=== PATIENT | male | born 1940 | race Caucasian/White ===

== ENCOUNTER 2017-07-17 15:45 | Emergency (ER) | payer MEDICARE, BC ==
[2017-07-17 15:51] VITALS: TEMP 98.2
[2017-07-17 16:05] LABS: Glucose,Whole Blood 424 mg/dL (75-99)
[2017-07-17] MEDS ORDERED: SODIUM CHLORIDE 0.9% 2,000 ML IV ONE (16:08)
--- NOTE | 2017-07-17 16:13 | ED ---
Recheck HPI - General Chief Complaint: Recheck/Abnormal Lab/Rx Stated Complaint: Blood Sugar @ 600 Time Seen by Provider: 07/17/17 15:55 Source: patient, family Mode of arrival: ambulatory Limitations: no limitations - History of Present Illness Initial Comments: Patient is a 76-year-old diabetic male who presents with a chief complaint of hyperglycemia. Patient was instructed by his primary care physician to come to the ER today as he had his labs drawn yesterday and was found to have a blood sugar of 600. Patient has no complaints at this time. On arrival, blood sugar was 440. Patient states he takes metformin for his diabetes but he is noncompliant. Patient admits to polydipsia, and polyuria. Patient denies any shortness of breath, abdominal pain, nausea or vomiting. MD Complaint: abnormal lab - Related Data Home Medications Medication Instructions Recorded Confirmed Lisinopril-Hctz 10-12.5 mg 1 tab PO DAILY 07/17/17 07/17/17 [Zestoretic 10-12.5] metFORMIN HCL 1,000 mg PO BID 07/17/17 07/17/17 Allergies Allergy/AdvReac Type Severity Reaction Status Date / Time No Known Allergies Allergy Verified 07/17/17 16:21 Review of Systems ROS Statement: Those systems with pertinent positive or pertinent negative responses have been documented in the HPI. ROS Other: All systems not noted in ROS Statement are negative. Constitutional: Denies: fever, chills Eyes: Denies: vision change ENT: Denies: ear pain, throat pain Respiratory: Denies: cough, dyspnea Cardiovascular: Denies: chest pain, palpitations Endocrine: Denies: fatigue Gastrointestinal: Denies: abdominal pain, nausea, vomiting Genitourinary: Reports: frequency. Denies: dysuria Musculoskeletal: Denies: back pain Skin: Denies: rash, lesions Neurological: Denies: headache, weakness Psychiatric: Denies: anxiety, depression Past Medical History Past Medical History: Diabetes Mellitus History of Any Multi-Drug Resistant Organisms: None Reported Past Surgical History: Coronary Bypass/CABG Past Psychological History: No Psychological Hx Reported Smoking Status: Former smoker Past Alcohol Use History: None Reported Past Drug Use History: None Reported General Exam Limitations: no limitations General appearance: alert, in no apparent distress Head exam: Present: atraumatic, normocephalic Eye exam: Present: normal appearance, PERRL ENT exam: Present: normal exam, mucous membranes moist Neck exam: Present: normal inspection. Absent: tenderness Respiratory exam: Present: normal lung sounds bilaterally. Absent: respiratory distress, wheezes Cardiovascular Exam: Present: regular rate, normal rhythm, normal heart sounds GI/Abdominal exam: Present: soft. Absent: distended, tenderness, guarding Rectal exam: Present: deferred Extremities exam: Present: normal inspection Back exam: Present: normal inspection Neurological exam: Present: alert, oriented X3, CN II-XII intact, normal gait Psychiatric exam: Present: normal affect, normal mood Skin exam: Present: warm, dry, intact Course Vital Signs 07/17/17 07/17/17 15:48 17:15 Temperature 98.2 F Pulse Rate 89 Respiratory 20 16 Rate Blood Pressure 134/60 O2 Sat by Pulse 98 Oximetry Medical Decision Making - Medical Decision Making Patient is a 76-year-old male, known diabetic, who presents at the request of his primary care physician for hyperglycemia. Patient had his labs drawn yesterday and he had a blood sugar of over 600. Today POC glucose was just over 440. Patient does not show any physical signs of DKA, or hyper-ketotic state. Patient has no complaints at this time, he further denies any abdominal pain, respiratory distress, nausea or vomiting. We'll send basic labs including acetone, and serum osmolality. Patient will be given 2 L of IV fluid initially. 8:22 PM After 2 L of fluid, patient's blood sugar improved to high 300 range. Patient was given 5 units of subcutaneous insulin and another liter of fluid. I attempted to contact patient's primary care physician however he was unavailable. Patient has remained stable in the emergency department for 4-1/2 hours. Blood glucose is trending down, currently in the low 300 range. I'm hesitant to bring the patient's blood sugar down anymore as he admits to being noncompliant, and likely normally lives in a hyperglycemic state. Labs otherwise not indicate any evidence of a hyper-ketotic or hyper-osmolal state. Patient was instructed to take his home medications as prescribed. He is instructed to follow up with primary care and possibly endocrinology if need be. He and his daughter were given specific signs and symptoms that should alert the patient for repeat visit to the emergency department. At this time, patient wishes to be discharged home. I was assured that he has help at home, and people that will check on him. At this time, all questions are answered to the best of my ability, she is stable for discharge. - Lab Data Result diagrams: 07/17/17 16:15 07/17/17 16:15 Lab Results 07/17/17 07/17/17 07/17/17 Range/Units 16:01 16:15 16:15 WBC 8.8 (3.8-10.6) k/uL RBC 4.60 (4.30-5.90) m/uL Hgb 14.3 (13.0-17.5) gm/dL Hct 43.2 (39.0-53.0) % MCV 93.9 (80.0-100.0) fL MCH 31.0 (25.0-35.0) pg MCHC 33.0 (31.0-37.0) g/dL RDW 14.4 (11.5-15.5) % Plt Count 261 (150-450) k/uL Neutrophils % 63 % Lymphocytes % 27 % Monocytes % 6 % Eosinophils % 2 % Basophils % 1 % Neutrophils # 5.5 (1.3-7.7) k/uL Lymphocytes # 2.3 (1.0-4.8) k/uL Monocytes # 0.5 (0-1.0) k/uL Eosinophils # 0.1 (0-0.7) k/uL Basophils # 0.0 (0-0.2) k/uL Sodium 135 L (137-145) mmol/L Potassium 4.8 (3.5-5.1) mmol/L Chloride 96 L (98-107) mmol/L Carbon Dioxide 27 (22-30) mmol/L Anion Gap 12 mmol/L BUN 21 H (9-20) mg/dL Creatinine 1.01 (0.66-1.25) mg/dL Est GFR (MDRD) Af Amer >60 (>60 ml/min/1.73 sqM) Est GFR (MDRD) Non-Af >60 (>60 ml/min/1.73 sqM) Glucose 477 H* (74-99) mg/dL POC Glucose (mg/dL) 424 H (75-99) mg/dL POC Glu Marine Machinist ID Lucero Lambert Osmolality 302 H (280-301) mosm/kg Calcium 9.3 (8.4-10.2) mg/dL Urine Color Urine Appearance (Clear) Urine pH (5.0-8.0) Ur Specific [place] (1.001-1.035) Urine Protein (Negative) Urine Glucose (UA) (Negative) Urine Ketones (Negative) Urine Blood (Negative) Urine Nitrite (Negative) Urine Bilirubin (Negative) Urine Urobilinogen (<2.0) mg/dL Ur Leukocyte Esterase (Negative) Acetone, Qual Negative (Negative) 07/17/17 07/17/17 07/17/17 Range/Units 17:43 18:23 20:02 WBC (3.8-10.6) k/uL RBC (4.30-5.90) m/uL Hgb (13.0-17.5) gm/dL Hct (39.0-53.0) % MCV (80.0-100.0) fL MCH (25.0-35.0) pg MCHC (31.0-37.0) g/dL RDW (11.5-15.5) % Plt Count (150-450) k/uL Neutrophils % % Lymphocytes % % Monocytes % % Eosinophils % % Basophils % % Neutrophils # (1.3-7.7) k/uL Lymphocytes # (1.0-4.8) k/uL Monocytes # (0-1.0) k/uL Eosinophils # (0-0.7) k/uL Basophils # (0-0.2) k/uL Sodium (137-145) mmol/L Potassium (3.5-5.1) mmol/L Chloride (98-107) mmol/L Carbon Dioxide (22-30) mmol/L Anion Gap mmol/L BUN (9-20) mg/dL Creatinine (0.66-1.25) mg/dL Est GFR (MDRD) Af Amer (>60 ml/min/1.73 sqM) Est GFR (MDRD) Non-Af (>60 ml/min/1.73 sqM) Glucose (74-99) mg/dL POC Glucose (mg/dL) 344 H 312 H (75-99) mg/dL POC Glu Marine Machinist ID Lucero Lambert Daniel Osmolality (280-301) mosm/kg Calcium (8.4-10.2) mg/dL Urine Color Light Yellow Urine Appearance Clear (Clear) Urine pH 7.5 (5.0-8.0) Ur Specific [place] 1.023 (1.001-1.035) Urine Protein Negative (Negative) Urine Glucose (UA) 4+ H (Negative) Urine Ketones Negative (Negative) Urine Blood Negative (Negative) Urine Nitrite Negative (Negative) Urine Bilirubin Negative (Negative) Urine Urobilinogen <2.0 (<2.0) mg/dL Ur Leukocyte Esterase Negative (Negative) Acetone, Qual (Negative) Disposition Clinical Impression: Hyperglycemia, Medical non-compliance Disposition: HOME SELF-CARE Condition: Good Instructions: Diabetes Insipidus (ED), Diabetic Hyperglycemia (ED) Referrals: Socrates Finch MD [Primary Care Provider] - 1-2 days
[2017-07-17 16:28] LABS: Basophils % (A) 1 %; CH 32.3; CHCM 34.5; Eosinophils # (A) 0.1 k/uL (0-0.7); Eosinophils % (A) 2 %; HCT 43.2 % (39.0-53.0); HDW 2.56; HGB 14.3 gm/dL (13.0-17.5); Luc # (Auto) 0.19; Luc % (Auto) 2; Lymphocytes # (A) 2.3 k/uL (1.0-4.8); Lymphocytes % (A) 27 %; MCV 93.9 fL (80.0-100.0); Mean Platelet Volume 9.1; Monocytes # (A) 0.5 k/uL (0-1.0); Monocytes % (A) 6 %; Neutrophils # (A) 5.5 k/uL (1.3-7.7); Neutrophils % (A) 63 %; RDW 14.4 % (11.5-15.5); WBC 8.8 k/uL (3.8-10.6); WBC (Perox) 8.93
[2017-07-17 16:35] LABS: Anion Gap 12 mmol/L; Blood Urea Nitrogen 21 mg/dL (9-20); Calcium 9.3 mg/dL (8.4-10.2); Carbon Dioxide 27 mmol/L (22-30); Chloride 96 mmol/L (98-107); Non-African American GFR(MDRD) >60 (>60 ml/min/1.73 sqM); Potassium 4.8 mmol/L (3.5-5.1); Sodium 135 mmol/L (137-145)
[2017-07-17 16:47] LABS: Glucose 477 mg/dL (74-99)
[2017-07-17 17:59] LABS: Appearance,Urine Clear (Clear); Bilirubin,Urine Negative (Negative); Glucose,Urine (UA) 4+ (Negative); Ketones,Urine Negative (Negative); Leukocyte Esterase,Urine Negative (Negative); Nitrite,Urine Negative (Negative); PH, Urine 7.5 (5.0-8.0); Protein,Urine Negative (Negative); Specific Gravity,Urine 1.023 (1.001-1.035); UA Billing (MACRO vs. MICRO) CHEM; Urobilinogen,Urine <2.0 mg/dL (<2.0)
[2017-07-17 18:27] LABS: Glucose,Whole Blood 344 mg/dL (75-99)
[2017-07-17] MEDS ORDERED: INSULIN REGULAR 100 UNIT/ML VIAL SQ ONE (18:37)
[2017-07-17] MEDS ORDERED: SODIUM CHLORIDE 0.9% 1,000 ML IV ONE (18:37)
[2017-07-17 20:17] LABS: Glucose,Whole Blood 312 mg/dL (75-99)
[2017-07-17 20:38] VITALS: BP 146/88; PULSE 78; RESP 18
== END 2017-07-17 20:37 | disposition home or self-care (01) ==
LOC: EC 15:45
DX: E11.65 Type 2 diabetes mellitus with hyperglycemia (principal); Z91.14 Patient's other noncompliance with medication regimen; Z87.891 Personal history of nicotine dependence; Z79.84 Long term (current) use of oral hypoglycemic drugs; Z79.899 Other long term (current) drug therapy; Z95.1 Presence of aortocoronary bypass graft
CPT/HCPCS: 36415; 80048; 81003; 82009; 83930; 85025; 96360; 96361; 99284

== ENCOUNTER 2018-01-30 12:28 | Emergency (ER) | payer BC, MEDICARE ==
[2018-01-30 13:56] LABS: Basophils % (A) 1 %; Eosinophils # (A) 0.1 k/uL (0-0.7); Eosinophils % (A) 2 %; HCT 44.8 % (39.0-53.0); HGB 15.9 gm/dL (13.0-17.5); Lymphocytes % (A) 27 %; MCH 31.7 pg (25.0-35.0); MCHC 35.5 g/dL (31.0-37.0); MCV 89.1 fL (80.0-100.0); Mean Platelet Volume 9.1; Monocytes # (A) 0.7 k/uL (0-1.0); Monocytes % (A) 9 %; Neutrophils # (A) 4.4 k/uL (1.3-7.7); Neutrophils % (A) 59 %; Platelet Count 260 k/uL (150-450); RBC 5.02 m/uL (4.30-5.90); RDW 12.8 % (11.5-15.5); WBC 7.5 k/uL (3.8-10.6)
[2018-01-30 14:07] LABS: Calcium 9.8 mg/dL (8.4-10.2); Potassium 4.2 mmol/L (3.5-5.1); Total Bilirubin 0.5 mg/dL (0.2-1.3)
[2018-01-30] MEDS ORDERED: SODIUM CHLORIDE 0.9% 500 ML IV ONE (14:45)
[2018-01-30] MEDS ORDERED: SODIUM CHLORIDE 0.9% 1,000 ML IV SCH (14:45)
[2018-01-30] MEDS ORDERED: chlorproMAZINE 25 MG TAB PO PRN (14:48)
--- NOTE | 2018-01-30 14:50 | ED ---
Nausea/Vomiting/Diarrhea HPI - General Chief complaint: Nausea/Vomiting/Diarrhea Stated complaint: Abd pain Time Seen by Provider: 01/30/18 13:29 Source: patient, family Mode of arrival: wheelchair Limitations: no limitations - History of Present Illness Initial comments: [age] years old male comes in with abdominal discomfort he threw up yesterday twice and he also has a problem with handcuffs and heartburn for a few weeks now and on at this time he has no handcuffs but he was bothered by the earlier today also complaining about heartburn for 2 days, he denies any chest pain denies any shortness of breath no pleuritic chest pain mild discomfort in the epigastric area when moving his bowels pretty good, no trouble voiding no frequency urgency dysuria no symptoms of TIA or CVA - Related Data Home Medications Medication Instructions Recorded Confirmed Lisinopril-Hctz 10-12.5 mg 1 tab PO HS 07/17/17 01/30/18 [Zestoretic 10-12.5] metFORMIN HCL 1,000 mg PO BID 07/17/17 01/30/18 Aspirin EC [Ecotrin Low Dose] 81 mg PO HS 01/30/18 01/30/18 Insulin NPH Hum/Reg Insulin Hm 10 unit SQ AC-BRKFST@0700 01/30/18 01/30/18 [NovoLIN 70-30 100 UNIT/ML VIAL] Insulin NPH Hum/Reg Insulin Hm 20 unit SQ AC-SUPPER 01/30/18 01/30/18 [NovoLIN 70-30 100 UNIT/ML VIAL] Previous Rx's Medication Instructions Recorded Ranitidine HCl [Zantac] 150 mg PO BID #60 tab 01/30/18 Allergies Allergy/AdvReac Type Severity Reaction Status Date / Time No Known Allergies Allergy Verified 01/30/18 14:56 Review of Systems ROS Statement: Those systems with pertinent positive or pertinent negative responses have been documented in the HPI. ROS Other: All systems not noted in ROS Statement are negative. Past Medical History Past Medical History: Diabetes Mellitus History of Any Multi-Drug Resistant Organisms: None Reported Past Surgical History: Coronary Bypass/CABG Past Psychological History: No Psychological Hx Reported Smoking Status: Former smoker Past Alcohol Use History: None Reported Past Drug Use History: None Reported General Exam - General Exam Comments Initial Comments: General: The patient is awake and alert, in no distress, and does not appear acutely ill. GCS is 15 Skin: Skin is warm and dry and no rashes or lesions are noted. Eye: Pupils are equal, round and reactive to light, extra-ocular movements are intact; there is normal conjunctiva bilaterally. Ears, nose, mouth and throat: There are moist mucous membranes and no oral lesions. Neck: The neck is supple, there is no tenderness, no signs of meningitis Cardiovascular: There is a regular rate and rhythm. No murmur, rub or gallop is appreciated. Respiratory: To auscultation bilateral, no wheezing no rhonchi no distress respiratory wilkes noticed Gastrointestinal: Soft, non-distended, non-tender abdomen without masses or organomegaly noted. There is no rebound or guarding present. Bowel sounds are unremarkable. Back: There is no tenderness to palpation in the midline. There is no obvious deformity. Musculoskeletal: Normal ROM, no tenderness, There is no pedal edema. There is no calf tenderness or swelling. No cords were appreciated. Neurological: CN II-XII intact, Cranial nerves III through XII are intact. There are no obvious motor or sensory deficits. Coordination appears grossly intact. Speech is normal. Psychiatric: Cooperative, appropriate mood & affect, normal judgment. Limitations: no limitations Course Vital Signs 01/30/18 01/30/18 01/30/18 12:38 15:51 15:53 Temperature 97.6 F Pulse Rate 79 Pulse Rate [ 76 76 Printing Equipment Mechanic Apprentice ] Respiratory 18 Rate Blood Pressure 118/58 Blood Pressure 133/69 126/70 [Right Arm] O2 Sat by Pulse 96 Oximetry 01/30/18 01/30/18 15:54 16:53 Temperature 98.4 F Pulse Rate 81 Pulse Rate [ 87 Printing Equipment Mechanic Apprentice ] Respiratory 16 Rate Blood Pressure 127/63 Blood Pressure 141/74 [Right Arm] O2 Sat by Pulse 95 Oximetry EKG is a normal sinus rhythm ventricular rate is 81 NV interval is 158 QRS duration is 68 QT/QTC 378/439 review of this EKG does not reveal any ST elevation or ST depression Patient is SENT PATIENT IS REASSESSED AT 1645, x-rays unremarkable he noticed some gallstones and the chest x-ray, troponin, CBC, comp his [place] metabolic panel, EKG are all unremarkable patient be gone home to follow with her family doctor or return to the ER if symptoms get worse Medical Decision Making - Lab Data Result diagrams: 01/30/18 13:44 04/07/18 13:44 Lab Results 01/30/18 01/30/18 01/30/18 Range/Units 13:44 13:44 13:44 WBC 7.5 (3.8-10.6) k/uL RBC 5.02 (4.30-5.90) m/uL Hgb 15.9 (13.0-17.5) gm/dL Hct 44.8 (39.0-53.0) % MCV 89.1 (80.0-100.0) fL MCH 31.7 (25.0-35.0) pg MCHC 35.5 (31.0-37.0) g/dL RDW 12.8 (11.5-15.5) % Plt Count 260 (150-450) k/uL Neutrophils % 59 % Lymphocytes % 27 % Monocytes % 9 % Eosinophils % 2 % Basophils % 1 % Neutrophils # 4.4 (1.3-7.7) k/uL Lymphocytes # 2.0 (1.0-4.8) k/uL Monocytes # 0.7 (0-1.0) k/uL Eosinophils # 0.1 (0-0.7) k/uL Basophils # 0.0 (0-0.2) k/uL Sodium 139 (137-145) mmol/L Potassium 4.2 (3.5-5.1) mmol/L Chloride 98 (98-107) mmol/L Carbon Dioxide 24 (22-30) mmol/L Anion Gap 17 mmol/L BUN 34 H (9-20) mg/dL Creatinine 1.10 (0.66-1.25) mg/dL Est GFR (CKD-EPI)AfAm 74 (>60 ml/min/1.73 sqM) Est GFR (CKD-EPI)NonAf 64 (>60 ml/min/1.73 sqM) Glucose 183 H (74-99) mg/dL Calcium 9.8 (8.4-10.2) mg/dL Total Bilirubin 0.5 (0.2-1.3) mg/dL AST 20 (17-59) U/L ALT 18 L (21-72) U/L Alkaline Phosphatase 56 (38-126) U/L Troponin I (0.000-0.034) ng/mL C-Reactive Protein 8.0 (<10.0) mg/L Total Protein 7.0 (6.3-8.2) g/dL Albumin 4.0 (3.5-5.0) g/dL Amylase 50 (30-110) U/L Lipase 59 (23-300) U/L 01/30/18 Range/Units 13:44 WBC (3.8-10.6) k/uL RBC (4.30-5.90) m/uL Hgb (13.0-17.5) gm/dL Hct (39.0-53.0) % MCV (80.0-100.0) fL MCH (25.0-35.0) pg MCHC (31.0-37.0) g/dL RDW (11.5-15.5) % Plt Count (150-450) k/uL Neutrophils % % Lymphocytes % % Monocytes % % Eosinophils % % Basophils % % Neutrophils # (1.3-7.7) k/uL Lymphocytes # (1.0-4.8) k/uL Monocytes # (0-1.0) k/uL Eosinophils # (0-0.7) k/uL Basophils # (0-0.2) k/uL Sodium (137-145) mmol/L Potassium (3.5-5.1) mmol/L Chloride (98-107) mmol/L Carbon Dioxide (22-30) mmol/L Anion Gap mmol/L BUN (9-20) mg/dL Creatinine (0.66-1.25) mg/dL Est GFR (CKD-EPI)AfAm (>60 ml/min/1.73 sqM) Est GFR (CKD-EPI)NonAf (>60 ml/min/1.73 sqM) Glucose (74-99) mg/dL Calcium (8.4-10.2) mg/dL Total Bilirubin (0.2-1.3) mg/dL AST (17-59) U/L ALT (21-72) U/L Alkaline Phosphatase (38-126) U/L Troponin I <0.012 (0.000-0.034) ng/mL C-Reactive Protein (<10.0) mg/L Total Protein (6.3-8.2) g/dL Albumin (3.5-5.0) g/dL Amylase (30-110) U/L Lipase (23-300) U/L Disposition Clinical Impression: Heartburn, Hiccup Disposition: HOME SELF-CARE Condition: Good Instructions: Acute Nausea and Vomiting in Children (ED), Acute Nausea and Vomiting (ED) Prescriptions: Ranitidine HCl [Zantac] 150 mg PO BID #60 tab Referrals: Socrates Finch MD [Primary Care Provider] - 1-2 days
[2018-01-30] MEDS ORDERED: MAG HYDROX/AL HYDROX/SIMETH 30 ML, HYOSCYAMINE ELIXIR 10 ML, CIMETIDINE HCL 300 MG, LID... PO STA ×4 (14:59)
--- NOTE | 2018-01-30 15:08 | XR ---
EXAMINATION TYPE: XR KUB DATE OF EXAM: 01/30/2018 2:58 PM CLINICAL HISTORY: Nausea vomiting and diarrhea with pain. TECHNIQUE: Two Upright KUB images of the abdomen are obtained. COMPARISON: None. FINDINGS: Scattered gas is seen in non-distended small bowel loops. Gas and fecal material is seen in non-distended colon. Numerous rim calcified gallstones are present. There is partial visualization o f surgical wires and mediastinal clips. Lung bases are clear. No pneumoperitoneum is evident. Vascula r calcification in pelvis is seen. Visualized osseous structures are intact. IMPRESSION: Overall nonobstructive bowel gas pattern. Numerous gallstones noted.
[2018-01-30 16:53] VITALS: BP 127/63; PULSE 81; RESP 16; TEMP 98.4
== END 2018-01-30 17:05 | disposition home or self-care (01) ==
LOC: EC 12:28
DX: R12 Heartburn (principal); R06.6 Hiccough; K80.80 Other cholelithiasis without obstruction; E11.9 Type 2 diabetes mellitus without complications; Z87.891 Personal history of nicotine dependence; Z79.4 Long term (current) use of insulin; Z79.899 Other long term (current) drug therapy; Z79.82 Long term (current) use of aspirin
CPT/HCPCS: 36415; 74018; 80053; 82150; 83690; 84484; 85025; 86140; 93005; 96360; 99284

== ENCOUNTER 2019-02-19 13:50 | Emergency (ER) | payer MEDICARE ==
[2019-02-19 14:00] VITALS: TEMP 97.9
[2019-02-19] MEDS ORDERED: SODIUM CHLORIDE 0.9% 1,000 ML IV STA ×2 (14:53)
[2019-02-19 15:23] LABS: Albumin 4.4 g/dL (3.5-5.0); Calcium 9.6 mg/dL (8.4-10.2); Total Bilirubin 0.8 mg/dL (0.2-1.3); Total Protein 7.3 g/dL (6.3-8.2)
[2019-02-19 15:24] VITALS: PULSE 76
--- NOTE | 2019-02-19 15:27 | ED ---
General Adult HPI - General Chief complaint: Neuro Symptoms/Deficit Stated complaint: Unsteady Time Seen by Provider: 02/19/19 14:32 Source: patient, RN notes reviewed, old records reviewed Mode of arrival: wheelchair Limitations: physical limitation - History of Present Illness Initial comments: Patient 78-year-old male presents for urgency department today with his daughter with complaints of unsteady gait and drifting to the right side with walking for the past week. Patient has had a chronic right leg swelling after coronary artery bypass surgery and venous grafting 20 years ago. He denies any recent fall or trauma to the leg. Patient states he has no pain at this time. He states that this uses more weak on the right leg as far as ambulating. Patient denies any headache or chest pain at this time. Patient's family reports he has a chronic right-sided lip for the past 3 years. Patient is walking more and seems to be more pronounced. He denies any right leg pain at this time. - Related Data Home Medications Medication Instructions Recorded Confirmed Lisinopril-Hctz 10-12.5 mg 0.5 tab PO HS 07/17/17 02/19/19 [Zestoretic 10-12.5] metFORMIN HCL 1,000 mg PO BID 07/17/17 02/19/19 Aspirin EC [Ecotrin Low Dose] 81 mg PO HS 01/30/18 02/19/19 Insulin NPH Hum/Reg Insulin Hm 10 unit SQ AC-BRKFST@0700 01/30/18 02/19/19 [NovoLIN 70-30 100 UNIT/ML VIAL] Insulin NPH Hum/Reg Insulin Hm 20 unit SQ AC-SUPPER 01/30/18 02/19/19 [NovoLIN 70-30 100 UNIT/ML VIAL] Previous Rx's Medication Instructions Recorded Ranitidine HCl [Zantac] 150 mg PO BID #60 tab 01/30/18 Allergies Allergy/AdvReac Type Severity Reaction Status Date / Time No Known Allergies Allergy Verified 02/19/19 14:28 Review of Systems ROS Statement: Those systems with pertinent positive or pertinent negative responses have been documented in the HPI. ROS Other: All systems not noted in ROS Statement are negative. Past Medical History Past Medical History: Coronary Artery Disease (CAD), Dementia, Diabetes Mellitus, GERD/Reflux, Hypertension Additional Past Medical History / Comment(s): edema History of Any Multi-Drug Resistant Organisms: None Reported Past Surgical History: Coronary Bypass/CABG Past Psychological History: No Psychological Hx Reported Smoking Status: Former smoker Past Alcohol Use History: None Reported Past Drug Use History: None Reported General Exam - General Exam Comments Initial Comments: This is a pleasant 78-year-old male. Alert and oriented. No distress. General: Well appearing, well nourished, in no distress. Oriented x 3, normal mood and affect . Ambulating with right leg catching up to left leg leading. Family reports this is normal and for 3 years. Skin: Good turgor, no rash, unusual bruising or prominent lesions Hair: Normal texture and distribution. HEENT: Head: Normocephalic, atraumatic, no visible or palpable masses, depressions, or scaring. Eyes: Visual acuity intact, conjunctiva clear, sclera non-icteric, EOM intact, PERRL. Ears: EACs clear, TMs translucent & cone of light visualized. hearing intact. Nose: No external lesions, mucosa non-inflamed, septum and turbinates normal Mouth: Mucous membranes moist, no mucosal lesions. Teeth/Gums: No obvious caries or periodontal disease. No gingival inflammation or significant resorption. Pharynx: Mucosa non-inflamed, no tonsillar hypertrophy or exudate Neck: Supple, without lesions, bruits, or adenopathy, thyroid non-enlarged and non-tender Heart: No cardiomegaly or thrills; regular rate and rhythm, no murmur or gallop Lungs: Clear to auscultation and percussion Abdomen: Bowel sounds normal, no tenderness, organomegaly, masses, or hernia Back: Spine normal without deformity or tenderness, no CVA tenderness Extremities: No amputations or deformities. Minimal swelling on RLE, family reports it is chronic. Musculoskeletal: Normal gait and station. No misalignment, asymmetry, crepitation, defects, tenderness, masses, effusions, decreased range of motion, instability, atrophy or abnormal strength or tone in the head, neck, spine, ribs, pelvis or extremities. Neurologic: CN 2-12 normal. Sensation to pain, touch, and proprioception normal. DTRs normal in upper and lower extremities. No pathologic reflexes. Psychiatric: Oriented X3, intact recent and remote memory, judgment and insight, normal mood and affect. Limitations: physical limitation Course Vital Signs 02/19/19 02/19/19 02/19/19 13:56 14:30 15:00 Temperature 97.9 F Pulse Rate 71 67 76 Respiratory 18 60 H 64 H Rate Blood Pressure 156/74 164/75 143/82 O2 Sat by Pulse 98 98 98 Oximetry EKG Findings - EKG Comments: EKG Findings:: EKG shows a sinus of the normal EKG. Ventricular rate of 70 bpm period. It was 170 ms. QS duration 74 ms. QTQTC's 3/419 ms. - EKG Results: EKG: WNL, sinus rhythm Medical Decision Making - Medical Decision Making Patient is a 78-year-old male presents emergency department today for losing his balance when getting up from sitting to standing today. Patient's daughter states that sometimes his right leg gets tired and weak. Patient has had these episodes in the hands. They brought in today for further evaluation. He denies any headache or complaints. His at NH of 0. He does have a chronic right leg limp for the past 3 years. Patient's family reports this is stable and no change. Patient states he otherwise feels well. Vital signs stable blood work was reviewed and EKG was reviewed and unremarkable. CT shows chronic small vessel ischemic changes but no acute abnormality. Chest x-ray was normal as well. At this time Patient and family are informed that they can be transferred for further neurology workup, however it would be difficult his right leg limping has been greater than 3 years. On their request they plan to be discharged home with follow-up with her primary care doctor. The wound again was reevaluated and NIH is 0. I discussed appropriate follow-up and strict return parameters. Patient will return to extended care facility. - Lab Data Result diagrams: 02/19/19 15:04 02/19/19 15:04 Lab Results 02/19/19 02/19/19 02/19/19 Range/Units 15:04 15:04 15:04 WBC 6.8 (3.8-10.6) k/uL RBC 4.77 (4.30-5.90) m/uL Hgb 14.3 (13.0-17.5) gm/dL Hct 44.4 (39.0-53.0) % MCV 92.9 (80.0-100.0) fL MCH 29.9 (25.0-35.0) pg MCHC 32.2 (31.0-37.0) g/dL RDW 14.6 (11.5-15.5) % Plt Count 227 (150-450) k/uL Neutrophils % 57 % Lymphocytes % 26 % Monocytes % 9 % Eosinophils % 3 % Basophils % 1 % Neutrophils # 3.9 (1.3-7.7) k/uL Lymphocytes # 1.8 (1.0-4.8) k/uL Monocytes # 0.6 (0-1.0) k/uL Eosinophils # 0.2 (0-0.7) k/uL Basophils # 0.1 (0-0.2) k/uL PT 9.9 (9.0-12.0) sec INR 0.9 (<1.2) APTT 23.3 (22.0-30.0) sec Sodium 139 (137-145) mmol/L Potassium 5.9 H (3.5-5.1) mmol/L Chloride 104 (98-107) mmol/L Carbon Dioxide 23 (22-30) mmol/L Anion Gap 12 mmol/L BUN 23 H (9-20) mg/dL Creatinine 1.14 (0.66-1.25) mg/dL Est GFR (CKD-EPI)AfAm 71 (>60 ml/min/1.73 sqM) Est GFR (CKD-EPI)NonAf 61 (>60 ml/min/1.73 sqM) Glucose 133 H (74-99) mg/dL Calcium 9.6 (8.4-10.2) mg/dL Total Bilirubin 0.8 (0.2-1.3) mg/dL AST 34 (17-59) U/L ALT 25 (21-72) U/L Alkaline Phosphatase 65 (38-126) U/L Troponin I (0.000-0.034) ng/mL Total Protein 7.3 (6.3-8.2) g/dL Albumin 4.4 (3.5-5.0) g/dL 02/19/19 Range/Units 15:04 WBC (3.8-10.6) k/uL RBC (4.30-5.90) m/uL Hgb (13.0-17.5) gm/dL Hct (39.0-53.0) % MCV (80.0-100.0) fL MCH (25.0-35.0) pg MCHC (31.0-37.0) g/dL RDW (11.5-15.5) % Plt Count (150-450) k/uL Neutrophils % % Lymphocytes % % Monocytes % % Eosinophils % % Basophils % % Neutrophils # (1.3-7.7) k/uL Lymphocytes # (1.0-4.8) k/uL Monocytes # (0-1.0) k/uL Eosinophils # (0-0.7) k/uL Basophils # (0-0.2) k/uL PT (9.0-12.0) sec INR (<1.2) APTT (22.0-30.0) sec Sodium (137-145) mmol/L Potassium (3.5-5.1) mmol/L Chloride (98-107) mmol/L Carbon Dioxide (22-30) mmol/L Anion Gap mmol/L BUN (9-20) mg/dL Creatinine (0.66-1.25) mg/dL Est GFR (CKD-EPI)AfAm (>60 ml/min/1.73 sqM) Est GFR (CKD-EPI)NonAf (>60 ml/min/1.73 sqM) Glucose (74-99) mg/dL Calcium (8.4-10.2) mg/dL Total Bilirubin (0.2-1.3) mg/dL AST (17-59) U/L ALT (21-72) U/L Alkaline Phosphatase (38-126) U/L Troponin I <0.012 (0.000-0.034) ng/mL Total Protein (6.3-8.2) g/dL Albumin (3.5-5.0) g/dL - Radiology Data Radiology results: report reviewed Cerebral atrophy and chronic small vessel ischemia. No acute intracranial abnormality. CXR shows No active cardio coronary disease. Disposition Clinical Impression: Gait difficulty Disposition: HOME SELF-CARE Condition: Good Instructions (If sedation given, give patient instructions): Fall Prevention for Older Adults (ED) Additional Instructions: Rest, remain hydrated. Take her time from going from sitting to standing positions. Follow-up with PCP. Is patient prescribed a controlled substance at d/c from ED?: No Referrals: Socrates Finch MD [Primary Care Provider] - 1-2 days Time of Disposition: 16:40
[2019-02-19 15:29] LABS: Basophils # (A) 0.1 k/uL (0-0.2); Basophils % (A) 1 %; Eosinophils # (A) 0.2 k/uL (0-0.7); Eosinophils % (A) 3 %; HCT 44.4 % (39.0-53.0); HGB 14.3 gm/dL (13.0-17.5); Lymphocytes # (A) 1.8 k/uL (1.0-4.8); Lymphocytes % (A) 26 %; MCH 29.9 pg (25.0-35.0); MCHC 32.2 g/dL (31.0-37.0); MCV 92.9 fL (80.0-100.0); Mean Platelet Volume 8.9; Monocytes # (A) 0.6 k/uL (0-1.0); Monocytes % (A) 9 %; Neutrophils # (A) 3.9 k/uL (1.3-7.7); Neutrophils % (A) 57 %; Platelet Count 227 k/uL (150-450); RBC 4.77 m/uL (4.30-5.90); RDW 14.6 % (11.5-15.5); WBC 6.8 k/uL (3.8-10.6)
[2019-02-19 15:48] LABS: Potassium 5.9 mmol/L (3.5-5.1)
--- NOTE | 2019-02-19 15:57 | CT ---
EXAMINATION TYPE: CT brain wo con DATE OF EXAM: 02/19/2019 COMPARISON: None HISTORY: Unsteady gait. CT DLP: 1079.4 mGycm Automated exposure control for dose reduction was used. FINDINGS: There is cerebral cortical atrophy. There is patchy hypodensity in the periventricular white matter. There is no mass effect nor midline shift. There is no sign of intracranial hemorrhage. Calvarium is intact. IMPRESSION: CEREBRAL ATROPHY AND CHRONIC SMALL VESSEL ISCHEMIA. NO ACUTE INTRACRANIAL ABNORMALITY.
--- NOTE | 2019-02-19 16:00 | XR ---
EXAMINATION TYPE: XR chest 2V DATE OF EXAM: 02/19/2019 COMPARISON: NONE HISTORY: Altered mental status TECHNIQUE: Frontal and lateral views of the chest are obtained. FINDINGS: There is no heart failure nor confluent pneumonic infiltrate. There are sternal wires. Cos tophrenic angles are clear. Bony thorax is intact. IMPRESSION: No active cardiopulmonary disease.
[2019-02-19 16:09] LABS: INR 0.9 (<1.2); Partial Thromboplastin Time 23.3 sec (22.0-30.0); Prothrombin Time 9.9 sec (9.0-12.0)
[2019-02-19 16:51] VITALS: BP 169/84; RESP 18
== END 2019-02-19 17:07 | disposition home or self-care (01) ==
LOC: EC 13:50
DX: R26.81 Unsteadiness on feet (principal); M79.89 Other specified soft tissue disorders; R29.898 Other symptoms and signs involving the musculoskeletal system; I67.82 Cerebral ischemia; G31.9 Degenerative disease of nervous system, unspecified; F02.80 Dementia in other diseases classified elsewhere, unspecified severity, without behavioral disturbance, psychotic disturbance, mood disturbance, and anxiety; I25.10 Atherosclerotic heart disease of native coronary artery without angina pectoris; E11.9 Type 2 diabetes mellitus without complications; I10 Essential (primary) hypertension; Z87.891 Personal history of nicotine dependence; Z81.8 Family history of other mental and behavioral disorders; Z79.4 Long term (current) use of insulin; Z79.82 Long term (current) use of aspirin; Z79.899 Other long term (current) drug therapy; Z95.1 Presence of aortocoronary bypass graft
CPT/HCPCS: 36415; 70450; 71046; 80053; 84484; 85025; 85610; 85730; 93005; 96360; 99285

== ENCOUNTER 2019-02-22 08:41 | Emergency (ER) | payer MEDICARE ==
[2019-02-22 08:59] VITALS: TEMP 98.1
--- NOTE | 2019-02-22 09:29 | ED ---
General Adult HPI - General Chief complaint: Extremity Injury, Upper Stated complaint: infection Time Seen by Provider: 02/22/19 08:57 Source: patient Mode of arrival: ambulatory Limitations: no limitations - History of Present Illness Initial comments: Patient is a 75-year-old male with history of dementia presenting to the emergency department with right hand pain due to fall. Patient states that he fell yesterday on his right elbow but cannot recall the exact fall mechanism. Patient states that he lives at [facility] and is unsure why he wasn't brought to the emergency room yesterday. Patient has not taken any medication to relieve the pain. Patient denies loss of consciousness, headaches or blurry vision at the time of the incident. - Related Data Home Medications Medication Instructions Recorded Confirmed Lisinopril-Hctz 10-12.5 mg 0.5 tab PO HS 07/17/17 02/22/19 [Zestoretic 10-12.5] metFORMIN HCL 1,000 mg PO BID 07/17/17 02/22/19 Aspirin EC [Ecotrin Low Dose] 81 mg PO HS 01/30/18 02/22/19 Insulin NPH Hum/Reg Insulin Hm 10 unit SQ AC-BRKFST@0700 01/30/18 02/22/19 [NovoLIN 70-30 100 UNIT/ML VIAL] Insulin NPH Hum/Reg Insulin Hm 20 unit SQ AC-SUPPER 01/30/18 02/22/19 [NovoLIN 70-30 100 UNIT/ML VIAL] Previous Rx's Medication Instructions Recorded Ranitidine HCl [Zantac] 150 mg PO BID #60 tab 01/30/18 Ibuprofen [Motrin] 200 mg PO Q6HR PRN #20 tab 02/22/19 Allergies Allergy/AdvReac Type Severity Reaction Status Date / Time No Known Allergies Allergy Verified 02/22/19 09:01 Review of Systems ROS Statement: Those systems with pertinent positive or pertinent negative responses have been documented in the HPI. ROS Other: All systems not noted in ROS Statement are negative. Past Medical History Past Medical History: Coronary Artery Disease (CAD), Dementia, Diabetes Mellitus, GERD/Reflux, Hypertension Additional Past Medical History / Comment(s): edema History of Any Multi-Drug Resistant Organisms: None Reported Past Surgical History: Coronary Bypass/CABG Past Psychological History: No Psychological Hx Reported Smoking Status: Former smoker Past Alcohol Use History: None Reported Past Drug Use History: None Reported General Exam Limitations: no limitations, language barrier (Mild) General appearance: alert, in no apparent distress Head exam: Present: atraumatic, normocephalic, normal inspection Eye exam: Present: normal appearance, PERRL, EOMI ENT exam: Present: normal exam Respiratory exam: Present: normal lung sounds bilaterally. Absent: wheezes, rales, rhonchi, stridor Cardiovascular Exam: Present: regular rate, normal rhythm, normal heart sounds Right Shoulder Exam: Present: normal inspection, full ROM Upper Arm exam: Present: normal inspection, full ROM Elbow exam: Present: full ROM, tenderness (Posterior aspect of the elbow), abrasion (3 cm linear abrasion). Absent: laceration, ecchymosis Forearm Wrist exam: Present: deformity (Mid forearm). Absent: full ROM (Limited wrist flexion and extension as well as mild limitations with pronation and supination), abrasion, crepitus, tenderness over anatomical snuff box Hand Wrist exam: Present: tenderness (Posterior aspect of the hand), swelling (Mild), ecchymosis (Posterior aspect of), erythema. Absent: full ROM, abrasion, crepitus Neurosensory exam: Present: 2-point discrimination Vascular: Present: normal capillary refill. Absent: pulse deficit radial art Neurological exam: Present: alert Psychiatric exam: Present: normal affect Skin exam: Present: warm Course Vital Signs 02/22/19 08:54 Temperature 98.1 F Pulse Rate 75 Respiratory 16 Rate Blood Pressure 184/98 O2 Sat by Pulse 96 Oximetry Medical Decision Making - Medical Decision Making Patient is 78-year-old male with history of dementia presenting to the emergency department with the chief complaint of right hand pain after a fall. X-ray of the forearm, elbow and hand was obtained. X-rays are unremarkable for fractures. Radiologist is a concern for possible cellulitis or abscess but it doesn't correlate clinically. Forearm and and wrists Aneudy wrap splint was given. Patient and daughter advised to follow up with orthopedics. Also advised to return to emergency department if symptoms worsen Case discussed with physician. Disposition Clinical Impression: Sprain and strain of wrist Disposition: HOME SELF-CARE Condition: Stable Instructions (If sedation given, give patient instructions): Wrist Injury (ED), Hand Sprain (ED) Additional Instructions: Please use ibuprofen for pain control as needed and use ice pack 4 times a day for 10-20 minutes. Please follow with orthopedics. Please return to the Emergency Department if symptoms worsen or any other concerns. Is patient prescribed a controlled substance at d/c from ED?: No Referrals: Socrates Finch MD [Primary Care Provider] - 1-2 days Bi Hinds MD [STAFF PHYSICIAN] - 1-2 days Time of Disposition: 10:33
--- NOTE | 2019-02-22 09:50 | XR ---
EXAMINATION TYPE: XR elbow limited RT DATE OF EXAM: 02/22/2019 COMPARISON: NONE HISTORY: 78-year-old male with redness and swelling TECHNIQUE: 3 views FINDINGS: Synovial calcifications are present. No elbow joint effusion. Mild soft tissue swelling suggested. No acute fracture, subluxation, or dislocation seen. IMPRESSION: Mild soft tissue swelling. No elbow joint effusion. Scattered synovial calcifications could be idiopa thic or could reflect underlying CPPD or gout. No acute osseous abnormality seen.
--- NOTE | 2019-02-22 10:00 | XR ---
EXAMINATION TYPE: XR forearm RT, XR hand complete RT DATE OF EXAM: 02/22/2019 CLINICAL HISTORY: Redness and swelling TECHNIQUE: Two views of the right forearm are obtained. COMPARISON: None. FINDINGS: There is no acute fracture or dislocation seen in the right radius or ulna. There is mild focal soft tissue swelling is seen over the dorsal and medial aspect of the right forearm at the mid diaphysis without focal osseous abnormality. No cortical erosion. There is diffuse osseous deminerali zation, well-corticated fragments of the carpal bones likely sequela prior injury, chondrocalcinosis, and mild arthropathy of the first carpometacarpal joint and elbow. No joint effusion is seen. IMPRESSION: 1. There is no acute fracture or dislocation seen in the right radius, ulna, or wrist. Mild soft tiss ue swelling is seen of the forearm. Correlate for cellulitis or abscess. 2. Calcification of the triangle fibrocartilage can be seen in CPPD or other arthropathies. Well-rupinder icated osseous fragments around the carpal bones likely are sequela of prior injury. 3. Diffuse osseous demineralization.
[2019-02-22 11:16] VITALS: BP 169/87; PULSE 72; RESP 18
== END 2019-02-22 11:17 | disposition home or self-care (01) ==
LOC: EC 08:41
DX: S63.501A Unspecified sprain of right wrist, initial encounter (principal); S66.911A Strain of unspecified muscle, fascia and tendon at wrist and hand level, right hand, initial encounter; I25.10 Atherosclerotic heart disease of native coronary artery without angina pectoris; E11.9 Type 2 diabetes mellitus without complications; I10 Essential (primary) hypertension; Z79.82 Long term (current) use of aspirin; Z79.4 Long term (current) use of insulin; Z79.899 Other long term (current) drug therapy; Z87.891 Personal history of nicotine dependence; Z95.5 Presence of coronary angioplasty implant and graft; W01.0XXA Fall on same level from slipping, tripping and stumbling without subsequent striking against object, initial encounter
CPT/HCPCS: 99283

== ENCOUNTER → 2019-02-23 | Outpatient (CLI) | payer MEDICARE ==
--- NOTE | 2019-02-23 13:17 | XR ---
EXAMINATION TYPE: XR chest 2V DATE OF EXAM: 02/23/2019 COMPARISON: Prior chest x-ray February 19, 2019. HISTORY: MRI clearance. TECHNIQUE: Frontal and lateral views of the chest are obtained. FINDINGS: Post-CABG changes with mediastinal clips and sternal wires is redemonstrated. Overlying epi cardial pacer wires are again seen. Elevated left hemidiaphragm is redemonstrated. There is no new zamora spicious focal air space opacity, pleural effusion, or pneumothorax seen. The cardiac silhouette siz e remains enlarged. The osseous structures are intact. IMPRESSION: Epicardial pacer wires are redemonstrated which would prevent MRI study.
== END | disposition home or self-care (01) ==
LOC: RADXRMAIN 12:20
PROVIDERS: ATTEND Nurse Practitioner
DX: Z01.818 Encounter for other preprocedural examination (principal); Z18.10 Retained metal fragments, unspecified
CPT/HCPCS: 71046

== ENCOUNTER → 2019-03-07 | Outpatient (CLI) | payer MEDICARE ==
--- NOTE | 2019-03-07 23:01 | MR ---
MR right wrist without contrast HISTORY: Nondisplaced fracture right wrist Multiplanar multisequence imaging obtained through the right wrist. Correlation to plain film dated 02/22/2018 Motion is present on the exam. Increased T2 signal present within the distal radius is noted dorsally. Joint space loss present at t he radiocarpal joint. Scattered increased T2 signal present focally in the carpal bones. No evident f lexor or extensor tendon disruption. Triangular fibrocartilage felt to be intact. There is fluid sign al at the level of the scapholunate ligament, difficult to exclude tear. Linear low signal at the rad ial styloid could possibly represent nondisplaced fracture. IMPRESSION: Findings could be posttraumatic and represent nondisplaced radiostyloid fracture, no clin ical history of trauma however. There is likely underlying arthropathy. Abnormal marrow signal is non specific, correlate to exclude infection. There is motion on the exam. Additional findings above. Dif ficult to exclude scapholunate ligament disruption.
== END | disposition home or self-care (01) ==
LOC: RADMRIMAIN 19:21
PROVIDERS: ATTEND Orthopaedic Surgery Hand Surgery
DX: Z01.818 Encounter for other preprocedural examination (principal); S62.034A Nondisplaced fracture of proximal third of navicular [scaphoid] bone of right wrist, initial encounter for closed fracture; E11.9 Type 2 diabetes mellitus without complications; I10 Essential (primary) hypertension

== ENCOUNTER 2019-04-02 08:52 | Emergency (ER) | payer MEDICARE ==
[2019-04-02 09:07] VITALS: RESP 16
--- NOTE | 2019-04-02 09:27 | XR ---
EXAMINATION TYPE: XR orbit complete bilateral, 3 views DATE OF EXAM: 04/02/2019 COMPARISON: NONE HISTORY: Pain following trauma FINDINGS: The orbits are unremarkable. The orbital margins appear intact. The maxillary sinuses appea r normal. IMPRESSION: NORMAL PLAIN FILM OF THE ORBITS.
--- NOTE | 2019-04-02 09:49 | ED ---
General Adult HPI - General Chief complaint: Fall Stated complaint: Black eye Time Seen by Provider: 04/02/19 08:55 Source: patient, RN notes reviewed Mode of arrival: EMS Limitations: no limitations - History of Present Illness Initial comments: This is a 78-year-old male who presents emergency Department because of a black eye on the right. Patient has dementia and is alert and oriented 2 which is his baseline and he continues to be at his baseline today according to EMS. Patient does not know what happened to his eye he thinks he might of walked into something but he is unsure. Patient denies any pain patient denies headache patient denies any neck pain patient denies any other complaints. Patient is able to ambulate without problem according to EMS. - Related Data Home Medications Medication Instructions Recorded Confirmed metFORMIN HCL 1,000 mg PO BID 07/17/17 04/02/19 Aspirin EC [Ecotrin Low Dose] 81 mg PO HS 01/30/18 04/02/19 Acetaminophen Tab [Tylenol Tab] 325 - 650 mg PO Q8H PRN 04/02/19 04/02/19 Insulin NPH Hum/Reg Insulin Hm 10 unit SQ AC-BRKFST 04/02/19 04/02/19 [humuLIN 70/30 Kwikpen] Insulin NPH Hum/Reg Insulin Hm 20 unit SQ AC-SUPPER 04/02/19 04/02/19 [humuLIN 70/30 Kwikpen] amLODIPine [Norvasc] 10 mg PO DAILY PRN 04/02/19 04/02/19 Previous Rx's Medication Instructions Recorded Ranitidine HCl [Zantac] 150 mg PO BID #60 tab 01/30/18 Allergies Allergy/AdvReac Type Severity Reaction Status Date / Time No Known Allergies Allergy Verified 04/02/19 09:09 Review of Systems ROS Statement: Those systems with pertinent positive or pertinent negative responses have been documented in the HPI. ROS Other: All systems not noted in ROS Statement are negative. Past Medical History Past Medical History: Coronary Artery Disease (CAD), Dementia, Diabetes Mellitus, GERD/Reflux, Hypertension Additional Past Medical History / Comment(s): edema History of Any Multi-Drug Resistant Organisms: None Reported Past Surgical History: Coronary Bypass/CABG Past Psychological History: No Psychological Hx Reported Smoking Status: Former smoker Past Alcohol Use History: None Reported Past Drug Use History: None Reported General Exam - General Exam Comments Initial Comments: GENERAL: Patient is well-developed and well-nourished. Patient is nontoxic and well- hydrated and is in no acute distress. ENT: Neck is soft and supple. No significant lymphadenopathy is noted. Neck has full range of motion without eliciting any pain. Patient has ecchymosis underneath the right eye. EYES: The sclera were anicteric and conjunctiva were pink and moist. Extraocular movements were intact and pupils were equal round and reactive to light. Eyelids were unremarkable. PULMONARY: Unlabored respirations. Good breath sounds bilaterally. No audible rales rhonchi or wheezing was noted. CARDIOVASCULAR: There is a regular rate and rhythm without any murmurs gallops or rubs. ABDOMEN: Soft and nontender with normal bowel sounds. No palpable organomegaly was noted. There is no palpable pulsatile mass. SKIN: Skin is clear with no lesions or rashes and otherwise unremarkable. NEUROLOGIC: Patient is alert and oriented 2. Cranial nerves II through XII are grossly intact. Motor and sensory are also intact. Normal speech, volume and content. Symmetrical smile. MUSCULOSKELETAL: Normal extremities with adequate strength and full range of motion. LYMPHATICS: No significant lymphadenopathy is noted PSYCHIATRIC: Normal psychiatric evaluation. Limitations: no limitations Course Vital Signs 04/02/19 08:54 Temperature 98 F Pulse Rate 76 Respiratory 16 Rate Blood Pressure 171/87 O2 Sat by Pulse 99 Oximetry Medical Decision Making - Medical Decision Making X-ray of the orbits showed no acute fracture Disposition Clinical Impression: Periorbital ecchymosis Disposition: HOME SELF-CARE Instructions (If sedation given, give patient instructions): Ecchymosis (ED) Is patient prescribed a controlled substance at d/c from ED?: No Referrals: Socrates Finch MD [Primary Care Provider] - 1-2 days Time of Disposition: 09:48
[2019-04-02 11:36] VITALS: BP 188/89; PULSE 70; TEMP 98.4
== END 2019-04-02 11:36 | disposition home or self-care (01) ==
LOC: EC 08:52
DX: S00.11XA Contusion of right eyelid and periocular area, initial encounter (principal); E11.9 Type 2 diabetes mellitus without complications; I10 Essential (primary) hypertension; I25.10 Atherosclerotic heart disease of native coronary artery without angina pectoris; Z95.1 Presence of aortocoronary bypass graft; Z87.891 Personal history of nicotine dependence; Z79.4 Long term (current) use of insulin; Z79.82 Long term (current) use of aspirin; W19.XXXA Unspecified fall, initial encounter
CPT/HCPCS: 70200; 99283

== ENCOUNTER 2019-04-29 09:21 | Emergency (ER) | payer MEDICARE ==
--- NOTE | 2019-04-29 09:42 | ED ---
Fall HPI - General Chief Complaint: Fall Stated Complaint: fall Time Seen by Provider: 04/29/19 09:27 Source: patient, EMS, RN notes reviewed Mode of arrival: EMS Limitations: altered mental status, physical limitation - History of Present Illness Initial Comments: This a 78-year-old male presents emergency department via EMS from [facility] for a fall. Patient reportedly fell 2 days ago unwitnessed. Patient does have a history of dementia. Patient has been limping complaint is some pain to the left hip worsening when touched or moved. Patient this point is also complaining of neck pain. Patient cannot recall how he fell. There was felt to be no loss conscious. Patient denies chest pain, shortness breath, nausea and diarrhea constipation. Patient is very unsteady on his feet which is normal. Patient uses a walker to walk. - Related Data Home Medications Medication Instructions Recorded Confirmed metFORMIN HCL 1,000 mg PO BID 07/17/17 04/29/19 Aspirin EC [Ecotrin Low Dose] 81 mg PO HS 01/30/18 04/29/19 Acetaminophen Tab [Tylenol Tab] 325 - 650 mg PO Q8H PRN 04/02/19 04/29/19 Insulin NPH Hum/Reg Insulin Hm 10 unit SQ AC-BRKFST 04/02/19 04/29/19 [humuLIN 70/30 Kwikpen] Insulin NPH Hum/Reg Insulin Hm 20 unit SQ AC-SUPPER 04/02/19 04/29/19 [humuLIN 70/30 Kwikpen] amLODIPine [Norvasc] 10 mg PO DAILY PRN 04/02/19 04/29/19 Previous Rx's Medication Instructions Recorded Ranitidine HCl [Zantac] 150 mg PO BID #60 tab 01/30/18 Allergies Allergy/AdvReac Type Severity Reaction Status Date / Time No Known Allergies Allergy Verified 04/29/19 09:53 Review of Systems ROS Statement: Those systems with pertinent positive or pertinent negative responses have been documented in the HPI. ROS Other: All systems not noted in ROS Statement are negative. Past Medical History Past Medical History: Coronary Artery Disease (CAD), Dementia, Diabetes Mellitus, GERD/Reflux, Hypertension Additional Past Medical History / Comment(s): edema History of Any Multi-Drug Resistant Organisms: None Reported Past Surgical History: Coronary Bypass/CABG Past Psychological History: No Psychological Hx Reported Smoking Status: Former smoker Past Alcohol Use History: None Reported Past Drug Use History: None Reported General Exam Limitations: altered mental status (Dementia), physical limitation General appearance: alert, in no apparent distress Head exam: Present: atraumatic, normocephalic, normal inspection Eye exam: Present: normal appearance, PERRL, EOMI. Absent: scleral icterus, conjunctival injection, periorbital swelling ENT exam: Present: normal exam, normal oropharynx, mucous membranes moist, TM's normal bilaterally Neck exam: Present: normal inspection, full ROM. Absent: tenderness, meningismus, lymphadenopathy Respiratory exam: Present: normal lung sounds bilaterally. Absent: respiratory distress, wheezes, rales, rhonchi, stridor Cardiovascular Exam: Present: regular rate, normal rhythm, normal heart sounds. Absent: systolic murmur, diastolic murmur, rubs, gallop, clicks Extremities exam: Present: other (Left hip tenderness with palpation, no obvious point though there is some slight shortening, pain with range of motion) Neurological exam: Present: alert, CN II-XII intact, reflexes normal. Absent: oriented X3, motor sensory deficit Skin exam: Present: warm, dry, intact, normal color. Absent: rash Course Vital Signs 04/29/19 04/29/19 09:23 10:34 Temperature 98.8 F Pulse Rate 92 85 Respiratory 17 17 Rate Blood Pressure 181/99 149/75 O2 Sat by Pulse 96 96 Oximetry Medical Decision Making - Medical Decision Making 78-year-old male presented emergency Department for a fall. X-ray was obtained of the hip which is negative for fracture, CT was obtained after which is negative for acute fracture does show chronic changes. CT of the head neck or obtained secondary to fall and history of dementia and which were negative. Patient will be discharged return parameters discussed. Disposition Clinical Impression: Fall, Contusion of left hip Disposition: HOME SELF-CARE Condition: Stable Instructions (If sedation given, give patient instructions): Hip Contusion (ED) Additional Instructions: Please return to the Emergency Department if symptoms worsen or any other concerns. Is patient prescribed a controlled substance at d/c from ED?: No Referrals: Socrates Finch MD [Primary Care Provider] - 1-2 days Pete Urrutia MD [STAFF PHYSICIAN] - 1-2 days Time of Disposition: 11:12
--- NOTE | 2019-04-29 10:01 | CT ---
EXAMINATION TYPE: CT brain ankit scott DATE OF EXAM: 04/29/2019 COMPARISON: 02/19/2019 HISTORY: pain/fall/dementia CT DLP: 1169.[address] of the brain was performed. The ventricles, basal cisterns and sulci overlying the cerebral convexities demonstrate moderate enla rgement. There is no evidence for intracranial hemorrhage or sulcal effacement. There is decreased attenuatio n about the periventricular white matter and deep white matter of both cerebral hemispheres, compatib le with chronic small vessel ischemia. No mass effects are seen. If symptoms persist consider MRI. Osseous calvarium is intact. IMPRESSION: 1. Age related atrophic and chronic small vessel ischemic change without acute intracranial process seen at this time. CT Cervical Spine: Unenhanced CT of the cervical spine was performed with bone and soft tissue window settings submitted . Coronal and sagittal reconstruction is obtained. There is normal alignment and prevertebral soft tissues. No evidence for acute cervical fracture . Scattered degenerative disc disease and spondylosis. Biapical scarring. IMPRESSION: 1. No evidence for acute fracture or subluxation of the cervical spine.
--- NOTE | 2019-04-29 10:27 | XR ---
EXAMINATION TYPE: XR Hip LT and AP Pelvis DATE OF EXAM: 04/29/2019 COMPARISON: NONE HISTORY: 78-year-old male with pain TECHNIQUE: AP view pelvis and 2 views left hip FINDINGS: There is synovial calcification at both hips. There is external rotation at the bilateral hips limiti ng visualization of the lower femoral neck regions on both sides. No displaced fracture seen. SI join ts and pubic symphysis appear intact. IMPRESSION: Some limitations due to patient's positioning obscuring the lower femoral neck regions. No displaced fracture seen on either side. Bilateral hips synovial calcification may be idiopathic. It may also be seen in the setting of CPPD.
--- NOTE | 2019-04-29 11:03 | CT ---
EXAMINATION TYPE: CT hip LT wo con DATE OF EXAM: 04/29/2019 COMPARISON: X-ray 759 HISTORY: Pain, unable to ambulate. CT DLP: 379.4 mGycm Automated exposure control for dose reduction was used. FINDINGS: Arthropathy of the hips is seen with the calcification along the lateral margin of the acetabulum can also be associated with chronic acetabular labral tear. Synovial calcifications can be associated wi th CPPD or BMD of pathologic. Fat-containing bilateral inguinal hernia. Vascular calcifications noted. Prostate appears prominent. Degenerative change of the lower lumbar spine with disc bulging L4-5 and L5-S1. IMPRESSION: ARTHROPATHY WITH NO ACUTE FRACTURE. DISC BULGING L4-5 AND L5-S1. CORRELATE WITH MRI CLINICALLY WARRANTED. SUBCHONDRAL LUCENCY INVOLVING THE FEMORAL HEAD CAN BE ASSOCIATED WITH OSTEONECROSIS. FOLLOW-UP MRI RE COMMENDED.
[2019-04-29 11:48] VITALS: PULSE 86
[2019-04-29] MEDS ORDERED: traMADol 50 MG TAB PO STA (12:13)
[2019-04-29 13:36] VITALS: BP 152/78; RESP 16; TEMP 98.2
== END 2019-04-29 13:35 | disposition home or self-care (01) ==
LOC: EC 09:21
DX: S70.02XA Contusion of left hip, initial encounter (principal); Z87.891 Personal history of nicotine dependence; I25.10 Atherosclerotic heart disease of native coronary artery without angina pectoris; E11.9 Type 2 diabetes mellitus without complications; Z79.82 Long term (current) use of aspirin; Z79.4 Long term (current) use of insulin; Z95.1 Presence of aortocoronary bypass graft; W19.XXXA Unspecified fall, initial encounter; Y92.89 Other specified places as the place of occurrence of the external cause
CPT/HCPCS: 70450; 72125; 73502; 99284

== ENCOUNTER 2019-06-26 08:40 | Inpatient (IN) | payer MEDICARE ==
--- NOTE | 2019-06-26 09:24 | ED ---
General Adult HPI - General Chief complaint: Extremity Injury, Lower Stated complaint: Leg Pain Time Seen by Provider: 06/26/19 08:51 Source: patient, RN notes reviewed Mode of arrival: EMS Limitations: altered mental status, physical limitation - History of Present Illness Initial comments: Patient is a pleasant 78-year-old male presenting to the emergency department with reports of left leg pain. Patient denies left leg pain and states nothing bothersome. Patient is unclear why he is here. Patient denies any injury. Patient denies any pain at all. No history provided from transfer. No family present. Patient is a poor historian overall. - Related Data Home Medications Medication Instructions Recorded Confirmed metFORMIN HCL 1,000 mg PO BID 07/17/17 06/26/19 Aspirin EC [Ecotrin Low Dose] 81 mg PO HS 01/30/18 06/26/19 Acetaminophen Tab [Tylenol Tab] 325 - 650 mg PO Q8H PRN 04/02/19 06/26/19 Insulin NPH Hum/Reg Insulin Hm 10 unit SQ AC-BRKFST 04/02/19 06/26/19 [humuLIN 70/30 Kwikpen] Insulin NPH Hum/Reg Insulin Hm 20 unit SQ AC-SUPPER 04/02/19 06/26/19 [humuLIN 70/30 Kwikpen] amLODIPine [Norvasc] 10 mg PO DAILY PRN 04/02/19 06/26/19 Cyanocobalamin (Vitamin B-12) 1,000 mcg PO DAILY 06/26/19 06/26/19 [Vitamin B-12] Previous Rx's Medication Instructions Recorded Ranitidine HCl [Zantac] 150 mg PO BID #60 tab 01/30/18 Ibuprofen [Motrin] 600 mg PO Q8HR PRN #20 tab 04/29/19 Allergies Allergy/AdvReac Type Severity Reaction Status Date / Time No Known Allergies Allergy Verified 06/26/19 09:03 Review of Systems ROS Statement: Those systems with pertinent positive or pertinent negative responses have been documented in the HPI. ROS Other: All systems not noted in ROS Statement are negative. Constitutional: Denies: fever Eyes: Denies: eye pain ENT: Denies: ear pain Respiratory: Denies: cough Cardiovascular: Denies: chest pain Endocrine: Denies: fatigue Gastrointestinal: Denies: abdominal pain Genitourinary: Denies: dysuria Musculoskeletal: Denies: back pain Skin: Denies: rash Neurological: Denies: weakness Past Medical History Past Medical History: Coronary Artery Disease (CAD), Dementia, Diabetes Mellitu s, GERD/Reflux, Hypertension Additional Past Medical History / Comment(s): edema History of Any Multi-Drug Resistant Organisms: None Reported Past Surgical History: Coronary Bypass/CABG Past Psychological History: No Psychological Hx Reported Smoking Status: Former smoker Past Alcohol Use History: None Reported Past Drug Use History: None Reported General Exam Limitations: no limitations General appearance: alert, in no apparent distress Head exam: Present: atraumatic Eye exam: Present: normal appearance, PERRL, EOMI ENT exam: Present: normal oropharynx Neck exam: Present: normal inspection Respiratory exam: Present: normal lung sounds bilaterally. Absent: chest wall tenderness Cardiovascular Exam: Present: regular rate, normal rhythm Expanded Peripheral pulses: 2+: Dorsalis Pedis (R), Dorsalis Pedis (L) GI/Abdominal exam: Present: soft. Absent: tenderness Extremities exam: Present: normal inspection, full ROM. Absent: tenderness, calf tenderness Neurological exam: Present: alert, altered, abnormal gait (Patient is unable to stand up and hold his own weight. No discomfort during attempt.) Expanded Neurological exam: Present: protecting the airway Patient oriented to: Present: person. Absent: place, time Cranial nerves: EOM's Intact: Normal Motor strength exam: RUE: 5, LUE: 5, RLE: 5, LLE: 5 Eye Response: (4) open spontaneously Motor Response: (6) obeys commands Verbal Response: (4) confused conversation Psychiatric exam: Present: normal affect, normal mood Skin exam: Present: normal color Course Vital Signs 06/26/19 06/26/19 06/26/19 08:41 10:30 11:00 Temperature 99.1 F Pulse Rate 81 75 73 Respiratory 18 17 13 Rate Blood Pressure 149/78 134/76 155/73 O2 Sat by Pulse 99 98 97 Oximetry 06/26/19 06/26/19 11:30 12:00 Temperature Pulse Rate 74 80 Respiratory 15 18 Rate Blood Pressure 130/68 125/69 O2 Sat by Pulse 100 99 Oximetry EKG Findings - EKG Comments: EKG Findings:: Normal sinus rhythm 76. IN 168. QRS 68. QT 380. QTC 427. Normal axis. Normal QRS. No acute ST change. Medical Decision Making - Medical Decision Making Patient reevaluated and resting comfortably in bed. Patient and family updated on results. Family adds that patient has had difficulty walking progressive over a few months now. She states patient is unable to transfer today and previously has been able to. They did see a neurologist at one point however no diagnosis was made. Patient has not had a lumbar puncture. No addition family adds that patient is a little bit more confused than normal today and a little bit less talkative. Case was discussed in detail with Dr. Zambrano, covering for Dr. Finch will admit. Consult will be placed with neurology will be available in the morning. Computed tomography scan of the lumbar spinal also be ordered. - Lab Data Result diagrams: 06/26/19 10:00 06/26/19 10:00 Lab Results 06/26/19 06/26/19 06/26/19 Range/Units 10:00 10:00 10:00 WBC 8.9 (3.8-10.6) k/uL RBC 4.41 (4.30-5.90) m/uL Hgb 13.4 (13.0-17.5) gm/dL Hct 40.0 (39.0-53.0) % MCV 90.7 (80.0-100.0) fL MCH 30.3 (25.0-35.0) pg MCHC 33.4 (31.0-37.0) g/dL RDW 13.6 (11.5-15.5) % Plt Count 222 (150-450) k/uL Neutrophils % 66 % Lymphocytes % 16 % Monocytes % 10 % Eosinophils % 5 % Basophils % 0 % Neutrophils # 5.9 (1.3-7.7) k/uL Lymphocytes # 1.4 (1.0-4.8) k/uL Monocytes # 0.9 (0-1.0) k/uL Eosinophils # 0.5 (0-0.7) k/uL Basophils # 0.0 (0-0.2) k/uL PT (9.0-12.0) sec INR (<1.2) APTT (22.0-30.0) sec Sodium 135 L (137-145) mmol/L Potassium 4.7 (3.5-5.1) mmol/L Chloride 101 (98-107) mmol/L Carbon Dioxide 20 L (22-30) mmol/L Anion Gap 14 mmol/L BUN 27 H (9-20) mg/dL Creatinine 1.25 (0.66-1.25) mg/dL Est GFR (CKD-EPI)AfAm 63 (>60 ml/min/1.73 sqM) Est GFR (CKD-EPI)NonAf 55 (>60 ml/min/1.73 sqM) Glucose 240 H (74-99) mg/dL Plasma Lactic Acid Armin 3.5 H* (0.7-2.0) mmol/L Calcium 9.3 (8.4-10.2) mg/dL Phosphorus 3.7 (2.5-4.5) mg/dL Magnesium 1.4 L (1.6-2.3) mg/dL Total Bilirubin 0.8 (0.2-1.3) mg/dL AST 28 (17-59) U/L ALT 12 L (21-72) U/L Alkaline Phosphatase 69 (38-126) U/L Troponin I (0.000-0.034) ng/mL Total Protein 6.8 (6.3-8.2) g/dL Albumin 3.7 (3.5-5.0) g/dL TSH Cancelled Free T4 Cancelled Free T3 pg/mL Cancelled Urine Color Urine Appearance (Clear) Urine pH (5.0-8.0) Ur Specific [place] (1.001-1.035) Urine Protein (Negative) Urine Glucose (UA) (Negative) Urine Ketones (Negative) Urine Blood (Negative) Urine Nitrite (Negative) Urine Bilirubin (Negative) Urine Urobilinogen (<2.0) mg/dL Ur Leukocyte Esterase (Negative) 06/26/19 06/26/19 06/26/19 Range/Units 10:00 10:00 11:16 WBC (3.8-10.6) k/uL RBC (4.30-5.90) m/uL Hgb (13.0-17.5) gm/dL Hct (39.0-53.0) % MCV (80.0-100.0) fL MCH (25.0-35.0) pg MCHC (31.0-37.0) g/dL RDW (11.5-15.5) % Plt Count (150-450) k/uL Neutrophils % % Lymphocytes % % Monocytes % % Eosinophils % % Basophils % % Neutrophils # (1.3-7.7) k/uL Lymphocytes # (1.0-4.8) k/uL Monocytes # (0-1.0) k/uL Eosinophils # (0-0.7) k/uL Basophils # (0-0.2) k/uL PT 9.9 (9.0-12.0) sec INR 0.9 (<1.2) APTT 25.0 (22.0-30.0) sec Sodium (137-145) mmol/L Potassium (3.5-5.1) mmol/L Chloride (98-107) mmol/L Carbon Dioxide (22-30) mmol/L Anion Gap mmol/L BUN (9-20) mg/dL Creatinine (0.66-1.25) mg/dL Est GFR (CKD-EPI)AfAm (>60 ml/min/1.73 sqM) Est GFR (CKD-EPI)NonAf (>60 ml/min/1.73 sqM) Glucose (74-99) mg/dL Plasma Lactic Acid Armin (0.7-2.0) mmol/L Calcium (8.4-10.2) mg/dL Phosphorus (2.5-4.5) mg/dL Magnesium (1.6-2.3) mg/dL Total Bilirubin (0.2-1.3) mg/dL AST (17-59) U/L ALT (21-72) U/L Alkaline Phosphatase (38-126) U/L Troponin I 0.018 (0.000-0.034) ng/mL Total Protein (6.3-8.2) g/dL Albumin (3.5-5.0) g/dL TSH 2.730 Free T4 1.15 Free T3 pg/mL 2.9 Urine Color Urine Appearance (Clear) Urine pH (5.0-8.0) Ur Specific [place] (1.001-1.035) Urine Protein (Negative) Urine Glucose (UA) (Negative) Urine Ketones (Negative) Urine Blood (Negative) Urine Nitrite (Negative) Urine Bilirubin (Negative) Urine Urobilinogen (<2.0) mg/dL Ur Leukocyte Esterase (Negative) 06/26/19 Range/Units 11:16 WBC (3.8-10.6) k/uL RBC (4.30-5.90) m/uL Hgb (13.0-17.5) gm/dL Hct (39.0-53.0) % MCV (80.0-100.0) fL MCH (25.0-35.0) pg MCHC (31.0-37.0) g/dL RDW (11.5-15.5) % Plt Count (150-450) k/uL Neutrophils % % Lymphocytes % % Monocytes % % Eosinophils % % Basophils % % Neutrophils # (1.3-7.7) k/uL Lymphocytes # (1.0-4.8) k/uL Monocytes # (0-1.0) k/uL Eosinophils # (0-0.7) k/uL Basophils # (0-0.2) k/uL PT (9.0-12.0) sec INR (<1.2) APTT (22.0-30.0) sec Sodium (137-145) mmol/L Potassium (3.5-5.1) mmol/L Chloride (98-107) mmol/L Carbon Dioxide (22-30) mmol/L Anion Gap mmol/L BUN (9-20) mg/dL Creatinine (0.66-1.25) mg/dL Est GFR (CKD-EPI)AfAm (>60 ml/min/1.73 sqM) Est GFR (CKD-EPI)NonAf (>60 ml/min/1.73 sqM) Glucose (74-99) mg/dL Plasma Lactic Acid Armin (0.7-2.0) mmol/L Calcium (8.4-10.2) mg/dL Phosphorus (2.5-4.5) mg/dL Magnesium (1.6-2.3) mg/dL Total Bilirubin (0.2-1.3) mg/dL AST (17-59) U/L ALT (21-72) U/L Alkaline Phosphatase (38-126) U/L Troponin I (0.000-0.034) ng/mL Total Protein (6.3-8.2) g/dL Albumin (3.5-5.0) g/dL TSH Free T4 Free T3 pg/mL Urine Color Light Yellow Urine Appearance Clear (Clear) Urine pH 5.0 (5.0-8.0) Ur Specific [place] 1.005 (1.001-1.035) Urine Protein Negative (Negative) Urine Glucose (UA) Trace H (Negative) Urine Ketones Negative (Negative) Urine Blood Negative (Negative) Urine Nitrite Negative (Negative) Urine Bilirubin Negative (Negative) Urine Urobilinogen <2.0 (<2.0) mg/dL Ur Leukocyte Esterase Negative (Negative) - Radiology Data Radiology results: report reviewed (Computed tomography scan of the brain shows atrophy. No acute process.), image reviewed (Pelvis x-ray shows no acute process. Chest x-ray shows no acute process) Disposition Clinical Impression: Weakness, Ataxia Disposition: ADMITTED IP TO THIS HOSP Is patient prescribed a controlled substance at d/c from ED?: No Referrals: Socrates Finch MD [Primary Care Provider] - 1-2 days Decision Time: 13:06
[2019-06-26 10:13] LABS: Basophils % (A) 0 %; Eosinophils # (A) 0.5 k/uL (0-0.7); Eosinophils % (A) 5 %; HGB 13.4 gm/dL (13.0-17.5); Lymphocytes # (A) 1.4 k/uL (1.0-4.8); Lymphocytes % (A) 16 %; MCH 30.3 pg (25.0-35.0); MCHC 33.4 g/dL (31.0-37.0); MCV 90.7 fL (80.0-100.0); Mean Platelet Volume 7.9; Monocytes # (A) 0.9 k/uL (0-1.0); Monocytes % (A) 10 %; Neutrophils # (A) 5.9 k/uL (1.3-7.7); Neutrophils % (A) 66 %; Platelet Count 222 k/uL (150-450); RBC 4.41 m/uL (4.30-5.90); RDW 13.6 % (11.5-15.5); WBC 8.9 k/uL (3.8-10.6)
[2019-06-26 10:24] LABS: INR 0.9 (<1.2); Prothrombin Time 9.9 sec (9.0-12.0)
[2019-06-26 10:31] LABS: Albumin 3.7 g/dL (3.5-5.0); Calcium 9.3 mg/dL (8.4-10.2); Magnesium 1.4 mg/dL (1.6-2.3); Phosphorus 3.7 mg/dL (2.5-4.5); Potassium 4.7 mmol/L (3.5-5.1); Total Bilirubin 0.8 mg/dL (0.2-1.3); Total Protein 6.8 g/dL (6.3-8.2)
--- NOTE | 2019-06-26 10:42 | CT ---
EXAMINATION TYPE: CT brain wo con DATE OF EXAM: 06/26/2019 COMPARISON: CT brain 04/29/2019 HISTORY: Weakness TECHNIQUE: Axial CT images of the head without contrast. Bone windows and sagittal and coronal reform ats were reviewed. CT DLP: 1104.4 mGycm Automated exposure control for dose reduction was used. FINDINGS: No acute intracranial hemorrhage. Confluent periventricular and deep cortical white matter areas of l ow attenuation, likely representing sequela of chronic microangiopathy. No acute loss of vickers-white m atter differentiation to suggest large territorial infarction. Mild cerebral volume loss with appropriate size and morphology of the ventricular system. No extra-ax ial fluid collections or midline shift of structures. Patent basal cisterns. No depressed or displaced calvarial fracture. Intracranial vascular calcifications. Visualized parana luacs sinuses and temporal bone structures are well aerated. The imaged orbits and skull base are unrem arkable. IMPRESSION: 1. No acute intracranial abnormality. 2. Senescent changes including cerebral volume loss and sequale of chronic microangiopathy. 3. If there is sufficient clinical concern for acute ischemia, further evaluation with brain MRI is r ecommended.
[2019-06-26] MEDS ORDERED: SODIUM CHLORIDE 0.9% 500 ML 500 ML IV STA (10:57)
[2019-06-26] MEDS ORDERED: SODIUM CHLORIDE 0.9% 1,000 ML IV STA (10:57)
--- NOTE | 2019-06-26 11:04 | XR ---
EXAMINATION TYPE: XR pelvis AP view DATE OF EXAM: 06/26/2019 10:28 AM CLINICAL HISTORY: Left leg pain TECHNIQUE: One view pelvis. COMPARISON: None. FINDINGS: No fracture. Both hips are located. Sacroiliac joints and pubic symphysis are intact. Chondrocalcinos is noted about both hips. Vascular calcifications and surgical clips in the medial right thigh soft t issues. IMPRESSION: No fracture.
--- NOTE | 2019-06-26 11:07 | XR ---
EXAMINATION TYPE: XR chest 2V DATE OF EXAM: 06/26/2019 COMPARISON: Chest radiograph 02/19/2019 HISTORY: Left leg pain TECHNIQUE: Frontal and lateral views of the chest are obtained. FINDINGS: Cardiac mediastinal silhouette is within normal limits of size. Aortic vascular calcifications. CABG changes noted. Epicardial leads project over the mediastinum. Clear lungs. No pleural effusion or pne umothorax. Osseous structures are demineralized. IMPRESSION: No acute cardiopulmonary process.
[2019-06-26 11:45] LABS: Appearance,Urine Clear (Clear); Bilirubin,Urine Negative (Negative); Blood,Urine Negative (Negative); Color,Urine Light Yellow; Glucose,Urine (UA) Trace (Negative); Ketones,Urine Negative (Negative); Leukocyte Esterase,Urine Negative (Negative); Nitrite,Urine Negative (Negative); Protein,Urine Negative (Negative); Specific Gravity,Urine 1.005 (1.001-1.035); Urobilinogen,Urine <2.0 mg/dL (<2.0)
[2019-06-26 12:08] LABS: T4, Free (Free Thyroxine) 1.15 ng/dL (0.78-2.19)
[2019-06-26] MEDS ORDERED: MAGNESIUM OXIDE 400 MG TAB PO STA (12:31)
[2019-06-26] MEDS ORDERED: NALOXONE 0.4 MG/ML 1 ML VIAL IV PRN (13:07)
[2019-06-26] MEDS: SODIUM CHLORIDE 0.9% 1,000 ML IV SCH ×2 (13:50→20:11)
--- NOTE | 2019-06-26 14:18 | CT ---
EXAMINATION TYPE: CT lumbar spine wo con DATE OF EXAM: 06/26/2019 1:48 PM COMPARISON: None HISTORY: Leg weakness CT DLP: 616.5 mGycm Automated exposure control for dose reduction was used. FINDINGS: There are 5 lumbar-type vertebral bodies. Mild convex left curvature. No fracture. Vertebral body hei ghts are maintained. Disc calcifications are present however heights are grossly maintained. There ar e calcifications of the interspinous ligaments as well. Multiple gallstones are noted. Atherosclerotic calcifications of the aorta without ectasia or aneurys m. L1-L2: Small disc bulge without significant mass effect on the thecal sac. This does contribute to mi ld bilateral neural foraminal stenosis. L2-L3: Small disc bulge without significant mass effect on the thecal sac however this does contribut e to mild bilateral neural foraminal stenosis. L3-L4: Small disc bulge without significant mass effect on the thecal sac. This does contribute to mi ld bilateral neural foraminal stenosis. L4-L5: Disc bulge impresses upon the ventral thecal sac. This finding, in conjunction with facet arth ropathy and ligamentum flavum thickening contribute to mild to moderate spinal canal stenosis and at least moderate bilateral neural foraminal stenosis. Left greater than right). L5-S1: Disc bulge without significant mass effect on the thecal sac. This finding, in conjunction wit h facet arthropathy and ligamentum flavum hypertrophy contribute to mild to moderate bilateral neurof oraminal stenosis. IMPRESSION: 1. No fracture. 2. 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
[2019-06-26] MEDS ORDERED: IBUPROFEN 600 MG TAB PO PRN (15:53)
[2019-06-26] MEDS ORDERED: ACETAMINOPHEN TAB 325 MG TAB PO PRN (15:53)
[2019-06-26 17:18] LABS: Glucose,Whole Blood 224 mg/dL (75-99)
[2019-06-26] MEDS ORDERED: INSULN ASP PRT/INSULIN ASPART 100 UNIT/ML 10 ML VIAL SQ SCH (17:30)
[2019-06-26] MEDS: metFORMIN 500 MG TAB PO SCH (17:42)
[2019-06-26] MEDS: ASPIRIN 81 MG PO SCH (20:08)
[2019-06-26 20:47] LABS: Glucose,Whole Blood 149 mg/dL (75-99)
[2019-06-27 07:17] LABS: Glucose,Whole Blood 159 mg/dL (75-99)
[2019-06-27] MEDS ORDERED: INSULN ASP PRT/INSULIN ASPART 100 UNIT/ML 10 ML VIAL SQ SCH (07:30)
[2019-06-27] MEDS: CYANOCOBALAMIN 500 MCG TAB PO SCH (07:53)
[2019-06-27] MEDS: FAMOTIDINE 20 MG TAB PO SCH (07:53)
[2019-06-27] MEDS: metFORMIN 500 MG TAB PO SCH ×2 (07:53→17:23)
[2019-06-27] MEDS: amLODIPine 10 MG TAB PO PRN (07:58)
[2019-06-27 12:13] LABS: Glucose,Whole Blood 276 mg/dL (75-99)
--- NOTE | 2019-06-27 15:05 | P.CNNES ---
History of Present Illness Consult date: 06/27/19 Reason for Consult: Ataxia, leg weakness Chief complaint: Ataxia, leg weakness History of Present Illness: REFERRING PHYSICIAN: Dr. Moncho Katz HISTORY OF PRESENT ILLNESS: Thank you for allowing me to evaluate is Ms. Jackie Wang. Mr. Wang a 78-year-old man with past medical history of coronary artery disease, dementia, diabetes, GERD, hypertension, edema, consulted neurology for ataxia and lower extremity weakness. Unable to obtain history from patient due to his significant dementia. No family at bedside. Per emergency room notes, patient is from a care facility. Per family, patient has had difficulty walking progressively over a few months. Patient has been wheelchair-bound but usually able to transfer himself.. Further note, patient was seen by neurologist but no diagnosis was made. Family also stated that he is a little bit more confused compared to previously, and less talkative. Per RN at bedside, patient was brought to the hospital for discharge recommendation. Patient came from a longterm facility, with family wanting to take him to an adult foster care facility. Family also denied any physical therapy or therapy for discharge recommendations. PAST MEDICAL HISTORY: Coronary artery disease, dementia, diabetes, GERD, hypertension, edema PAST SURGICAL HISTORY: Coronary bypass HOME MEDICATIONS: Metformin 1000 mg twice a day, aspirin 81 mg daily, ranitidine, amlodipine 10 mg daily, Tylenol, insulin, vitamin B12 ALLERGIES: NO KNOWN DRUG ALLERGIES SOCIAL HISTORY: Former smoker FAMILY HISTORY: Unable to obtain REVIEW OF SYSTEMS: The 14 systems are reviewed and no additional points are identified compared to the review of systems documented history and physical PHYSICAL EXAMINATION: VITAL SIGNS: Temperature 98.2 pulse rate 82 respiratory rate 20 blood pressure 173/97 O2 saturation 98% on room air GEN.: NAD, grumpy, not wanting to answer any questions HEENT: NCAT, sclera without icterus SKIN AND EXTREMITIES: Warm to touch, no edema NEURO: MENTAL STATUS: Patient alert and oriented to self only. Patient states that he is at his "living quarters." Speech fluent but patient not wanting to answer most questions, mostly ones that he does not know the answers to. CRANIAL NERVES II THROUGH XII: II: Pupils are equal and reactive to light symmetrically. Visual atkins grossly intact. III, IV, : No ptosis. Extraocular movements grossly full. V: Facial sensation intact from V1-3. VII. No clear facial asymmetry. VIII: Hearing intact to finger rub bilaterally. XII: Tongue midline without fasciculation or atrophy. MOTOR: Normal bulk/tone. Upper extremities stronger than lower extremities. No focality. Able to move lower extremities antigravity bilaterally. SENSORY: Intact to light touch, temperature grossly 4 extremities. REFLEXES: 2+ throughout. Toes are very sensitive to light touch. COORDINATION/GAIT: Unable to examine due to patient cooperation DIAGNOSTIC TESTING: LABORATORY: 06/26/19: WBC 8.9 hemoglobin 13.4 platelets 222 Glucose 159 urinalysis negative IMAGING: CT head without contrast 06/26/2019: No acute intracranial abnormality. Cerebral volume loss and sequelae of chronic microangiopathy. Lumbar CT from 06/26/2019: No fracture. Multilevel disc degeneration with associated osteoarthritic change, greatest degree at L4 to L5. ASSESSMENT/RECOMMENDATIONS: Mr. Wang a 78-year-old man with past medical history of coronary artery disease, dementia, diabetes, GERD, hypertension, edema, consulted neurology for ataxia and lower extremity weakness. Very difficult to assess patient due to his history of dementia and lack of cooperation. Patient follows most commands, but having difficulty answering questions, at which time patient shows extreme grumpiness. Neurology was consulted for ataxia emotionally weakness. On exam, no significant focal deficit noted. RN stated that she will be placing order for physical therapy as patient will need to be completely bedbound before the patient is seen by physical therapy. It is difficult for me to involve the patient all alone in terms of patient's ability to walk due to patient's lack of cooperation. We'll assess patient again tomorrow after patient is seen by physical therapy to better gauge any focal neurologic deficit that could've been noted during therapy. Neurology will continue to follow. Past Medical History Past Medical History: Coronary Artery Disease (CAD), Dementia, Diabetes Mellitus, GERD/Reflux, Hypertension Additional Past Medical History / Comment(s): edema History of Any Multi-Drug Resistant Organisms: None Reported Past Surgical History: Coronary Bypass/CABG Past Psychological History: No Psychological Hx Reported Smoking Status: Former smoker Past Alcohol Use History: None Reported Past Drug Use History: None Reported Medications and Allergies Home Medications Medication Instructions Recorded Confirmed Type metFORMIN HCL 1,000 mg PO BID 07/17/17 06/26/19 History Aspirin EC [Ecotrin Low Dose] 81 mg PO HS 01/30/18 06/26/19 History Ranitidine HCl [Zantac] 150 mg PO BID #60 tab 01/30/18 06/26/19 Rx Acetaminophen Tab [Tylenol Tab] 325 - 650 mg PO Q8H PRN 04/02/19 06/26/19 History Insulin NPH Hum/Reg Insulin Hm 10 unit SQ AC-BRKFST 04/02/19 06/26/19 History [humuLIN 70/30 Kwikpen] Insulin NPH Hum/Reg Insulin Hm 20 unit SQ AC-SUPPER 04/02/19 06/26/19 History [humuLIN 70/30 Kwikpen] amLODIPine [Norvasc] 10 mg PO DAILY PRN 04/02/19 06/26/19 History Ibuprofen [Motrin] 600 mg PO Q8HR PRN #20 tab 04/29/19 06/26/19 Rx Cyanocobalamin (Vitamin B-12) 1,000 mcg PO DAILY 06/26/19 06/26/19 History [Vitamin B-12] Allergies Allergy/AdvReac Type Severity Reaction Status Date / Time No Known Allergies Allergy Verified 06/26/19 09:03 Physical Examination - Vital Signs Vital Signs: Vital Signs Temp Pulse Pulse Resp BP BP BP 06/27/19 06:00 98.2 F 82 20 173/97 06/26/19 22:35 98 F 87 20 154/79 06/26/19 14:30 98.0 F 74 16 162/82 06/26/19 13:59 98.9 F 79 16 155/60 06/26/19 12:30 68 18 125/73 06/26/19 12:00 80 18 125/69 06/26/19 11:30 74 15 130/68 Pulse Ox 06/27/19 06:00 98 06/26/19 22:35 97 06/26/19 14:30 99 06/26/19 13:59 98 06/26/19 12:30 98 06/26/19 12:00 99 06/26/19 11:30 100 Intake and Output 06/26/19 06/27/19 06/27/19 22:59 06:59 14:59 Intake Total 1040 320 Balance 1040 320 Intake: Oral 1040 320 Other: # Voids 1 Results - Laboratory Findings CBC and BMP: 06/26/19 10:00 06/26/19 10:00 Abnormal Lab Findings: Abnormal Labs 06/26/19 06/26/19 06/26/19 10:00 10:00 11:16 Sodium 135 L Carbon Dioxide 20 L BUN 27 H Glucose 240 H POC Glucose (mg/dL) Plasma Lactic Acid Armin 3.5 H* Magnesium 1.4 L ALT 12 L Urine Glucose (UA) Trace H 06/26/19 06/26/19 06/27/19 17:12 20:39 07:07 Sodium Carbon Dioxide BUN Glucose POC Glucose (mg/dL) 224 H 149 H 159 H Plasma Lactic Acid Armin Magnesium ALT Urine Glucose (UA)
[2019-06-27] MEDS ORDERED: MAGNESIUM SULFATE-D5W PMX 1 GM in DEXTROSE/WATER 1 100ML.BAG IVPB ONE (15:30)
[2019-06-27] MEDS: SODIUM CHLORIDE 0.9% 1,000 ML IV SCH (15:41)
[2019-06-27 17:19] LABS: Glucose,Whole Blood 287 mg/dL (75-99)
[2019-06-27] MEDS: INSULN ASP PRT/INSULIN ASPART 100 UNIT/ML 10 ML VIAL SQ SCH (17:23)
--- NOTE | 2019-06-27 17:56 | P.HPIM ---
History of Present Illness H&P Date: 06/27/19 78 years old male patient of Dr. Howard with past medical history of coronary artery disease status post CABG, history of dementia, history of diabetes, history of GERD, history of hypertension comes in with the gradually worsening weakness involving his lower extremity. Daughter at bedside explains that patient's symptoms started in December where he lost weakness in his right lower extremity with foot drop and patient was noted to be dragging his leg along the way. He was also noted to fall on his right side. Patient is to use a walker and has lost weakness in bilateral lower extremity is currently wheelchair- bound. He was able to transfer himself in and out of bed but is not able to do so for the past few days. The daughter brought the patient to the hospital to help with rehab and physical therapy to help regain power in his lower extremity. On evaluation patient is unable to provide any history because of his dementia but he does follow commands appropriately is noted to be weaker on his right side as compared to his left side. No history of facial droop, seizures, speech or swallowing difficulty given. Patient has never had a stroke workup. Neurology is consulted for evaluation of stroke. Carotid ultrasound and echocardiogram ordered. Computed tomography scan was negative for any acute ischemia but no changes of cerebral volume loss seen due to chronic micro-angiop athy. Neurology consult placed. IV fluids continued at 75 mL per hour due to concern of dehydration on on BMP. Glucose was slightly elevated. Continue patient on NovoLog and metformin Review of Systems Review of systems could not be obtained Past Medical History Past Medical History: Coronary Artery Disease (CAD), Dementia, Diabetes Mellitus, GERD/Reflux, Hypertension Additional Past Medical History / Comment(s): edema History of Any Multi-Drug Resistant Organisms: None Reported Past Surgical History: Coronary Bypass/CABG Past Psychological History: No Psychological Hx Reported Smoking Status: Former smoker Past Alcohol Use History: None Reported Past Drug Use History: None Reported Medications and Allergies Home Medications Medication Instructions Recorded Confirmed Type metFORMIN HCL 1,000 mg PO BID 07/17/17 06/26/19 History Aspirin EC [Ecotrin Low Dose] 81 mg PO HS 01/30/18 06/26/19 History Ranitidine HCl [Zantac] 150 mg PO BID #60 tab 01/30/18 06/26/19 Rx Acetaminophen Tab [Tylenol Tab] 325 - 650 mg PO Q8H PRN 04/02/19 06/26/19 History Insulin NPH Hum/Reg Insulin Hm 10 unit SQ AC-BRKFST 04/02/19 06/26/19 History [humuLIN 70/30 Kwikpen] Insulin NPH Hum/Reg Insulin Hm 20 unit SQ AC-SUPPER 04/02/19 06/26/19 History [humuLIN 70/30 Kwikpen] amLODIPine [Norvasc] 10 mg PO DAILY PRN 04/02/19 06/26/19 History Ibuprofen [Motrin] 600 mg PO Q8HR PRN #20 tab 04/29/19 06/26/19 Rx Cyanocobalamin (Vitamin B-12) 1,000 mcg PO DAILY 06/26/19 06/26/19 History [Vitamin B-12] Allergies Allergy/AdvReac Type Severity Reaction Status Date / Time No Known Allergies Allergy Verified 06/26/19 09:03 Physical Exam Vitals: Vital Signs Temp Pulse Resp BP BP Pulse Ox 06/27/19 15:00 98.8 F 95 16 122/75 96 06/27/19 12:22 98.3 F 90 16 138/75 98 06/27/19 06:00 98.2 F 82 20 173/97 98 06/26/19 22:35 98 F 87 20 154/79 97 Intake and Output 06/27/19 06/27/19 06/27/19 06:59 14:59 22:59 Intake Total 320 Balance 320 Intake: Oral 320 Other: # Voids 4 - Constitutional General appearance: cooperative, no acute distress, obese - EENT Eyes: anicteric sclerae, PERRLA, normal appearance ENT: hearing grossly normal - Neck Neck: no lymphadenopathy, normal ROM, no other, no rigidity, no stridor, no thyromegaly - Respiratory Respiratory: bilateral: CTA, negative: diminished, dullness, rales, rhonchi - Cardiovascular Rhythm: regular Heart sounds: normal: S1, S2 Abnormal Heart Sounds: Systolic murmur 2/6 - Gastrointestinal General gastrointestinal: normal bowel sounds, soft nontender - Integumentary Integumentary: no rash - Neurologic Neurologic: CNII-XII intact no sensory deficit - Musculoskeletal Musculoskeletal: 3+/5 right lower extremity 4/5 in the left lower stump extremity 5/5 in upper extremity bilaterally - Psychiatric Psychiatric: A&O x's 1, emotional in between conversation Results CBC & Chem 7: 06/26/19 10:00 06/26/19 10:00 Labs: Abnormal Lab Results - Last 24 Hours (Table) 06/26/19 06/27/19 06/27/19 Range/Units 20:39 07:07 12:01 POC Glucose (mg/dL) 149 H 159 H 276 H (75-99) mg/dL 06/27/19 Range/Units 17:11 POC Glucose (mg/dL) 287 H (75-99) mg/dL Microbiology - Last 24 Hours (Table) 06/26/19 10:00 Blood Culture - Preliminary Blood No Growth after 24 hours 06/26/19 11:16 Urine Culture - Preliminary Urine,Clean Catch Thrombosis Risk Factor Assmnt - DVT/VTE Prophylaxis DVT/VTE Prophylaxis: Pharmacologic Prophylaxis ordered - Choose All That Apply Each Risk Factor Represents 3 Points: Age 75 years or older Thrombosis Risk Factor Assessment Total Risk Factor Score: 3 Thrombosis Risk Factor Assessment Level: Moderate Risk Assessment and Plan Plan: #1 acute on chronic worsening of lower extremity weakness. CT lumbar spine does suggest L4 to S1 moderate spinal stenosis with bulging of test that can contribute to weakness in the lower extremity. Since patient's family gives history of weakness in the right side as compared to left side. MRI ordered to rule out stroke carotid and echocardiogram ordered. Neurology evaluation pending. PT OT ordered for possible rehab #2 acute kidney injury secondary to dehydration continue IV fluids at 75 mL/h #3 hypomagnesemia status post magnesium sulfate 1 gm #4 type 2 diabetes continue metformin and NPH 70/30 increased morning dose to 25 and evening dose to 15 #5 code status full code #6 hypertension continue Norvasc at 10 #70. DVT prophylaxis with heparin every 12
[2019-06-27 20:34] LABS: Glucose,Whole Blood 196 mg/dL (75-99)
[2019-06-27] MEDS: ASPIRIN 81 MG PO SCH (20:42)
[2019-06-28] MEDS: SODIUM CHLORIDE 0.9% 1,000 ML IV SCH ×2 (05:42→17:28)
[2019-06-28 07:33] LABS: Glucose,Whole Blood 141 mg/dL (75-99)
[2019-06-28] MEDS: INSULN ASP PRT/INSULIN ASPART 100 UNIT/ML 10 ML VIAL SQ SCH ×2 (08:05→18:00)
[2019-06-28] MEDS: metFORMIN 500 MG TAB PO SCH ×2 (08:05→18:47)
[2019-06-28] MEDS: amLODIPine 10 MG TAB PO PRN (08:06)
[2019-06-28] MEDS: CYANOCOBALAMIN 500 MCG TAB PO SCH (08:06)
[2019-06-28] MEDS: FAMOTIDINE 20 MG TAB PO SCH (08:06)
--- NOTE | 2019-06-28 08:11 | US ---
EXAMINATION TYPE: US carotid duplex BILAT DATE OF EXAM: 06/28/2019 COMPARISON: CT,MR today CLINICAL HISTORY: worsening LE weakness on the right . EXAM MEASUREMENTS: RIGHT: Peak Systolic Velocity (PSV) cm/sec ----- Right CCA: 59.0 ----- Right ICA: 80.8 ----- Right ECA: 75.3 ICA/CCA ratio: 1.4 RIGHT: End Diastole cm/sec ----- Right CCA: 10.1 ----- Right ICA: 13.6 ----- Right ECA: 16.1 LEFT: Peak Systolic Velocity (PSV) cm/sec ----- Left CCA: 45.2 ----- Left ICA: 99.6 ----- Left ECA: 164.7 ICA/CCA ratio: 2.2 LEFT: End Diastole cm/sec ----- Left CCA: 10.3 ----- Left ICA: 22.6 ----- Left ECA: 0.0 VERTEBRALS (direction of flow): Right Vertebral: Antegrade Left Vertebral: Antegrade Rhythm: Normal Hyperechoic, irregular wall plaque present in bilateral CCA, ECA and ICA with abnormally elevated PSV in proximal Left ECA. IMPRESSION: 1. Mild degree of grayscale atheromatous plaquing with no sonographically evident hemodynamically sig nificant stenosis within either visualized internal carotid or common carotid arterial system. 2. Elevated velocity of the left external carotid artery relating to 50-69% stenosis. Criteria for Assigning % of Stenosis / Diameter reduction (Estimation based on the indirect measurements of the internal carotid artery velocities (ICA PSV). 1. Normal (no stenosis)=ICA PSV < 125 cm/s: ratio < 2.0: ICA EDV<40 cm/s. 2. Less than 50% stenosis=ICA PSV < 125 cm/s: ratio < 2.0: ICA EDV<40 cm/s. 3. 50 to 69% stenosis=ICA PSV of 125 to 230 cm/s: ration 2.0 ? 4.0: ICA EDV 40-100 cm/s. 4. Greater than 70% stenosis to near occlusion= ICA PSV > 230 cm/s: ratio > 4.0: ICA EDV > 100 cm/s. 5. Near occlusion= ICA PSV velocities may be low or undetectable: variable ratio and ICA EDV. 6. Total occlusion=unable to detect flow.
--- NOTE | 2019-06-28 11:01 | ECHOF ---
Referral Reason:worsening LE weakness ont he right MEASUREMENTS -------- HEIGHT: 160.0 cm WEIGHT: 68.0 kg BP: RVIDd: 2.9 cm (< 3.3) IVSd: 1.5 cm (0.6 - 1.1) LVIDd: 3.3 cm (3.9 - 5.3) LVPWd: 1.6 cm (0.6 - 1.1) IVSs: 1.8 cm LVIDs: 2.5 cm LVPWs: 2.1 cm LAESV Index (A-L): 29.51 ml/m Ao Diam: 3.3 cm (2.0 - 3.7) AV Cusp: 2.0 cm (1.5 - 2.6) EPSS: 0.4 cm MV E Haroldo: 0.59 m/s MV DecT: 257 ms MV A Haroldo: 0.87 m/s MV E/A Ratio: 0.68 RAP: 5.00 mmHg RVSP: 34.11 mmHg MV EF SLOPE: 46.19 mm/s (70 - 150) MV EXCURSION: 1.15 cm (> 18.000) FINDINGS -------- Sinus rhythm. This was a technically adequate study. The left ventricular size is normal. There is moderate concentric left ventricular hypertrophy. O verall left ventricular systolic function is normal with, an EF between 55 - 60 %. The diastolic fi lling pattern is normal for the age of the patient. Septal wall motion is delayed and consistent wi th prior cardiac surgery. The right ventricle is normal in size. Left atrium is mildly dilated by volume. The right atrial size is normal. Interatrial and interventricular septum intact. The aortic valve is trileaflet and appears structurally normal. There is no evidence of aortic regu rgitation. There is no evidence of aortic stenosis. Mild mitral annular calcification present. Mild mitral regurgitation is present. Mild tricuspid regurgitation present. There is mild pulmonary hypertension. The right ventricular systolic pressure, as measured by Doppler, is 34.11mmHg. There is no pulmonic regurgitation present. The aortic root size is normal. IVC not well visualized There is no pericardial effusion. CONCLUSIONS -------- 1. Sinus rhythm. 2. This was a technically adequate study. 3. The left ventricular size is normal. 4. There is moderate concentric left ventricular hypertrophy. 5. Overall left ventricular systolic function is normal with, an EF between 55 - 60 %. 6. The diastolic filling pattern is normal for the age of the patient. 7. The right ventricle is normal in size. 8. Left atrium is mildly dilated by volume. 9. The right atrial size is normal. 10. Interatrial and interventricular septum intact. 11. The aortic valve is trileaflet and appears structurally normal. 12. There is no evidence of aortic regurgitation. 13. There is no evidence of aortic stenosis. 14. Mild mitral annular calcification present. 15. Mild mitral regurgitation is present. 16. Mild tricuspid regurgitation present. 17. There is mild pulmonary hypertension. 18. The right ventricular systolic pressure, as measured by Doppler, is 34.11mmHg. 19. There is no pulmonic regurgitation present. 20. The aortic root size is normal. 21. IVC not well visualized 22. There is no pericardial effusion. MACHINE I COREMAKER: Ashley Dunaway RDCS
--- NOTE | 2019-06-28 11:10 | MR ---
EXAMINATION TYPE: MR brain wo/w con DATE OF EXAM: 06/28/2019 COMPARISON: CT brain 06/26/2019 HISTORY: Rule out CVA CONTRAST: Performed utilizing 0 mL intravenous Gadavist gadolinium contrast. TECHNIQUE: Multiplanar, multiecho imaging on a 3.0 Payton magnet is performed through the brain. Stud y is not performed within 24 hours of arrival to the hospital. The craniovertebral junction is normal. The pituitary is normal. Diffusion-weighted imaging is performed. No abnormal hyperintensity is present to suggest an acute i ntracranial infarct or acute ischemic change. There is confluent periventricular white matter hyperintensity on T2 and inversion recovery weighted sequences which can be compatible with chronic white matter ischemic change. No suspicious acute isch emic areas are evident. There is some white matter changes within the brainstem. Following contrast, no abnormal enhancement is evident. Small lacunar infarcts are likely within the bilateral thalami. Ventricles and sulci are prominent for the patient age. IMPRESSIONS: 1. Atrophy with confluent periventricular white matter ischemic type changes. 2. Acute changes are not identified.
[2019-06-28 11:12] LABS: Hemoglobin A1C 6.9 % (4.0-6.0)
[2019-06-28 12:19] LABS: Glucose,Whole Blood 124 mg/dL (75-99)
--- NOTE | 2019-06-28 14:52 | P.PN ---
Subjective Progress Note Date: 06/28/19 78 years old male patient of Dr. Howard with past medical history of coronary artery disease status post CABG, history of dementia, history of diabetes, history of GERD, history of hypertension comes in with the gradually worsening weakness involving his lower extremity. Daughter at bedside explains that patient's symptoms started in December where he lost weakness in his right lower extremity with foot drop and patient was noted to be dragging his leg along the way. He was also noted to fall on his right side. Patient is to use a walker and has lost weakness in bilateral lower extremity is currently wheelchair- bound. He was able to transfer himself in and out of bed but is not able to do so for the past few days. The daughter brought the patient to the hospital to help with rehab and physical therapy to help regain power in his lower extremity. On evaluation patient is unable to provide any history because of his dementia but he does follow commands appropriately is noted to be weaker on his right side as compared to his left side. No history of facial droop, seizures, speech or swallowing difficulty given. Patient has never had a stroke workup. Neurology is consulted for evaluation of stroke. Carotid ultrasound and echocardiogram ordered. Computed tomography scan was negative for any acute ischemia but no changes of cerebral volume loss seen due to chronic micro- angiopathy. Neurology consult placed. IV fluids continued at 75 mL per hour due to concern of dehydration on on BMP. Glucose was slightly elevated. Continue patient on NovoLog and metformin 06/28: The patient is pleasantly confused this morning. Carotid ultrasound showed mild degree of plaquing with no significant stenosis of the internal carotid arteries or common carotid artery system. MRI of the brain reveals atrophy with confluent. Ventricular white matter ischemic type changes. Acute changes are not identified. Echocardiogram reveals EF of 55-60% with moderate concentric left ventricular hypertrophy, mild mitral regurgitation, mild tricuspid regurgitation, mild pulmonary hypertension. Review of Systems Review of systems could not be obtained Objective - Vital Signs Vital signs: Vital Signs Temp 97.8 F 06/28/19 05:20 Pulse 82 06/28/19 05:20 Resp 20 06/28/19 05:20 BP 163/81 06/28/19 05:20 Pulse Ox 97 06/28/19 05:20 Intake & Output 06/27/19 06/28/19 06/28/19 18:59 06:59 18:59 Intake Total 320 100 Balance 320 100 Intake: Oral 320 100 Other: Voiding Method Incontinent # Voids 4 3 - Exam - Constitutional General appearance: cooperative, no acute distress, obese - EENT Eyes: anicteric sclerae, PERRLA, normal appearance ENT: hearing grossly normal - Neck Neck: no lymphadenopathy, normal ROM, no other, no rigidity, no stridor, no thyromegaly - Respiratory Respiratory: bilateral: CTA, negative: diminished, dullness, rales, rhonchi - Cardiovascular Rhythm: regular Heart sounds: normal: S1, S2 Abnormal Heart Sounds: Systolic murmur 2/6 - Gastrointestinal General gastrointestinal: normal bowel sounds, soft nontender - Integumentary Integumentary: no rash - Neurologic Neurologic: CNII-XII intact no sensory deficit - Musculoskeletal Musculoskeletal: 3+/5 right lower extremity 4/5 in the left lower stump extremity 5/5 in upper extremity bilaterally - Psychiatric Psychiatric: A&O x's 1 - Labs CBC & Chem 7: 06/26/19 10:00 06/26/19 10:00 Labs: Abnormal Lab Results - Last 24 Hours (Table) 06/27/19 06/27/19 06/27/19 Range/Units 12:01 17:11 20:29 POC Glucose (mg/dL) 276 H 287 H 196 H (75-99) mg/dL 06/28/19 Range/Units 07:26 POC Glucose (mg/dL) 141 H (75-99) mg/dL Microbiology - Last 24 Hours (Table) 06/26/19 11:16 Urine Culture - Final Urine,Clean Catch 06/26/19 10:00 Blood Culture - Preliminary Blood No Growth after 24 hours Assessment and Plan Plan: #1 acute on chronic worsening of lower extremity weakness. CT lumbar spine does suggest L4 to S1 moderate spinal stenosis with bulging of test that can contribute to weakness in the lower extremity. MRI of the brain, carotid ultrasound, echocardiogram above. Neurology evaluation pending. PT OT ordered for possible rehab #2 acute kidney injury secondary to dehydration continue IV fluids at 75 mL/h #3 hypomagnesemia status post magnesium sulfate 1 gm #4 type 2 diabetes continue metformin and NPH 70/30 increased morning dose to 25 and evening dose to 15 #5 code status full code #6 hypertension continue Norvasc at 10 #70. DVT prophylaxis with heparin every 12 Discharge Plan: Subacute rehab. PT and OT on consult. Impression and plan of care have been directed as dictated by the signing physician. Luisa Dow nurse practitioner acting as scribe for signing physician.
[2019-06-28 17:19] LABS: Glucose,Whole Blood 265 mg/dL (75-99)
[2019-06-28] MEDS: ASPIRIN 81 MG PO SCH (21:03)
[2019-06-28 21:09] LABS: Glucose,Whole Blood 197 mg/dL (75-99)
[2019-06-29 05:19] VITALS: PULSE 88
[2019-06-29 06:52] LABS: Glucose,Whole Blood 188 mg/dL (75-99)
[2019-06-29] MEDS: INSULN ASP PRT/INSULIN ASPART 100 UNIT/ML 10 ML VIAL SQ SCH (08:19)
[2019-06-29] MEDS: SODIUM CHLORIDE 0.9% 1,000 ML IV SCH (08:19)
[2019-06-29] MEDS: CYANOCOBALAMIN 500 MCG TAB PO SCH (08:20)
[2019-06-29] MEDS: metFORMIN 500 MG TAB PO SCH (08:20)
[2019-06-29] MEDS: FAMOTIDINE 20 MG TAB PO SCH (08:20)
[2019-06-29 11:53] LABS: Glucose,Whole Blood 264 mg/dL (75-99)
--- NOTE | 2019-06-29 12:43 | P.DS ---
Providers Date of admission: 06/26/19 13:07 Expected date of discharge: 06/29/19 Attending physician: Hemanth Buchanan MD Consults: 06/26/19 13:08 Consult Physician Urgent Consulting Provider: Sarah Beth Lauren Consult Reason/Comments: Weakness and ataxia Do you want consulting provider notified?: Yes Primary care physician: [facility] Course: 78 years old male patient of Dr. Howard with past medical history of coronary artery disease status post CABG, history of dementia, history of diabetes, history of GERD, history of hypertension comes in with the gradually worsening weakness involving his lower extremity. Daughter at bedside explains that patient's symptoms started in December where he lost weakness in his right lower extremity with foot drop and patient was noted to be dragging his leg along the way. He was also noted to fall on his right side. Patient is to use a walker and has lost weakness in bilateral lower extremity is currently wheelchair- bound. He was able to transfer himself in and out of bed but is not able to do so for the past few days. The daughter brought the patient to the hospital to help with rehab and physical therapy to help regain power in his lower extremity. On evaluation patient is unable to provide any history because of his dementia but he does follow commands appropriately is noted to be weaker on his right side as compared to his left side. No history of facial droop, seizures, speech or swallowing difficulty given. Patient has never had a stroke workup. Neurology is consulted for evaluation of stroke. Carotid ultrasound and echocardiogram ordered. Computed tomography scan was negative for any acute ischemia but no changes of cerebral volume loss seen due to chronic micro- angiopathy. Neurology consult placed. IV fluids continued at 75 mL per hour due to concern of dehydration on on BMP. Glucose was slightly elevated. Continue patient on NovoLog and metformin 06/28: The patient is pleasantly confused this morning. Carotid ultrasound showed mild degree of plaquing with no significant stenosis of the internal carotid arteries or common carotid artery system. MRI of the brain reveals atrophy with confluent. Ventricular white matter ischemic type changes. Acute changes are not identified. Echocardiogram reveals EF of 55-60% with moderate concentric left ventricular hypertrophy, mild mitral regurgitation, mild tricuspid regurgitation, mild pulmonary hypertension. 06/29: This morning, patient is nonverbal. Patient is oriented to person and recognizes name only. He is confused but obeys commands. He does not appear to be in any distress, no respiratory distress noted. Patient has been afebrile, heart rate 88, blood pressure 121/78, pulse ox 98% on room air. The patient will be discharged to [facility] once all arrangements are completed. Discharge diagnoses: #1 acute on chronic worsening of lower extremity weakness. CT lumbar spine does suggest L4 to S1 moderate spinal stenosis with bulging of test that can contribute to weakness in the lower extremity. MRI of the brain, carotid ultrasound, echocardiogram above. Neurology evaluation pending. PT OT ordered for possible rehab #2 acute kidney injury secondary to dehydration #3 hypomagnesemia #4 type 2 diabetes #5 hypertension Discharge Plan: [facility] Impression and plan of care have been directed as dictated by the signing physician. Luisa Dow nurse practitioner acting as scribe for signing physician. Patient Condition at Discharge: Good Plan - Discharge Summary Discharge Rx Participant: No New Discharge Prescriptions: Continue metFORMIN HCL 1,000 mg PO BID Aspirin EC [Ecotrin Low Dose] 81 mg PO HS Ranitidine HCl [Zantac] 150 mg PO BID #60 tab amLODIPine [Norvasc] 10 mg PO DAILY PRN PRN Reason: BP> 160 Acetaminophen Tab [Tylenol] 325 - 650 mg PO Q8H PRN PRN Reason: Pain Cyanocobalamin (Vitamin B-12) [Vitamin B-12] 1,000 mcg PO DAILY Changed Insulin NPH Hum/Reg Insulin Hm [humuLIN 70/30 Kwikpen] 15 unit SQ AC-SUPPER #0 Insulin NPH Hum/Reg Insulin Hm [humuLIN 70/30 Kwikpen] 25 unit SQ AC-BRKFST #0 Discontinued Ibuprofen [Motrin] 600 mg PO Q8HR PRN #20 tab PRN Reason: Pain Discharge Medication List metFORMIN HCL 1,000 mg PO BID 07/17/17 [History] Aspirin EC [Ecotrin Low Dose] 81 mg PO HS 01/30/18 [History] Ranitidine HCl [Zantac] 150 mg PO BID #60 tab 01/30/18 [Rx] Acetaminophen Tab [Tylenol] 325 - 650 mg PO Q8H PRN 04/02/19 [History] amLODIPine [Norvasc] 10 mg PO DAILY PRN 04/02/19 [History] Cyanocobalamin (Vitamin B-12) [Vitamin B-12] 1,000 mcg PO DAILY 06/26/19 [History] Insulin NPH Hum/Reg Insulin Hm [humuLIN 70/30 Kwikpen] 15 unit SQ AC-SUPPER #0 06/29/19 [Rx] Insulin NPH Hum/Reg Insulin Hm [humuLIN 70/30 Kwikpen] 25 unit SQ AC-BRKFST #0 06/29/19 [Rx] Follow up Appointment(s)/Referral(s): Socrates Finch MD [Primary Care Provider] - 1 Week (after discharge from ECF) Discharge Disposition: TRANSFER TO SNF/ECF
[2019-06-29 14:09] VITALS: BP 121/78; RESP 15; TEMP 97.8
--- NOTE | 2019-07-01 12:31 | CDI ---
Documentation Clarification Form Date: 07/01/19 From: Olamide Lynch Phone: If you have a question regarding this query, please contact Minda Bailey at [phone] between 8am and 5pm. Admit Date: 06/26/2019 1:07:00 PM Patient Name: Jackie Wang Visit Number: [id number] Discharge Date: 06/29/2019 2:45:00 PM ATTENTION: The Clinical Documentation Specialists (CDI) and [facility] Coding Staff appreciate your assistance in clarifying documentation. Please respond to the clarification below the line at the bottom and electronically sign. The CDI & [facility] Coding staff will review the response and follow-up if needed. Please note: Queries are made part of the Legal Health Record. If you have any questions, please contact the author of this message via ITS. Dr. Hemanth Buchanan Altered Mental Status was documented in the ED note. History/Risk Factors: Dehydration, Dementia, Hypertension, Diabetes, Clinical Indicators: Confusion documented in the ED note, Consult note, discharge summary and progress note Labs: Sodium 135, carbon dioxide 20, BUN 27, glucose 240, magnesium 1.4; CT: Brain without contrast 06/26: No acute intracranial abnormality, senescent changes including cerebral volume loss and sequale of chronic microangiopathy. CT: Brain w/wo contrast 06/28: Atrophy with confluent periventricular white matter ischemic type changes, acute changes are not identified. Treatment: IV fluids 500 ml bolus then at 100 mls/hr In your professional opinion, please clarify the etiology of the Altered Mental Status, if known. Delirium (specify cause): Dementia (if know, specify Type and if with/without Behavioral Disturbance) Encephalopathy (specify Type and Underlying Medical Illness) Other condition (please specify) Unable to determine Dementia MTDD
== END 2019-06-29 14:45 | DRG 552 ==
LOC: EC 08:40 → 4MS4W 13:07
PROVIDERS: ADMIT Internal Medicine; ATTEND Internal Medicine
DX: M48.07 Spinal stenosis, lumbosacral region (principal); N17.9 Acute kidney failure, unspecified; M48.061 Spinal stenosis, lumbar region without neurogenic claudication; I27.20 Pulmonary hypertension, unspecified; E86.0 Dehydration; E83.42 Hypomagnesemia; I08.1 Rheumatic disorders of both mitral and tricuspid valves; E11.9 Type 2 diabetes mellitus without complications; F03.90 Unspecified dementia, unspecified severity, without behavioral disturbance, psychotic disturbance, mood disturbance, and anxiety; I11.9 Hypertensive heart disease without heart failure; M51.26 Other intervertebral disc displacement, lumbar region; M51.27 Other intervertebral disc displacement, lumbosacral region; I25.10 Atherosclerotic heart disease of native coronary artery without angina pectoris; K21.9 Gastro-esophageal reflux disease without esophagitis; M21.371 Foot drop, right foot; R27.0 Ataxia, unspecified; M47.9 Spondylosis, unspecified; Z79.4 Long term (current) use of insulin; Z79.82 Long term (current) use of aspirin; Z79.899 Other long term (current) drug therapy; Z87.891 Personal history of nicotine dependence; Z95.1 Presence of aortocoronary bypass graft; Z99.3 Dependence on wheelchair; W19.XXXA Unspecified fall, initial encounter
CPT/HCPCS: 36415; 70450; 70553; 71046; 72131; 72170; 80053; 81003; 83036; 83605; 83735; 84100; 84439; 84443; 84481; 84484; 85025; 85610; 85730; 87040; 87086; 93005; 93306; 93880; 96360; 96361; 99285

== ENCOUNTER 2019-10-14 12:14 | Observation (INO) | payer MEDICARE ==
[2019-10-14] MEDS ORDERED: PANTOPRAZOLE 40 MG/10 ML VIAL IVP STA (12:27)
[2019-10-14] MEDS ORDERED: SODIUM CHLORIDE 0.9% 1,000 ML IV STA (12:27)
[2019-10-14] MEDS ORDERED: ONDANSETRON 4 MG/2 ML VIAL IVP STA (12:27)
--- NOTE | 2019-10-14 12:30 | ED ---
GI Bleed HPI - General Chief complaint: GI Bleed Stated complaint: GI Bleed Time Seen by Provider: 10/14/19 12:25 Source: patient, RN notes reviewed, old records reviewed Mode of arrival: EMS Limitations: no limitations - History of Present Illness Initial comments: This is a 78-year-old male date ER for evaluation presents today for evaluation regards to vomiting dark material, likely blood. No blood tenderness or patient patient is a poor historian history of fever patient's chart family is at bedside limited historian regarding patient's symptoms. Patient himself is denying any complaints currently MD complaint: blood streaked emesis, coffee ground emesis -: unknown Radiation: none Quality: painless Consistency: intermittent Improves with: none Worsens with: eating Context: history of GI bleed Associated Symptoms: nausea, vomiting Treatments Prior to Arrival: none - Related Data Home Medications Medication Instructions Recorded Confirmed metFORMIN HCL 1,000 mg PO BID 07/17/17 06/26/19 Aspirin EC [Ecotrin Low Dose] 81 mg PO HS 01/30/18 06/26/19 Acetaminophen Tab [Tylenol] 325 - 650 mg PO Q8H PRN 04/02/19 06/26/19 amLODIPine [Norvasc] 10 mg PO DAILY PRN 04/02/19 06/26/19 Cyanocobalamin (Vitamin B-12) 1,000 mcg PO DAILY 06/26/19 06/26/19 [Vitamin B-12] Previous Rx's Medication Instructions Recorded Ranitidine HCl [Zantac] 150 mg PO BID #60 tab 01/30/18 Insulin NPH Hum/Reg Insulin Hm 15 unit SQ AC-SUPPER #0 06/29/19 [humuLIN 70/30 Kwikpen] Insulin NPH Hum/Reg Insulin Hm 25 unit SQ AC-BRKFST #0 06/29/19 [humuLIN 70/30 Kwikpen] Allergies Allergy/AdvReac Type Severity Reaction Status Date / Time No Known Allergies Allergy Verified 06/26/19 09:03 Review of Systems ROS Statement: Those systems with pertinent positive or pertinent negative responses have been documented in the HPI. ROS Other: All systems not noted in ROS Statement are negative. Past Medical History Past Medical History: Coronary Artery Disease (CAD), Dementia, Diabetes Mellitus, GERD/Reflux, Hypertension Additional Past Medical History / Comment(s): edema History of Any Multi-Drug Resistant Organisms: None Reported Past Surgical History: Coronary Bypass/CABG Past Psychological History: No Psychological Hx Reported Smoking Status: Former smoker Past Alcohol Use History: None Reported Past Drug Use History: None Reported General Exam Limitations: no limitations, altered mental status General appearance: alert, in no apparent distress Head exam: Present: atraumatic, normocephalic, normal inspection Eye exam: Present: normal appearance, PERRL, EOMI. Absent: scleral icterus, conjunctival injection, periorbital swelling ENT exam: Present: normal exam, mucous membranes moist Neck exam: Present: normal inspection. Absent: tenderness, meningismus, lymphadenopathy Respiratory exam: Present: normal lung sounds bilaterally. Absent: respiratory distress, wheezes, rales, rhonchi, stridor Cardiovascular Exam: Present: regular rate, normal rhythm, normal heart sounds. Absent: systolic murmur, diastolic murmur, rubs, gallop, clicks GI/Abdominal exam: Present: soft, normal bowel sounds. Absent: distended, tenderness, guarding, rebound, rigid Extremities exam: Present: normal inspection, full ROM, normal capillary refill. Absent: tenderness, pedal edema, joint swelling, calf tenderness Back exam: Present: normal inspection Neurological exam: Present: alert, oriented X3, CN II-XII intact Psychiatric exam: Present: normal affect, normal mood Skin exam: Present: warm, dry, intact, normal color. Absent: rash Course Vital Signs 10/14/19 10/14/19 10/14/19 12:17 12:30 13:00 Temperature 97.8 F Pulse Rate 84 85 82 Respiratory 18 18 18 Rate Blood Pressure 136/69 136/69 148/77 O2 Sat by Pulse 98 96 98 Oximetry 10/14/19 13:30 Temperature Pulse Rate 88 Respiratory 16 Rate Blood Pressure 135/68 O2 Sat by Pulse 96 Oximetry - Reevaluation(s) Reevaluation #1: 10/14/19 14:39 Records reviewed Reevaluation #2: 10/14/19 14:39 No active vomiting of blood here in the ER - Consultations Consultation #1: Dr. Acosta for Dr. Howard who will accept patient has admission with GI consult Medical Decision Making - Medical Decision Making 78 male date ER for evaluation presents afebrile evaluation of GI bleed history of GI bleed will admit for persistent evaluation of hemoglobin change in hemoglobin. - Lab Data Result diagrams: 10/14/19 13:44 10/14/19 13:44 Lab Results 10/14/19 10/14/19 10/14/19 Range/Units 13:44 13:44 13:44 WBC 8.1 (3.8-10.6) k/uL RBC 4.25 L (4.30-5.90) m/uL Hgb 13.6 (13.0-17.5) gm/dL Hct 39.1 (39.0-53.0) % MCV 92.1 (80.0-100.0) fL MCH 32.0 (25.0-35.0) pg MCHC 34.8 (31.0-37.0) g/dL RDW 13.3 (11.5-15.5) % Plt Count 261 (150-450) k/uL Neutrophils % 64 % Lymphocytes % 22 % Monocytes % 8 % Eosinophils % 3 % Basophils % 1 % Neutrophils # 5.1 (1.3-7.7) k/uL Lymphocytes # 1.7 (1.0-4.8) k/uL Monocytes # 0.7 (0-1.0) k/uL Eosinophils # 0.2 (0-0.7) k/uL Basophils # 0.1 (0-0.2) k/uL PT 9.8 (9.0-12.0) sec INR 0.9 (<1.2) APTT 23.9 (22.0-30.0) sec Sodium 137 (137-145) mmol/L Potassium 4.2 (3.5-5.1) mmol/L Chloride 102 (98-107) mmol/L Carbon Dioxide 25 (22-30) mmol/L Anion Gap 10 mmol/L BUN 35 H (9-20) mg/dL Creatinine 1.04 (0.66-1.25) mg/dL Est GFR (CKD-EPI)AfAm 79 (>60 ml/min/1.73 sqM) Est GFR (CKD-EPI)NonAf 68 (>60 ml/min/1.73 sqM) Glucose 162 H (74-99) mg/dL Calcium 9.4 (8.4-10.2) mg/dL Magnesium 1.5 L (1.6-2.3) mg/dL Total Bilirubin 0.6 (0.2-1.3) mg/dL AST 28 (17-59) U/L ALT 16 (4-49) U/L Alkaline Phosphatase 78 (38-126) U/L Creatine Kinase 103 (55-170) U/L Troponin I (0.000-0.034) ng/mL Total Protein 6.4 (6.3-8.2) g/dL Albumin 3.7 (3.5-5.0) g/dL 10/14/19 Range/Units 13:44 WBC (3.8-10.6) k/uL RBC (4.30-5.90) m/uL Hgb (13.0-17.5) gm/dL Hct (39.0-53.0) % MCV (80.0-100.0) fL MCH (25.0-35.0) pg MCHC (31.0-37.0) g/dL RDW (11.5-15.5) % Plt Count (150-450) k/uL Neutrophils % % Lymphocytes % % Monocytes % % Eosinophils % % Basophils % % Neutrophils # (1.3-7.7) k/uL Lymphocytes # (1.0-4.8) k/uL Monocytes # (0-1.0) k/uL Eosinophils # (0-0.7) k/uL Basophils # (0-0.2) k/uL PT (9.0-12.0) sec INR (<1.2) APTT (22.0-30.0) sec Sodium (137-145) mmol/L Potassium (3.5-5.1) mmol/L Chloride (98-107) mmol/L Carbon Dioxide (22-30) mmol/L Anion Gap mmol/L BUN (9-20) mg/dL Creatinine (0.66-1.25) mg/dL Est GFR (CKD-EPI)AfAm (>60 ml/min/1.73 sqM) Est GFR (CKD-EPI)NonAf (>60 ml/min/1.73 sqM) Glucose (74-99) mg/dL Calcium (8.4-10.2) mg/dL Magnesium (1.6-2.3) mg/dL Total Bilirubin (0.2-1.3) mg/dL AST (17-59) U/L ALT (4-49) U/L Alkaline Phosphatase (38-126) U/L Creatine Kinase (55-170) U/L Troponin I <0.012 (0.000-0.034) ng/mL Total Protein (6.3-8.2) g/dL Albumin (3.5-5.0) g/dL - EKG Data -: EKG Interpreted by Me (EKG shows sinus rhythm rate of 85, IL 160, QRS 70, QTc 454) Disposition Clinical Impression: Weakness, GI bleed, UGIB (upper gastrointestinal bleed) Disposition: [facility] Condition: Fair Is patient prescribed a controlled substance at d/c from ED?: No Referrals: Socrates Finch MD [Primary Care Provider] - 1-2 days
[2019-10-14 14:09] LABS: Basophils # (A) 0.1 k/uL (0-0.2); Basophils % (A) 1 %; Eosinophils # (A) 0.2 k/uL (0-0.7); Eosinophils % (A) 3 %; HCT 39.1 % (39.0-53.0); HGB 13.6 gm/dL (13.0-17.5); Lymphocytes # (A) 1.7 k/uL (1.0-4.8); Lymphocytes % (A) 22 %; MCHC 34.8 g/dL (31.0-37.0); MCV 92.1 fL (80.0-100.0); Mean Platelet Volume 9.2; Monocytes # (A) 0.7 k/uL (0-1.0); Monocytes % (A) 8 %; Neutrophils # (A) 5.1 k/uL (1.3-7.7); Neutrophils % (A) 64 %; Platelet Count 261 k/uL (150-450); RBC 4.25 m/uL (4.30-5.90); RDW 13.3 % (11.5-15.5); WBC 8.1 k/uL (3.8-10.6)
[2019-10-14 14:11] LABS: INR 0.9 (<1.2); Partial Thromboplastin Time 23.9 sec (22.0-30.0); Prothrombin Time 9.8 sec (9.0-12.0)
[2019-10-14 14:13] LABS: Albumin 3.7 g/dL (3.5-5.0); Calcium 9.4 mg/dL (8.4-10.2); Magnesium 1.5 mg/dL (1.6-2.3); Potassium 4.2 mmol/L (3.5-5.1); Total Bilirubin 0.6 mg/dL (0.2-1.3); Total Protein 6.4 g/dL (6.3-8.2)
[2019-10-14] MEDS ORDERED: SODIUM CHLORIDE 0.9% 1,000 ML IV ONE (14:34)
[2019-10-14] MEDS ORDERED: ONDANSETRON 4 MG/2 ML VIAL IVP PRN (14:36)
[2019-10-14] MEDS ORDERED: amLODIPine 10 MG TAB PO PRN (18:10)
[2019-10-14] MEDS ORDERED: ACETAMINOPHEN TAB 325 MG TAB PO PRN (18:10)
[2019-10-14] MEDS: PANTOPRAZOLE 40 MG/10 ML VIAL IVP SCH (20:55)
[2019-10-14 21:28] VITALS: RESP 16
--- NOTE | 2019-10-15 00:01 | P.CONS ---
History of Present Illness - Reason for Consult Consult date: 10/14/19 GI bleed Requesting physician: Hemanth Buchanan - Chief Complaint Dark colored vomit - History of Present Illness 78-year-old male with a medical history significant for coronary artery disease, dementia, hypertension and diabetes mellitus who was sent in from his care facil [facility] due to episodes of vomiting dark colored material. Of note history is been taken in conversation with the patient and his daughter who is bedside. They deny any prior history of GI bleeding. Patient is on baby aspirin daily. No prior endoscopy with either EGD or colonoscopy. Patient does have problems with recurrent heartburn as well as persistent hiccups and belching and takes Zantac chronically. He was sent and after 2 episodes of dark colored emesis however no further episodes since presentation to the hospital. Denies any belly pain. No change in bowel habits. Laboratory evaluation was normal on presentation with WBC 6.1, hemoglobin 13.6, creatinine 1, total bilirubin 0.6, alkaline phosphatase 78, AST 28 and ALT 16. Review of Systems REVIEW OF SYSTEMS: CONSTITUTIONAL: Denies any fevers, chills, weight change or fatigue. CARDIOVASCULAR: Denies any chest pain, palpitations high or low blood pressures RESPIRATORY: Denies any shortness of breath, hemoptysis or cough. GENITOURINARY: No dysuria or hematuria. MUSCULOSKELETAL: No weakness reported. SKIN: Denies any new rashes or lesions, jaundice or pallor. PSYCHIATRIC: Denies any depression or anxiety. NEUROLOGY: Denies headache, denies any new focal deficits. EARS/NOSE/THROAT: No recent hearing change, congestion, nasal discharge or sore throat. EYES: No pain in eyes, discharge or change in vision. GASTROINTESTINAL: As per HPI. Past Medical History Past Medical History: Coronary Artery Disease (CAD), Dementia, Diabetes Mellitus, GERD/Reflux, Hypertension Additional Past Medical History / Comment(s): edema History of Any Multi-Drug Resistant Organisms: None Reported Past Surgical History: Coronary Bypass/CABG Past Psychological History: No Psychological Hx Reported Smoking Status: Former smoker Past Alcohol Use History: None Reported Past Drug Use History: None Reported - Past Family History Father Family Medical History: Unable to Obtain Medications and Allergies Home Medications Medication Instructions Recorded Confirmed Type metFORMIN HCL 1,000 mg PO BID@0700,1600 07/17/17 10/14/19 History Aspirin EC [Ecotrin Low Dose] 81 mg PO HS@1700 01/30/18 10/14/19 History Acetaminophen Tab [Tylenol] 650 mg PO DAILY@0700 04/02/19 10/14/19 History amLODIPine [Norvasc] 10 mg PO DAILY PRN 04/02/19 10/14/19 History Acetaminophen Tab [Tylenol Tab] 650 mg PO Q8H PRN 10/14/19 10/14/19 History Calcium Carbonate [Tums] 500 - 1,000 mg PO BID PRN 10/14/19 10/14/19 History Ergocalciferol [Vitamin D2] 50,000 unit PO TU@0700 10/14/19 10/14/19 History Insulin NPH Hum/Reg Insulin Hm 10 unit SQ AC-BRKFST@0700 10/14/19 10/14/19 History [humuLIN 70/30 Kwikpen] Insulin NPH Hum/Reg Insulin Hm 20 unit SQ AC-SUPPER@1600 10/14/19 10/14/19 History [humuLIN 70/30 Kwikpen] Omeprazole [PriLOSEC] 20 mg PO DAILY@0700 10/14/19 10/14/19 History Sucralfate [Carafate] 1 gm PO ACHS 10/14/19 10/14/19 History Allergies Allergy/AdvReac Type Severity Reaction Status Date / Time No Known Allergies Allergy Verified 10/14/19 16:33 Physical Exam Vitals: Vital Signs Temp Pulse Resp BP Pulse Ox 10/14/19 16:00 82 12 138/57 94 L 10/14/19 15:30 81 15 142/72 96 10/14/19 15:00 79 16 128/71 95 10/14/19 14:30 80 13 131/84 98 10/14/19 14:00 86 14 131/84 97 10/14/19 13:30 88 16 135/68 96 10/14/19 13:00 82 18 148/77 98 10/14/19 12:30 85 18 136/69 96 10/14/19 12:17 97.8 F 84 18 136/69 98 Intake and Output 10/14/19 10/14/19 10/14/19 06:59 14:59 22:59 Other: Weight 63.503 kg On physical examination, patient appears comfortable in no apparent distress. HEAD: Normocephalic, atraumatic. EYES: No scleral icterus. No conjunctival injection. MOUTH: No lesions, tongue midline. NECK: Trachea midline, no gross abnormalities. CHEST: Clear to auscultation with no wheezing or rhonchi appreciated. HEART: Regular rate and rhythm. ABDOMEN: Soft, nontender to palpation. Bowel sounds are positive. No organomegaly. No guarding or rigidity. EXTREMITIES: No pedal edema. SKIN: No rashes, no jaundice. NEUROLOGIC: Alert and oriented to person. Results CBC & Chem 7: 10/14/19 13:44 10/14/19 13:44 Labs: Abnormal Lab Results - Last 24 Hours (Table) 10/14/19 10/14/19 Range/Units 13:44 13:44 RBC 4.25 L (4.30-5.90) m/uL BUN 35 H (9-20) mg/dL Glucose 162 H (74-99) mg/dL Magnesium 1.5 L (1.6-2.3) mg/dL Assessment and Plan (1) Coffee ground emesis Narrative/Plan: 78-year-old male with multiple medical comorbidities who presented to the hospital due to "dark-colored emesis on 2 occasions. No further episodes since that time. No melena or hematochezia reported. No abdominal pain reported. No prior history of GI bleeds reported. Patient is on Zantac at home. Hemoglobin was stable on presentation at 13.6. Unclear etiology, may be related to gastritis, esophagitis, Louisa-Lugo tear, or may represent dark bilious emesis or other etiology. Current Visit: Yes Status: Acute Code(s): K92.0 - HEMATEMESIS SNOMED Code(s): 16903089 Plan: Supportive care Continue to monitor symptoms Continue monitor CBC and transfuse as needed Continue Protonix 40 mg twice daily Unclear if the described symptoms actually represent a GI bleed given the patient's stable hemoglobin and absence of further episodes of coffee-ground e mesis or melena after presentation to the hospital, we'll continue to observe No plan for endoscopy at this time, however if patient develops further symptoms or laboratory dyscrasias which warrant further evaluation will reevaluate at that time Thank you for allowing us to participate in the care of the patient we will continue to follow
[2019-10-15] MEDS ORDERED: NON FORMULARY DRUG (Omeprazole 20 MG) PO SCH (07:00)
[2019-10-15] MEDS ORDERED: INSULN ASP PRT/INSULIN ASPART 100 UNIT/ML 10 ML VIAL SQ SCH ×2 (07:00→16:00)
[2019-10-15] MEDS: PANTOPRAZOLE 40 MG/10 ML VIAL IVP SCH (08:30)
[2019-10-15 08:31] LABS: Glucose,Whole Blood 172 mg/dL (75-99)
[2019-10-15 08:32] LABS: Basophils % (A) 0 %; Eosinophils # (A) 0.3 k/uL (0-0.7); Eosinophils % (A) 4 %; HCT 35.1 % (39.0-53.0); HGB 11.8 gm/dL (13.0-17.5); Lymphocytes # (A) 1.4 k/uL (1.0-4.8); Lymphocytes % (A) 22 %; MCH 30.5 pg (25.0-35.0); MCHC 33.7 g/dL (31.0-37.0); MCV 90.6 fL (80.0-100.0); Mean Platelet Volume 8.9; Monocytes # (A) 0.5 k/uL (0-1.0); Monocytes % (A) 8 %; Neutrophils # (A) 3.9 k/uL (1.3-7.7); Neutrophils % (A) 63 %; Platelet Count 243 k/uL (150-450); RBC 3.87 m/uL (4.30-5.90); RDW 13.4 % (11.5-15.5); WBC 6.2 k/uL (3.8-10.6)
[2019-10-15 08:42] LABS: Calcium 8.7 mg/dL (8.4-10.2); Potassium 4.2 mmol/L (3.5-5.1); Total Bilirubin 0.6 mg/dL (0.2-1.3); Total Protein 5.5 g/dL (6.3-8.2)
[2019-10-15 11:15] LABS: Glucose,Whole Blood 133 mg/dL (75-99)
[2019-10-15 11:44] VITALS: BP 142/71; PULSE 78; TEMP 97.3
--- NOTE | 2019-10-15 12:16 | P.CRDCN ---
History of Present Illness Consult date: 10/15/19 Requesting physician: Nate Mendez Reason for Consult (text): nonsustained VT Chief complaint: nausea, vomiting History of present illness: This is a pleasantly confused 78-year-old gentleman with a history of dementia, diabetes, GERD and hypertension and past history of coronary artery bypass grafting. He does not follow regularly with a health professional. Patient is a very poor historian with minimal yes and no responses to questions and some difficulty in following directions. Lives in an assisted living facility. He was apparently sent to the hospital after 2 episodes of dark colored emesis and nausea. Denies any abdominal discomfort but has not had a bowel movement in 3 days. We were asked to see the patient in consultation for 2 episodes of nonsustained ventricular tachycardia which upon further review appear to be artifact. Laboratory values showed initial hemoglobin 13.6 with repeat 11.8, BUN 35, creatinine 1.04. He's been seen by GI and no plans for endoscopy at this time but continued monitoring of hemoglobin. He did have an echocardiogram done in June of this year which showed normal LV systolic function with ejection fraction between 55-60%, normal diastolic filling pattern, delayed septal wall motion consistent with prior cardiac surgery, mild MR, mild TR and mild pulmonary hypertension. On examination, patient is resting comfortably in bed. He denies complaints of chest discomfort, dizziness, lightheadedness, further nausea or vomiting, and has had no palpitations. Past Medical History Past Medical History: Coronary Artery Disease (CAD), Dementia, Diabetes Mellitus, GERD/Reflux, Hypertension Additional Past Medical History / Comment(s): edema History of Any Multi-Drug Resistant Organisms: None Reported Past Surgical History: Coronary Bypass/CABG Past Psychological History: No Psychological Hx Reported Smoking Status: Former smoker Past Alcohol Use History: None Reported Past Drug Use History: None Reported - Past Family History Father Family Medical History: Unable to Obtain Medications and Allergies Home Medications Medication Instructions Recorded Confirmed Type RX: metFORMIN HCL 1,000 mg PO BID@0700,1600 07/17/17 10/14/19 History RX: Aspirin EC [Ecotrin Low Dose] 81 mg PO HS@1700 01/30/18 10/14/19 History RX: Acetaminophen Tab [Tylenol] 650 mg PO DAILY@0700 04/02/19 10/14/19 History RX: amLODIPine [Norvasc] 10 mg PO DAILY PRN 04/02/19 10/14/19 History Acetaminophen Tab [Tylenol Tab] 650 mg PO Q8H PRN 10/14/19 10/14/19 History Calcium Carbonate [Tums] 500 - 1,000 mg PO BID PRN 10/14/19 10/14/19 History Ergocalciferol [Vitamin D2] 50,000 unit PO TU@0700 10/14/19 10/14/19 History Omeprazole [PriLOSEC] 20 mg PO DAILY@0700 10/14/19 10/14/19 History RX: Insulin NPH Hum/Reg Insulin Hm 10 unit SQ AC-BRKFST@0700 10/14/19 10/14/19 History [humuLIN 70/30 Kwikpen] RX: Insulin NPH Hum/Reg Insulin Hm 20 unit SQ AC-SUPPER@1600 10/14/19 10/14/19 History [humuLIN 70/30 Kwikpen] Sucralfate [Carafate] 1 gm PO ACHS 10/14/19 10/14/19 History Allergies Allergy/AdvReac Type Severity Reaction Status Date / Time No Known Allergies Allergy Verified 10/14/19 16:33 Physical Exam Vitals: Vital Signs Temp Pulse Pulse Resp BP BP Pulse Ox 10/15/19 11:10 97.3 F L 78 16 142/71 96 10/15/19 04:59 98.1 F 84 16 151/67 95 10/14/19 20:10 98.5 F 85 16 144/66 94 L 10/14/19 18:30 85 18 140/54 96 10/14/19 18:00 84 15 144/79 96 10/14/19 17:30 82 12 132/63 93 L 10/14/19 17:00 82 11 L 135/86 91 L 10/14/19 16:00 82 12 138/57 94 L 10/14/19 15:30 81 15 142/72 96 10/14/19 15:00 79 16 128/71 95 10/14/19 14:30 80 13 131/84 98 10/14/19 14:00 86 14 131/84 97 10/14/19 13:30 88 16 135/68 96 10/14/19 13:00 82 18 148/77 98 10/14/19 12:30 85 18 136/69 96 10/14/19 12:17 97.8 F 84 18 136/69 98 Intake and Output 10/14/19 10/15/19 10/15/19 22:59 06:59 14:59 Other: Voiding Method Diaper Incontinent # Voids 1 2 2 Weight 63.503 kg PHYSICAL EXAMINATION: HEENT: Head is atraumatic, normocephalic. Pupils equal, round. Neck is supple. There is no elevated jugular venous pressure. HEART EXAMINATION: Heart sounds regular, S1 and S2 with a systolic murmur. CHEST EXAMINATION: Lungs are clear to auscultation and precussion. No chest wall tenderness is noted on palpation or with deep breathing. ABDOMEN: Soft, nontender. Bowel sounds are heard. No organomegaly noted. EXTREMITIES: 2+ peripheral pulses with no evidence of peripheral edema and no calf tenderness noted. NEUROLOGIC patient is awake, alert and oriented x1. . Results 10/15/19 07:48 10/15/19 07:48 Cardiac Enzymes 10/14/19 10/14/19 10/15/19 Range/Units 13:44 13:44 07:48 AST 28 21 (17-59) U/L Troponin I <0.012 (0.000-0.034) ng/mL Coagulation 10/14/19 Range/Units 13:44 PT 9.8 (9.0-12.0) sec APTT 23.9 (22.0-30.0) sec CBC 10/14/19 10/15/19 Range/Units 13:44 07:48 WBC 8.1 6.2 (3.8-10.6) k/uL RBC 4.25 L 3.87 L (4.30-5.90) m/uL Hgb 13.6 11.8 L (13.0-17.5) gm/dL Hct 39.1 35.1 L (39.0-53.0) % Plt Count 261 243 (150-450) k/uL Comprehensive Metabolic Panel 10/14/19 10/15/19 Range/Units 13:44 07:48 Sodium 137 137 (137-145) mmol/L Potassium 4.2 4.2 (3.5-5.1) mmol/L Chloride 102 105 (98-107) mmol/L Carbon Dioxide 25 26 (22-30) mmol/L BUN 35 H 24 H (9-20) mg/dL Creatinine 1.04 1.12 (0.66-1.25) mg/dL Glucose 162 H 152 H (74-99) mg/dL Calcium 9.4 8.7 (8.4-10.2) mg/dL AST 28 21 (17-59) U/L ALT 16 13 (4-49) U/L Alkaline Phosphatase 78 64 (38-126) U/L Total Protein 6.4 5.5 L (6.3-8.2) g/dL Albumin 3.7 3.0 L (3.5-5.0) g/dL Current Medications Generic Name Dose Route Start Last Admin Trade Name Freq PRN Reason Stop Dose Admin Acetaminophen 650 mg 10/14/19 18:10 Tylenol Tab PO Q8H PRN Fever and/ or Mild Pain Amlodipine Besylate 10 mg 10/14/19 18:10 Norvasc PO DAILY PRN SBP> 160 Insulin Aspart 10 unit 10/15/19 07:00 10/15/19 08:30 Novolog Mix 70-30 Vial SQ 10 unit AC-BRKFST@0700 RIAN Administration Insulin Aspart 20 unit 10/15/19 16:00 Novolog Mix 70-30 Vial SQ AC-SUPPER@1600 RIAN Ondansetron HCl 4 mg 10/14/19 14:36 Zofran IVP Q6HR PRN Nausea And Vomiting Pantoprazole Sodium 40 mg 10/14/19 21:00 10/15/19 08:30 Protonix IVP 40 mg BID RIAN Administration Intake and Output 10/14/19 10/15/19 10/15/19 22:59 06:59 14:59 Other: Voiding Method Diaper Incontinent # Voids 1 2 2 Weight 63.503 kg 10/15/19 07:48 10/15/19 07:48 Assessment and Plan Assessment: #1 suspected coffee-ground emesis with no recurrence since admission #2 suspected V. tach but upon further review appears to be artifact, recent echocardiogram showed normal LV systolic function #3 advanced dementia #4 hypertension #5 CAD with prior CABG Plan: From health professional perspective, there is no evidence of arrhythmia at this time. From our standpoint, no further cardiac workup is warranted at this time. We will follow the patient on an as-needed basis. Please hesitate to contact us with questions. TECHNICAL REPORT WRITER note has been reviewed, I agree with a documented findings and plan of care. Patient was seen and examined.
--- NOTE | 2019-10-15 12:47 | P.HPIM ---
History of Present Illness H&P Date: 10/15/19 Chief Complaint: hemoptysis this is 78 years old male who presented to the emergency department with vomiting blood. Patient lives in assisted living and was noted by medical caregiver that patient vomited 2 times coffee-ground emesis and patient was not to the emergency department where he did not have any further vomiting. Patient kept nothing by mouth and GI consult was obtained his initial hemoglobin in the emergency was 13 repeated improvement this morning was 11.1. Patient continued to be hemodynamically stable overnight no major events reported by nursing sta ff. Patient's currently is denying chest pain shortness breath nausea vomiting dumping dizziness lightheadedness or dysuria stated that he had that no bowel movements for the last 3 days. Patient is up-to-date on EGD and colonoscopy but not sure what time he got it to his daughter at the bedside who stated that the patient is up-to-date with his primary care physician on all his testing. The patient currently is asking for diet and feels improved. The patient is denying tobacco alcohol or drug abuse Review of Systems all 14 systems reviewed and negative except as above Past Medical History Past Medical History: Coronary Artery Disease (CAD), Dementia, Diabetes Mellitus, GERD/Reflux, Hypertension Additional Past Medical History / Comment(s): edema History of Any Multi-Drug Resistant Organisms: None Reported Past Surgical History: Coronary Bypass/CABG Past Psychological History: No Psychological Hx Reported Smoking Status: Former smoker Past Alcohol Use History: None Reported Past Drug Use History: None Reported - Past Family History Father Family Medical History: Unable to Obtain Medications and Allergies Home Medications Medication Instructions Recorded Confirmed Type metFORMIN HCL 1,000 mg PO BID@0700,1600 07/17/17 10/14/19 History Aspirin EC [Ecotrin Low Dose] 81 mg PO HS@1700 01/30/18 10/14/19 History Acetaminophen Tab [Tylenol] 650 mg PO DAILY@0700 04/02/19 10/14/19 History amLODIPine [Norvasc] 10 mg PO DAILY PRN 04/02/19 10/14/19 History Acetaminophen Tab [Tylenol Tab] 650 mg PO Q8H PRN 10/14/19 10/14/19 History Calcium Carbonate [Tums] 500 - 1,000 mg PO BID PRN 10/14/19 10/14/19 History Ergocalciferol [Vitamin D2] 50,000 unit PO TU@0700 10/14/19 10/14/19 History Insulin NPH Hum/Reg Insulin Hm 10 unit SQ AC-BRKFST@0700 10/14/19 10/14/19 History [humuLIN 70/30 Kwikpen] Insulin NPH Hum/Reg Insulin Hm 20 unit SQ AC-SUPPER@1600 10/14/19 10/14/19 History [humuLIN 70/30 Kwikpen] Omeprazole [PriLOSEC] 20 mg PO DAILY@0700 10/14/19 10/14/19 History Sucralfate [Carafate] 1 gm PO ACHS 10/14/19 10/14/19 History Allergies Allergy/AdvReac Type Severity Reaction Status Date / Time No Known Allergies Allergy Verified 10/14/19 16:33 Physical Exam Vitals: Vital Signs Temp Pulse Pulse Resp BP BP Pulse Ox 10/15/19 11:10 97.3 F L 78 16 142/71 96 10/15/19 08:00 16 10/15/19 04:59 98.1 F 84 16 151/67 95 10/14/19 20:10 98.5 F 85 16 144/66 94 L 10/14/19 18:30 85 18 140/54 96 10/14/19 18:00 84 15 144/79 96 10/14/19 17:30 82 12 132/63 93 L 10/14/19 17:00 82 11 L 135/86 91 L 10/14/19 16:00 82 12 138/57 94 L 10/14/19 15:30 81 15 142/72 96 10/14/19 15:00 79 16 128/71 95 10/14/19 14:30 80 13 131/84 98 10/14/19 14:00 86 14 131/84 97 10/14/19 13:30 88 16 135/68 96 10/14/19 13:00 82 18 148/77 98 Intake and Output 10/14/19 10/15/19 10/15/19 22:59 06:59 14:59 Other: Voiding Method Diaper Diaper Incontinent Incontinent # Voids 1 2 2 Weight 63.503 kg Gen.: in stated age, no acute distress Heart: Normal S1-S2 Lungs: Clear to auscultation bilaterally Abdomen: Soft, no tenderness, positive bowel sounds in all 4 quadrant no guarding or rebound Skin: No new rash Psych: Alert and oriented 3 Neuro: No focal deficit Results CBC & Chem 7: 10/15/19 07:48 10/15/19 07:48 Labs: Abnormal Lab Results - Last 24 Hours (Table) 10/14/19 10/14/19 10/15/19 Range/Units 13:44 13:44 07:48 RBC 4.25 L 3.87 L (4.30-5.90) m/uL Hgb 11.8 L (13.0-17.5) gm/dL Hct 35.1 L (39.0-53.0) % BUN 35 H (9-20) mg/dL Glucose 162 H (74-99) mg/dL POC Glucose (mg/dL) (75-99) mg/dL Magnesium 1.5 L (1.6-2.3) mg/dL Total Protein (6.3-8.2) g/dL Albumin (3.5-5.0) g/dL 10/15/19 10/15/19 10/15/19 Range/Units 07:48 08:29 11:13 RBC (4.30-5.90) m/uL Hgb (13.0-17.5) gm/dL Hct (39.0-53.0) % BUN 24 H (9-20) mg/dL Glucose 152 H (74-99) mg/dL POC Glucose (mg/dL) 172 H 133 H (75-99) mg/dL Magnesium (1.6-2.3) mg/dL Total Protein 5.5 L (6.3-8.2) g/dL Albumin 3.0 L (3.5-5.0) g/dL Thrombosis Risk Factor Assmnt - Choose All That Apply Any of the Below Risk Factors Present?: Yes Each Risk Factor Represents 2 Points: Patient confined to bed Each Risk Factor Represents 3 Points: Age 75 years or older Thrombosis Risk Factor Assessment Total Risk Factor Score: 5 Thrombosis Risk Factor Assessment Level: High Risk Assessment and Plan Assessment: 1. Hemoptysis. 2. Dementia. 3. Intractable nausea and vomiting, resolving. 4. Hiccup. 5.diabetes mellitus type 2. 6. Hypertension. 7. Coronary artery disease status post CABG. 8. Runs of V. tach and during the night seems to be artifact on evaluation. Long discussed with GI regarding current hemoptysis episode hemoglobin continued to be relatively stable vital signs are stable during the hospital stay no further vomiting or nausea reported I would like to address patient diet slowly and gradually and if patient is tolerating full liquid diet patient can be discharged home today to follow was GI outpatient for consideration of EGD in the future. Patient asked to follow-up with his primary care physician within 7 days. Cardiology evaluated the patient during the hospital course regarding runs of V. tach which felt to be artifact and has nothing to do with his cardiac condition patient recommended to continue cardioprotective medication and keep his appointment with cardiology on outpatient basis. Patient is stable from the medical standpoint for discharge as long as he is tolerating diet
--- NOTE | 2019-10-15 12:48 | P.DS ---
Providers Date of admission: 10/14/19 14:35 Attending physician: Hemanth Buchanan MD Consults: 10/14/19 14:34 Consult Physician Routine Consulting Provider: Anthony Kendall Consult Reason/Comments: gib Do you want consulting provider notified?: Yes 10/14/19 22:34 Consult Physician Routine Consulting Provider: Earl Stratton Consult Reason/Comments: run of v tach Do you want consulting provider notified?: Yes, Notify in am Primary care physician: [facility] Course: Long discussion with GI regarding current hemoptysis episode hemoglobin continued to be relatively stable vital signs are stable during the hospital stay no further vomiting or nausea reported I would like to address patient diet slowly and gradually and if patient is tolerating full liquid diet patient can be discharged home today to follow was GI outpatient for consideration of EGD in the future. Patient asked to follow-up with his primary care physician within 7 days. Cardiology evaluated the patient during the hospital course regarding runs of V. tach which felt to be artifact and has nothing to do with his cardiac condition patient recommended to continue cardioprotective medication and keep his appointment with cardiology on outpatient basis. Patient is stable from the medical standpoint for discharge as long as he is tolerating diet Patient Condition at Discharge: Fair Plan - Discharge Summary New Discharge Prescriptions: No Action metFORMIN HCL 1,000 mg PO BID@0700,1600 Aspirin EC [Ecotrin Low Dose] 81 mg PO HS@1700 amLODIPine [Norvasc] 10 mg PO DAILY PRN PRN Reason: SBP> 160 Acetaminophen Tab [Tylenol] 650 mg PO DAILY@0700 Calcium Carbonate [Tums] 500 - 1,000 mg PO BID PRN PRN Reason: Heartburn Acetaminophen Tab [Tylenol Tab] 650 mg PO Q8H PRN PRN Reason: Fever And/ Or Pain Ergocalciferol [Vitamin D2] 50,000 unit PO TU@0700 Omeprazole [PriLOSEC] 20 mg PO DAILY@0700 Sucralfate [Carafate] 1 gm PO ACHS Insulin NPH Hum/Reg Insulin Hm [humuLIN 70/30 Kwikpen] 20 unit SQ AC- SUPPER@1600 Insulin NPH Hum/Reg Insulin Hm [humuLIN 70/30 Kwikpen] 10 unit SQ AC- BRKFST@0700 Discharge Medication List metFORMIN HCL 1,000 mg PO BID@0700,1600 07/17/17 [History] Aspirin EC [Ecotrin Low Dose] 81 mg PO HS@1700 01/30/18 [History] Acetaminophen Tab [Tylenol] 650 mg PO DAILY@0700 04/02/19 [History] amLODIPine [Norvasc] 10 mg PO DAILY PRN 04/02/19 [History] Acetaminophen Tab [Tylenol Tab] 650 mg PO Q8H PRN 10/14/19 [History] Calcium Carbonate [Tums] 500 - 1,000 mg PO BID PRN 10/14/19 [History] Ergocalciferol [Vitamin D2] 50,000 unit PO TU@0700 10/14/19 [History] Insulin NPH Hum/Reg Insulin Hm [humuLIN 70/30 Kwikpen] 10 unit SQ AC-BRKFST@0700 10/14/19 [History] Insulin NPH Hum/Reg Insulin Hm [humuLIN 70/30 Kwikpen] 20 unit SQ AC-SUPPER@1600 10/14/19 [History] Omeprazole [PriLOSEC] 20 mg PO DAILY@0700 10/14/19 [History] Sucralfate [Carafate] 1 gm PO ACHS 10/14/19 [History] Follow up Appointment(s)/Referral(s): Socrates Finch MD [Primary Care Provider] - 1-2 days
== END 2019-10-15 15:20 | disposition home or self-care (01) ==
LOC: EC 12:14 → 5NMEDONC 14:35
PROVIDERS: ADMIT Internal Medicine; ATTEND Internal Medicine
DX: K92.0 Hematemesis (principal); E11.9 Type 2 diabetes mellitus without complications; F03.90 Unspecified dementia, unspecified severity, without behavioral disturbance, psychotic disturbance, mood disturbance, and anxiety; I10 Essential (primary) hypertension; I25.10 Atherosclerotic heart disease of native coronary artery without angina pectoris; I27.20 Pulmonary hypertension, unspecified; Z79.4 Long term (current) use of insulin; Z79.82 Long term (current) use of aspirin; Z79.899 Other long term (current) drug therapy; Z87.891 Personal history of nicotine dependence; Z95.1 Presence of aortocoronary bypass graft; K21.9 Gastro-esophageal reflux disease without esophagitis
CPT/HCPCS: 96361 ×3; 96376 ×2; 96374; 96375; 99285; 36415; 93005; 86900; 86901; 80053 ×2; 82550; 83735; 84484; 85025 ×2; 85610; 85730; 86850; G0378 ×2; J2405; C9113 ×2

== ENCOUNTER 2019-10-24 19:48 | Emergency (ER) | payer MEDICARE ==
[2019-10-24 20:00] VITALS: RESP 18
[2019-10-24] MEDS ORDERED: BENZONATATE 100 MG CAP PO STA (20:17)
[2019-10-24] MEDS ORDERED: MAG HYDROX/AL HYDROX/SIMETH 30 ML, HYOSCYAMINE ELIXIR 10 ML, LIDOCAINE VISCOUS 2% 10 ML PO STA ×3 (20:17)
[2019-10-24] MEDS ORDERED: chlorproMAZINE 25 MG/ML 2 ML AMP IVP STA (20:17)
[2019-10-24] MEDS ORDERED: chlorproMAZINE 25 MG/ML 2 ML AMP IM STA ×3 (20:17→22:01)
--- NOTE | 2019-10-24 20:43 | ED ---
Recheck HPI - General Chief Complaint: Abdominal Pain Stated Complaint: Hiccups Time Seen by Provider: 10/24/19 20:17 Source: EMS, RN notes reviewed, old records reviewed Mode of arrival: EMS Limitations: no limitations - History of Present Illness Initial Comments: This is a 78-year-old male here for evaluation patient presents to ER today for evaluation of vomiting hiccups and vomiting possible blood. Patient himself is a poor historian secondary to dementia history obtained from charting records as well as patient's family member who is at bedside. He has several episode of vomiting here in the ER difficult to ascertain whether bloodier knots. There is dark colored in nature. Per patient's recent hospital admission for same about a month ago no significant findings were found. No change in medications. Patient currently is without complaint MD Complaint: other (Recheck regarding hiccups and vomiting) -: days(s) Returns Today for: persistent/worsening pain related to initial visit Symptoms Since Prior Visit: no new symptoms (Worsening headache) Associated Symptoms: none - Related Data Home Medications Medication Instructions Recorded Confirmed metFORMIN HCL 1,000 mg PO BID@0700,1600 07/17/17 10/14/19 Aspirin EC [Ecotrin Low Dose] 81 mg PO HS@1700 01/30/18 10/14/19 Acetaminophen Tab [Tylenol] 650 mg PO DAILY@0700 04/02/19 10/14/19 amLODIPine [Norvasc] 10 mg PO DAILY PRN 04/02/19 10/14/19 Acetaminophen Tab [Tylenol Tab] 650 mg PO Q8H PRN 10/14/19 10/14/19 Calcium Carbonate [Tums] 500 - 1,000 mg PO BID PRN 10/14/19 10/14/19 Ergocalciferol [Vitamin D2] 50,000 unit PO TU@0700 10/14/19 10/14/19 Insulin NPH Hum/Reg Insulin Hm 10 unit SQ AC-BRKFST@0700 10/14/19 10/14/19 [humuLIN 70/30 Kwikpen] Insulin NPH Hum/Reg Insulin Hm 20 unit SQ AC-SUPPER@1600 10/14/19 10/14/19 [humuLIN 70/30 Kwikpen] Omeprazole [PriLOSEC] 20 mg PO DAILY@0700 10/14/19 10/14/19 Sucralfate [Carafate] 1 gm PO ACHS 10/14/19 10/14/19 Allergies Allergy/AdvReac Type Severity Reaction Status Date / Time No Known Allergies Allergy Verified 10/14/19 16:33 Review of Systems ROS Statement: Those systems with pertinent positive or pertinent negative responses have been documented in the HPI. ROS Other: All systems not noted in ROS Statement are negative. Past Medical History Past Medical History: Coronary Artery Disease (CAD), Dementia, Diabetes Mellitus, GERD/Reflux, Hypertension Additional Past Medical History / Comment(s): edema History of Any Multi-Drug Resistant Organisms: None Reported Past Surgical History: Coronary Bypass/CABG Past Psychological History: No Psychological Hx Reported Smoking Status: Former smoker Past Alcohol Use History: None Reported Past Drug Use History: None Reported - Past Family History Father Family Medical History: Unable to Obtain General Exam Limitations: no limitations General appearance: alert, in no apparent distress Head exam: Present: atraumatic, normocephalic, normal inspection Eye exam: Present: normal appearance, PERRL, EOMI. Absent: scleral icterus, conjunctival injection, periorbital swelling ENT exam: Present: normal exam, mucous membranes moist Neck exam: Present: normal inspection. Absent: tenderness, meningismus, lymphadenopathy Respiratory exam: Present: normal lung sounds bilaterally. Absent: respiratory distress, wheezes, rales, rhonchi, stridor Cardiovascular Exam: Present: regular rate, normal rhythm, normal heart sounds. Absent: systolic murmur, diastolic murmur, rubs, gallop, clicks GI/Abdominal exam: Present: soft, normal bowel sounds. Absent: distended, tenderness, guarding, rebound, rigid Extremities exam: Present: normal inspection, full ROM, normal capillary refill. Absent: tenderness, pedal edema, joint swelling, calf tenderness Back exam: Present: normal inspection Neurological exam: Present: alert, oriented X3, CN II-XII intact Psychiatric exam: Present: normal affect, normal mood Skin exam: Present: warm, dry, intact, normal color. Absent: rash Course Vital Signs 10/24/19 19:50 Temperature 98.3 F Pulse Rate 82 Respiratory 18 Rate Blood Pressure 126/73 O2 Sat by Pulse 96 Oximetry - Reevaluation(s) Reevaluation #1: 10/24/19 22:00 Clinical record is reviewed Reevaluation #2: 10/24/19 22:00 Vomitus in the room is not significantly consistent with GI or coffee-ground emesis Medical Decision Making - Medical Decision Making 78 male to the ER for evaluation patient has had increase in hemoglobin compared to prior visit. No significant family here vital signs are stable patient will be discharged - Lab Data Result diagrams: 10/24/19 21:22 Lab Results 10/24/19 Range/Units 21:22 WBC 12.7 H (3.8-10.6) k/uL RBC 4.51 (4.30-5.90) m/uL Hgb 13.3 (13.0-17.5) gm/dL Hct 40.4 (39.0-53.0) % MCV 89.6 (80.0-100.0) fL MCH 29.5 (25.0-35.0) pg MCHC 33.0 (31.0-37.0) g/dL RDW 14.0 (11.5-15.5) % Plt Count 307 (150-450) k/uL Neutrophils % 79 % Lymphocytes % 13 % Monocytes % 5 % Eosinophils % 1 % Basophils % 0 % Neutrophils # 10.0 H (1.3-7.7) k/uL Lymphocytes # 1.6 (1.0-4.8) k/uL Monocytes # 0.7 (0-1.0) k/uL Eosinophils # 0.1 (0-0.7) k/uL Basophils # 0.0 (0-0.2) k/uL Disposition Clinical Impression: Hiccups, Nausea & vomiting Disposition: HOME SELF-CARE Condition: Good Instructions (If sedation given, give patient instructions): Hiccups (ED), Acute Nausea and Vomiting (ED) Is patient prescribed a controlled substance at d/c from ED?: No Referrals: Hari Tavarez MD [Primary Care Provider] - 1-2 days
[2019-10-24] MEDS ORDERED: PANTOPRAZOLE 40 MG/10 ML VIAL IVP STA (21:00)
[2019-10-24] MEDS ORDERED: SODIUM CHLORIDE 0.9% 1,000 ML IV STA (21:00)
[2019-10-24] MEDS ORDERED: ONDANSETRON 4 MG/2 ML VIAL IVP STA (21:00)
[2019-10-24 21:55] LABS: Basophils % (A) 0 %; Eosinophils # (A) 0.1 k/uL (0-0.7); Eosinophils % (A) 1 %; HCT 40.4 % (39.0-53.0); HGB 13.3 gm/dL (13.0-17.5); Lymphocytes # (A) 1.6 k/uL (1.0-4.8); Lymphocytes % (A) 13 %; MCH 29.5 pg (25.0-35.0); MCV 89.6 fL (80.0-100.0); Mean Platelet Volume 8.6; Monocytes # (A) 0.7 k/uL (0-1.0); Monocytes % (A) 5 %; Neutrophils % (A) 79 %; Platelet Count 307 k/uL (150-450); RBC 4.51 m/uL (4.30-5.90); WBC 12.7 k/uL (3.8-10.6)
[2019-10-24 22:06] LABS: INR 0.9 (<1.2)
[2019-10-24 22:08] LABS: Albumin 3.8 g/dL (3.5-5.0); Calcium 9.6 mg/dL (8.4-10.2); Magnesium 1.6 mg/dL (1.6-2.3); Potassium 4.2 mmol/L (3.5-5.1); Total Bilirubin 0.5 mg/dL (0.2-1.3); Total Protein 6.7 g/dL (6.3-8.2)
[2019-10-24 22:31] VITALS: BP 165/77; PULSE 92; TEMP 97.1
[2019-10-24] MEDS ORDERED: LORazepam 2 MG/ML INJ IV STA (22:59)
== END 2019-10-24 23:47 | disposition home or self-care (01) ==
LOC: EC 19:48 → EEVIPCON 19:48 → EC 23:47
DX: R06.6 Hiccough (principal); R11.2 Nausea with vomiting, unspecified; R10.9 Unspecified abdominal pain; I25.10 Atherosclerotic heart disease of native coronary artery without angina pectoris; E11.9 Type 2 diabetes mellitus without complications; I10 Essential (primary) hypertension; K21.9 Gastro-esophageal reflux disease without esophagitis; F03.90 Unspecified dementia, unspecified severity, without behavioral disturbance, psychotic disturbance, mood disturbance, and anxiety; Z79.4 Long term (current) use of insulin; Z79.82 Long term (current) use of aspirin; Z79.899 Other long term (current) drug therapy; Z95.1 Presence of aortocoronary bypass graft; Z87.891 Personal history of nicotine dependence
CPT/HCPCS: 36415; 86900; 86901; 80053; 83605; 83690; 83735; 85025; 85610; 85730; 86850; 99284; 96374; 96375 ×2; 96361; 96372; J2060; J3230; J2405; C9113

== ENCOUNTER 2022-01-01 09:33 | Inpatient (IN) | payer MEDICARE ==
[2022-01-01] MEDS ORDERED: SODIUM CHLORIDE 0.9% 1,000 ML IV STA (09:37)
[2022-01-01 09:42] LABS: Glucose,Whole Blood 82 mg/dL (75-99)
--- NOTE | 2022-01-01 09:56 | CT ---
EXAMINATION TYPE: CT brain wo con for TPA DATE OF EXAM: 01/01/2022 COMPARISON: 06/26/19 HISTORY: AMS CT DLP: 1047.[address] of the brain was performed. The ventricles, basal cisterns and sulci overlying the cerebral convexities demonstrate mild enlargem ent. There is no evidence for intracranial hemorrhage or sulcal effacement. There is decreased attenuation about the periventricular white matter and deep white matter of both c erebral hemispheres, compatible with chronic small vessel ischemia. Differential diagnosis does inclu de demyelination. No mass effects are seen.No midline shift. Osseous calvarium is intact. If symptoms persist consider MRI. IMPRESSION: 1. Age related atrophic and chronic small vessel ischemic change without acute intracranial process s een at this time.
--- NOTE | 2022-01-01 10:05 | ED ---
General Adult HPI - General Chief complaint: Altered Mental Status Stated complaint: AMS Time Seen by Provider: 01/01/22 09:37 Source: EMS, RN notes reviewed, old records reviewed Mode of arrival: EMS Limitations: altered mental status - History of Present Illness Initial comments: 81-year-old male with acute confusion. Baseline dementia and patient is nonambulatory at baseline. He apparently had been eating breakfast and became unresponsive or minimally responsive. He was not speaking. He does have history of dementia but is normally able to converse. Patient was transported by EMS with concern for CVA. His symptoms began at 0 8:30. Patient is able to answer some simple questions at the time of arrival. - Related Data Home Medications Medication Instructions Recorded Confirmed Aspirin EC [Ecotrin Low Dose] 81 mg PO HS@1600 01/30/18 01/01/22 amLODIPine [Norvasc] 10 mg PO DAILY PRN 04/02/19 01/01/22 Insulin NPH Hum/Reg Insulin Hm 10 unit SQ AC-BRKFST@0700 10/14/19 01/01/22 [humuLIN 70/30 Kwikpen] Insulin NPH Hum/Reg Insulin Hm 18 unit SQ AC-SUPPER@1600 10/14/19 01/01/22 [humuLIN 70/30 Kwikpen] Omeprazole [PriLOSEC] 20 mg PO DAILY@0700 10/14/19 01/01/22 Sucralfate [Carafate] 1 gm PO BID@0700,1600 10/14/19 01/01/22 Acetaminophen Tab [Tylenol Tab] 500 mg PO Q4H PRN 01/01/22 01/01/22 Ascorbic Acid [Vitamin C] 500 mg PO DAILY@0700 01/01/22 01/01/22 Cholecalciferol (Vitamin D3) 125 mcg PO DAILY@0700 01/01/22 01/01/22 [Vitamin D3 (125 MCG = 5,000 IU)] Zinc Sulfate [Orazinc] 220 mg PO DAILY@0700 01/01/22 01/01/22 guaiFENesin [guaiFENesin Oral 2 - 4 tsp PO Q4H PRN 01/01/22 01/01/22 Solution] metFORMIN HCL 500 mg PO HS@1600 01/01/22 01/01/22 tiZANidine [Zanaflex] 2 mg PO DAILY@0700 01/01/22 01/01/22 traMADol-ACETAMINOP 37.5-325MG 2 tab PO BID@0700,1600 01/01/22 01/01/22 [Ultracet] Allergies Allergy/AdvReac Type Severity Reaction Status Date / Time No Known Allergies Allergy Verified 01/01/22 09:40 Review of Systems ROS Statement: Those systems with pertinent positive or pertinent negative responses have been documented in the HPI. ROS Other: All systems not noted in ROS Statement are negative. Past Medical History Past Medical History: Coronary Artery Disease (CAD), Dementia, Diabetes Mellitu s, GERD/Reflux, Hypertension Additional Past Medical History / Comment(s): edema History of Any Multi-Drug Resistant Organisms: None Reported Past Surgical History: Coronary Bypass/CABG Past Psychological History: No Psychological Hx Reported Smoking Status: Unknown if ever smoked Past Alcohol Use History: None Reported Past Drug Use History: None Reported - Past Family History Father Family Medical History: Unable to Obtain General Exam Limitations: altered mental status General appearance: alert, in no apparent distress Head exam: Present: atraumatic, normocephalic Eye exam: Present: normal appearance, PERRL ENT exam: Present: mucous membranes dry Neck exam: Present: normal inspection. Absent: tenderness, meningismus Respiratory exam: Present: normal lung sounds bilaterally. Absent: respiratory distress, wheezes Cardiovascular Exam: Present: regular rate, normal rhythm GI/Abdominal exam: Present: soft. Absent: distended, tenderness Extremities exam: Present: normal inspection, normal capillary refill. Absent: pedal edema Neurological exam: Present: alert, CN II-XII intact, motor sensory deficit. Absent: oriented X3 Psychiatric exam: Present: flat affect Skin exam: Present: warm, dry, intact. Absent: cyanosis, diaphoretic Course Vital Signs 01/01/22 01/01/22 01/01/22 09:36 10:00 10:15 Temperature 97.3 F L Pulse Rate 65 67 69 Respiratory 16 18 18 Rate Blood Pressure 160/82 175/82 174/86 O2 Sat by Pulse 99 98 98 Oximetry 01/01/22 01/01/22 10:30 11:35 Temperature 97.6 F Pulse Rate 70 70 Respiratory 18 16 Rate Blood Pressure 174/83 164/84 O2 Sat by Pulse 98 98 Oximetry - Reevaluation(s) Reevaluation #1: 01/01/22 [address] Marino patient not a TPA candidate. Recommends medical management. EKG Findings - EKG Comments: EKG Findings:: EKG: Sinus rhythm ventricular rate 67, AR interval 184, QRS duration [address] segment elevation Medical Decision Making - Medical Decision Making 81-year-old male presenting with altered level consciousness and aphasia. Upon arrival the patient is a phasic with only very minimal words. This does improve throughout his time in the emergency department. His daughter who is at baseline states that he has had episodes similar to this in the past. Patient was evaluated as a suspected stroke. Head CT and CT angiography were performed. As well as laboratory testing. The CMP is pending. His CBC is unremarkable. I did give the patient IV fluid and aspirin. He will be admitted for further evaluation treatment. Case discussed with Dr. Hardy who will admit. - Lab Data Result diagrams: 01/01/22 10:12 Lab Results 01/01/22 01/01/22 01/01/22 Range/Units 09:40 10:12 10:12 WBC 6.2 (3.8-10.6) k/uL RBC 4.25 L (4.30-5.90) m/uL Hgb 13.4 (13.0-17.5) gm/dL Hct 41.0 (39.0-53.0) % MCV 96.4 (80.0-100.0) fL MCH 31.5 (25.0-35.0) pg MCHC 32.6 (31.0-37.0) g/dL RDW 13.7 (11.5-15.5) % Plt Count 245 (150-450) k/uL MPV 8.6 Neutrophils % 65 % Lymphocytes % 22 % Monocytes % 6 % Eosinophils % 3 % Basophils % 1 % Neutrophils # 4.0 (1.3-7.7) k/uL Lymphocytes # 1.4 (1.0-4.8) k/uL Monocytes # 0.4 (0-1.0) k/uL Eosinophils # 0.2 (0-0.7) k/uL Basophils # 0.0 (0-0.2) k/uL PT 10.7 (9.0-12.0) sec INR 1.0 (<1.2) APTT 24.4 (22.0-30.0) sec POC Glucose (mg/dL) 82 (75-99) mg/dL POC Glu Sizing Machine Operator ID [place] Urine Color Urine Appearance (Clear) Urine pH (5.0-8.0) Ur Specific [place] (1.001-1.035) Urine Protein (Negative) Urine Glucose (UA) (Negative) Urine Ketones (Negative) Urine Blood (Negative) Urine Nitrite (Negative) Urine Bilirubin (Negative) Urine Urobilinogen (<2.0) mg/dL Ur Leukocyte Esterase (Negative) 01/01/22 Range/Units 12:19 WBC (3.8-10.6) k/uL RBC (4.30-5.90) m/uL Hgb (13.0-17.5) gm/dL Hct (39.0-53.0) % MCV (80.0-100.0) fL MCH (25.0-35.0) pg MCHC (31.0-37.0) g/dL RDW (11.5-15.5) % Plt Count (150-450) k/uL MPV Neutrophils % % Lymphocytes % % Monocytes % % Eosinophils % % Basophils % % Neutrophils # (1.3-7.7) k/uL Lymphocytes # (1.0-4.8) k/uL Monocytes # (0-1.0) k/uL Eosinophils # (0-0.7) k/uL Basophils # (0-0.2) k/uL PT (9.0-12.0) sec INR (<1.2) APTT (22.0-30.0) sec POC Glucose (mg/dL) (75-99) mg/dL POC Glu Sizing Machine Operator ID Urine Color Light Yellow Urine Appearance Clear (Clear) Urine pH 7.0 (5.0-8.0) Ur Specific [place] 1.025 (1.001-1.035) Urine Protein Negative (Negative) Urine Glucose (UA) Negative (Negative) Urine Ketones Negative (Negative) Urine Blood Negative (Negative) Urine Nitrite Negative (Negative) Urine Bilirubin Negative (Negative) Urine Urobilinogen <2.0 (<2.0) mg/dL Ur Leukocyte Esterase Negative (Negative) Disposition Clinical Impression: Weakness, Altered mental status, Aphasia Disposition: ADMITTED IP TO THIS [facility] Condition: Stable Is patient prescribed a controlled substance at d/c from ED?: No Referrals: Hari Tavarez MD [Primary Care Provider] - 1-2 days Decision to Admit Reason: Admit from EC Decision Date: 01/01/22 Decision Time: 12:46
[2022-01-01 10:18] LABS: Basophils % (A) 1 %; Eosinophils # (A) 0.2 k/uL (0-0.7); Eosinophils % (A) 3 %; HGB 13.4 gm/dL (13.0-17.5); Lymphocytes # (A) 1.4 k/uL (1.0-4.8); Lymphocytes % (A) 22 %; MCH 31.5 pg (25.0-35.0); MCHC 32.6 g/dL (31.0-37.0); MCV 96.4 fL (80.0-100.0); Mean Platelet Volume 8.6; Monocytes # (A) 0.4 k/uL (0-1.0); Monocytes % (A) 6 %; Neutrophils % (A) 65 %; Platelet Count 245 k/uL (150-450); RBC 4.25 m/uL (4.30-5.90); RDW 13.7 % (11.5-15.5); WBC 6.2 k/uL (3.8-10.6)
[2022-01-01 10:28] LABS: Partial Thromboplastin Time 24.4 sec (22.0-30.0); Prothrombin Time 10.7 sec (9.0-12.0)
--- NOTE | 2022-01-01 10:32 | CT ---
EXAMINATION TYPE: CT angio head neck DATE OF EXAM: 01/01/2022 HISTORY: Altered mental status COMPARISON: Nonenhanced CT brain performed earlier same day CT DLP: 323.1 mGycm. Automated Exposure Control for Dose Reduction was Utilized. TECHNIQUE: CTA scan of the neck is performed with IV Contrast, patient injected with 65 mL of Isovue 370, axial images are obtained, coronal and sagittal reformatted images are reviewed. 3D reconstruct ed images are created on an independent workstation and reviewed. FINDINGS: Carotid/Vascular Structures: Scattered arterial atherosclerotic calcifications. Severe stenosis of th e origin of the right vertebral artery yet patent distally. Severe stenosis of the right vertebral ar min within the right foramen transversarium of C2 yet patent distally. Dense atherosclerotic calcifi cation of the V4 segment of the left vertebral artery yet patent distally. Mild stenosis of the origi n of the left vertebral artery yet patent distally. Significant atherosclerotic calcifications of the superior aspect of the right common carotid artery extending into the proximal portions of the right internal and external carotid arteries causing merlyn re stenosis (about 90% at the origin of the right external carotid artery and 65% of the origin of th e right internal carotid artery yet patent distally. Markedly atherosclerotic calcifications the cave rnous portions of the internal carotid arteries yet patent distally. 50% stenosis of the proximal portion of the left internal carotid artery by a densely calcified ather omatous plaque yet patent distally. Severe (more than 90%) stenosis of the proximal portion of the le ft external carotid artery yet patent distally. Bovine aortic arch. Reduced caliber of the basilar ar min. Bilateral -type [employer]. Patent remainder of the visualized neck and intracranial arteries. Other: No intracranial abnormal enhancement. Degenerative changes of the cervical spine. IMPRESSION: No arterial occlusion or dissection. Multiple segments of atherosclerotic changes and arterial stenos is in the neck and intracranial arteries as described above. Small acute or hyperacute infarct cannot be excluded. Further MRI with DWI assessment can be consider ed if clinically required.
--- NOTE | 2022-01-01 10:34 | XR ---
EXAMINATION TYPE: XR chest 1V portable DATE OF EXAM: 01/01/2022 COMPARISON: 06/26/2019 HISTORY: Altered mental status TECHNIQUE: Single frontal view of the chest is obtained. FINDINGS: Limited inspiration with postsurgical changes. Diffuse osteopenia. No pneumothorax. Subseg mental basilar changes seen. IMPRESSION: Basilar atelectasis versus early infiltrate.
[2022-01-01] MEDS ORDERED: ASPIRIN 325 MG TAB PO STA (10:52)
[2022-01-01 12:28] LABS: Appearance,Urine Clear (Clear); Bilirubin,Urine Negative (Negative); Blood,Urine Negative (Negative); Color,Urine Light Yellow; Glucose,Urine (UA) Negative (Negative); Ketones,Urine Negative (Negative); Leukocyte Esterase,Urine Negative (Negative); Nitrite,Urine Negative (Negative); Protein,Urine Negative (Negative); Specific Gravity,Urine 1.025 (1.001-1.035); Urobilinogen,Urine <2.0 mg/dL (<2.0)
[2022-01-01] MEDS ORDERED: NALOXONE 0.4 MG/ML 1 ML VIAL IV PRN (12:42)
[2022-01-01] MEDS ORDERED: ONDANSETRON 4 MG/2 ML VIAL IVP PRN (12:55)
[2022-01-01] MEDS ORDERED: ACETAMINOPHEN TAB 325 MG TAB PO PRN (12:55)
[2022-01-01] MEDS ORDERED: CALCIUM CARBONATE 500 MG CHEWABLE PO PRN (12:55)
[2022-01-01] MEDS ORDERED: LACTULOSE 20 GM/30 ML CUP PO PRN (12:55)
[2022-01-01] MEDS ORDERED: LORazepam 0.5 MG TAB PO PRN (12:55)
[2022-01-01] MEDS ORDERED: MELATONIN 3 MG TABLET PO PRN (12:55)
[2022-01-01] MEDS ORDERED: amLODIPine 10 MG TAB PO PRN (12:57)
--- NOTE | 2022-01-01 14:42 | P.HPIM ---
History of Present Illness H&P Date: 01/01/22 Chief Complaint: Decreased responsiveness This is a pleasant 81-year-old patient who follows with Dr. Tavarez. Chronic stable medical conditions include COPD, dementia, diabetes, GERD, hypertension and prior history of coronary bypass., Baseline tremors History is obtained by Dr. Buchanan at the bedside. Resident of [facility] [place]. Has a walker but normally uses a wheelchair. At her baseline he does recognize his daughter and the caregivers. Able to feed himself. Does have a diaper. Today while having breakfast patient became less responsive started stating out. No shaking episode was noted. No frothing. Patient does get these episodes occasionally but this tends more protracted period lasted for a few more minutes. Had a baseline patient is incontinent. Patient able to answer simple questions for me. No prior history of seizure or head injury Review of systems: GEN.: None EYES: None HEENT: Decreased hearing NECK: None RESPIRATORY: None CARDIOVASCULAR: None GASTROINTESTINAL: None GENITOURINARY: Incontinent] MUSCULOSKELETAL: Arthritis in joints LYMPHATICS: None HEMATOLOGICAL: None PSYCHIATRY: Forgetful NEUROLOGICAL: Does use a wheelchair Past medical history to include: CAD with bypass, dementia, diabetes, GERD, hypertension, does use a wheelchair Social history: Does use a wheelchair. No history of smoking or alcohol. Lives at [facility]. Family history: Reviewed, noncontributory to presentation Physical examination: VITAL SIGNS: 97.3, 65, 16, 160/82, 99% room air GENERAL: BMI 20.8 propped up in bed awake, 100 distress. EYES: Pupils equal. Conjunctiva normal. HEENT: External appearance of nose and ears normal, oral cavity grossly normal. NECK: JVD not raised; masses not palpable. HEART: First and second heart sounds are normal; no edema. LUNGS: Respiratory rate normal; clear to auscultation. ABDOMEN: Soft, nontender, liver spleen not palpable, no masses palpable. PSYCH: Patient able to answer only very simple questionsl. MUSCULOSKELETAL:No Clubbing/cyanosis;muscles-grossly intact. Evidence of OA in the joints NEUROLOGICAL: Cranial nerves grossly intact; no facial asymmetry, power and sensation grossly intact. Tremors LYMPHATICS: No lymph nodes palpable in the axilla and neck INVESTIGATIONS, reviewed in the clinical context: White count 6.2 hemoglobin 13.4 platelets 245 UA: Negative EKG tracing personally reviewed by me-normal sinus rhythm. Rate [address] segment changes Chest x-ray film personally reviewed by me-lung atkins clear CT angiography of the brain: Multiple segments of atherosclerotic changes and arterial stenosis in the neck and intracranial arteries. Small acute/hyperacute infarct cannot be excluded. Computed tomography scan of the brain: Age-related changes. Nothing acute reported Assessment and plan: -Patient was sitting at breakfast when he started stating out. No convulsive activity reported. Patient had some small episodes like this before but never this long. No change in speech or vision reported. No focal weakness. Consider underlying epilepsy. Lacunar infarct to be ruled out -CAD with a prior history of coronary bypass Aspirin 81 mg daily at bedtime. -Diabetes mellitus type 2 chronically on insulin Continue with Novolin 70/30. 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 No significant stenosis of the internal carotid. Neuro Checks. Seizure precautions. EEG. Home medications resumed.. Subcu Lovenox. Fall precautions. Neurology consulted. Care was discussed with the patient's daughter the bedside questions answered. Past Medical History Past Medical History: Coronary Artery Disease (CAD), Dementia, Diabetes Mellitus, GERD/Reflux, Hypertension Additional Past Medical History / Comment(s): edema History of Any Multi-Drug Resistant Organisms: None Reported Past Surgical History: Coronary Bypass/CABG Past Psychological History: No Psychological Hx Reported Smoking Status: Unknown if ever smoked Past Alcohol Use History: None Reported Past Drug Use History: None Reported - Past Family History Father Family Medical History: Unable to Obtain Medications and Allergies Home Medications Medication Instructions Recorded Confirmed Type Aspirin EC [Ecotrin Low Dose] 81 mg PO HS@1600 01/30/18 01/01/22 History amLODIPine [Norvasc] 10 mg PO DAILY PRN 04/02/19 01/01/22 History Insulin NPH Hum/Reg Insulin Hm 10 unit SQ AC-BRKFST@0700 10/14/19 01/01/22 Histo ry [humuLIN 70/30 Kwikpen] Insulin NPH Hum/Reg Insulin Hm 18 unit SQ AC-SUPPER@1600 10/14/19 01/01/22 History [humuLIN 70/30 Kwikpen] Omeprazole [PriLOSEC] 20 mg PO DAILY@0700 10/14/19 01/01/22 History Sucralfate [Carafate] 1 gm PO BID@0700,1600 10/14/19 01/01/22 History Acetaminophen Tab [Tylenol Tab] 500 mg PO Q4H PRN 01/01/22 01/01/22 History Ascorbic Acid [Vitamin C] 500 mg PO DAILY@0700 01/01/22 01/01/22 History Cholecalciferol (Vitamin D3) 125 mcg PO DAILY@0700 01/01/22 01/01/22 History [Vitamin D3 (125 MCG = 5,000 IU)] Zinc Sulfate [Orazinc] 220 mg PO DAILY@0700 01/01/22 01/01/22 History guaiFENesin [guaiFENesin Oral 2 - 4 tsp PO Q4H PRN 01/01/22 01/01/22 History Solution] metFORMIN HCL 500 mg PO HS@1600 01/01/22 01/01/22 History tiZANidine [Zanaflex] 2 mg PO DAILY@0700 01/01/22 01/01/22 History traMADol-ACETAMINOP 37.5-325MG 2 tab PO BID@0700,1600 01/01/22 01/01/22 History [Ultracet] Allergies Allergy/AdvReac Type Severity Reaction Status Date / Time No Known Allergies Allergy Verified 01/01/22 09:40 Physical Exam Vitals: Vital Signs Temp Pulse Resp BP Pulse Ox 01/01/22 11:35 97.6 F 70 16 164/84 98 01/01/22 10:30 70 18 174/83 98 01/01/22 10:15 69 18 174/86 98 01/01/22 10:00 67 18 175/82 98 01/01/22 09:36 97.3 F L 65 16 160/82 99 Intake and Output 12/31/21 01/01/22 01/01/22 22:59 06:59 14:59 Other: Weight 53.388 kg Results CBC & Chem 7: 01/01/22 10:12 Labs: Abnormal Lab Results - Last 24 Hours (Table) 01/01/22 Range/Units 10:12 RBC 4.25 L (4.30-5.90) m/uL
[2022-01-01 14:44] LABS: Albumin 3.5 g/dL (3.5-5.0); Calcium 8.8 mg/dL (8.4-10.2); Potassium 4.3 mmol/L (3.5-5.1); Total Bilirubin 0.4 mg/dL (0.2-1.3); Total Protein 6.4 g/dL (6.3-8.2)
[2022-01-01] MEDS: ENOXAPARIN 40 MG/0.4 ML SYRINGE SQ SCH (16:05)
[2022-01-01] MEDS: SODIUM CHLORIDE 0.9% 1,000 ML IV SCH (17:37)
[2022-01-01 18:51] LABS: Glucose,Whole Blood 80 mg/dL (75-99)
[2022-01-01] MEDS: INSULIN ASPART (NovoLOG) 100 UNIT/ML VIAL SQ SCH (18:52)
[2022-01-01] MEDS: metFORMIN 500 MG TAB PO SCH (19:43)
[2022-01-01] MEDS: traMADol-ACETAMINOP 37.5-325MG 1 EACH TAB PO SCH (20:12)
[2022-01-01 21:28] LABS: Glucose,Whole Blood 151 mg/dL (75-99)
[2022-01-01] MEDS: INSULN ASP PRT/INSULIN ASPART 100 UNIT/ML 10 ML VIAL SQ SCH (22:01)
[2022-01-02] MEDS ORDERED: CLOPIDOGREL 75 MG TAB PO STA (00:02)
--- NOTE | 2022-01-02 00:05 | P.CNNES ---
History of Present Illness Consult date: 01/01/22 Requesting physician: Saw Varela Reason for Consult: Altered mental status, aphasia. History of Present Illness: Patient is a 81-year-old right-handed male who came to the hospital by ambulance this morning at 9:33 AM. Patient lives in [facility] for last 3 years. As per EMS flow sheet they were called by the shelter staff at 8:46 AM for episode of unresponsiveness. It was reported by staff, that patient came to have his breakfast as usual. While having breakfast patient became unresp onsive. His daughter states that he went into a blank stare, did not have any fall, convulsive activity or tongue bite. He usually wears diapers. When EMS arrived, patient was alert and laying supine on a couch. He was pale, cool and diaphoretic. Patient responded to his name and will look around, but he is unable to communicate or follow simple commands. Patient's EKG shows normal sinus rhythm and blood glucose was 138. During transport, patient was continued to be alert but unable to communicate or follow simple commands. Patient's pupils were still pinpoint. Patient's vitals at the scene was blood pressure 145/72 pulse rate 69, respiration 20 saturation 97%. There was no report of facial droop or focal paralysis. Patient's daughter states that this episode of unresponsiveness lasted for only a few minutes. No prior history of seizures. Patient's daughter believes that he is back to his baseline at this time. Patient's daughter states that patient does have moderate dementia for last 5 years or more. He is wheelchair bound for last 2 years, prior to that he used to walk with a walker but was unstable with got worse and therefore became wheelchair-bound. He has been living in this shelter for last 3 years. He has severe arthritis of the lower back. Patient states that he feels "pretty good". Patient not able to provide any other history. Patient's blood test shows normal CBC PT/PTT, normal chem 20, troponin and a UA. Patient's last hemoglobin A1c 6.9 on 06/26/2019. Patient had a computed tomography scan of head, which revealed age-related atrophic and chronic small vessel ischemic changes without acute intracranial process seen at this time. I personally reviewed computed tomography scan of the head. There is evidence of significant cortical atrophy as well as secondary ventricle dilation. Significant small vessel disease noted in bihemispheric region. CTA of head and neck revealed no arterial occlusion or dissection. Multiple segments of atherosclerotic changes and arterial stenosis in the neck and intracranial arteries. It appears there is severe stenosis of the origin of the right vertebral artery yet patent distally, severe stenosis of the right vertebral artery within the right foramen transversarium of C2 yet patent distally. Dense atherosclerotic calcification of the V4 segment of the left vertebral artery yet patent distally. Significant atherosclerotic calcifications of the superior aspect of the right common carotid artery extending into the proximal portion of the right internal and external carotid arteries causing severe stenosis about 90% at the origin of the right external carotid artery and 65% of the origin of the right ICA. 50% stenosis of the proximal portion of the left ICA by a densely calcified atheromatous plaque yet patent distally. Severe (more than 90%) stenosis of the proximal portion of the left external carotid artery. Chest x-ray showed basilar atelectasis versus early infiltrate. EKG with sinus rhythm, minimal ST depression. Patient has history of diabetes for 10 years, hypertension, never smoked, does not drink alcohol. Review of Systems Patient denies headache, any chest pain or abdominal pain. Other review of systems could not be elicited because of mental status. ROS unobtainable: due to mental status Past Medical History Past Medical History: Coronary Artery Disease (CAD), Dementia, Diabetes Mellitus, GERD/Reflux, Hypertension Additional Past Medical History / Comment(s): edema History of Any Multi-Drug Resistant Organisms: None Reported Past Surgical History: Coronary Bypass/CABG Past Anesthesia/Blood Transfusion Reactions: No Reported Reaction Past Psychological History: No Psychological Hx Reported Smoking Status: Unknown if ever smoked Past Alcohol Use History: None Reported Past Drug Use History: None Reported - Past Family History Father Family Medical History: Unable to Obtain Medications and Allergies Home Medications Medication Instructions Recorded Confirmed Type Aspirin EC [Ecotrin Low Dose] 81 mg PO HS@1600 01/30/18 01/01/22 History amLODIPine [Norvasc] 10 mg PO DAILY PRN 04/02/19 01/01/22 History Insulin NPH Hum/Reg Insulin Hm 10 unit SQ AC-BRKFST@0700 10/14/19 01/01/22 History [humuLIN 70/30 Kwikpen] Insulin NPH Hum/Reg Insulin Hm 18 unit SQ AC-SUPPER@1600 10/14/19 01/01/22 History [humuLIN 70/30 Kwikpen] Omeprazole [PriLOSEC] 20 mg PO DAILY@0700 10/14/19 01/01/22 History Sucralfate [Carafate] 1 gm PO BID@0700,1600 10/14/19 01/01/22 History Acetaminophen Tab [Tylenol Tab] 500 mg PO Q4H PRN 01/01/22 01/01/22 History Ascorbic Acid [Vitamin C] 500 mg PO DAILY@0700 01/01/22 01/01/22 History Cholecalciferol (Vitamin D3) 125 mcg PO DAILY@0700 01/01/22 01/01/22 History [Vitamin D3 (125 MCG = 5,000 IU)] Zinc Sulfate [Orazinc] 220 mg PO DAILY@0700 01/01/22 01/01/22 History guaiFENesin [guaiFENesin Oral 2 - 4 tsp PO Q4H PRN 01/01/22 01/01/22 History Solution] metFORMIN HCL 500 mg PO HS@1600 01/01/22 01/01/22 History tiZANidine [Zanaflex] 2 mg PO DAILY@0700 01/01/22 01/01/22 History traMADol-ACETAMINOP 37.5-325MG 2 tab PO BID@0700,1600 01/01/22 01/01/22 History [Ultracet] Allergies Allergy/AdvReac Type Severity Reaction Status Date / Time No Known Allergies Allergy Verified 01/01/22 09:40 Physical Examination - Vital Signs Vital Signs: Vital Signs Temp Pulse Resp BP Pulse Ox 01/01/22 19:43 98.1 F 82 18 183/88 97 01/01/22 17:32 97.6 F 74 18 156/99 98 01/01/22 14:19 67 16 156/78 99 01/01/22 11:35 97.6 F 70 16 164/84 98 01/01/22 10:30 70 18 174/83 98 01/01/22 10:15 69 18 174/86 98 01/01/22 10:00 67 18 175/82 98 01/01/22 09:36 97.3 F L 65 16 160/82 99 Intake and Output 01/01/22 01/01/22 01/02/22 14:59 22:59 06:59 Other: Weight 53.388 kg 53.388 kg Patient is an elderly male in no acute distress. Patient is alert awake, appears very pleasant. Patient is oriented 1 (self). Patient knows his name and complete date of . He could not tell the current city or the state or the month or the year. She could not tell name of the current president. Speech and language functions are normal. Patient can name objects, can repeat and follow directions. Attention, concentration and fund of knowledge is quite limited. Patient has positive palmomental reflex. On cranial examination, pupils are equal, round and reacting to light, visual atkins are full on confrontation, with no neglect. His extraocular muscles are intact with no nystagmus. Face is symmetric, tongue protrudes to the midline. Palatal elevation and sensation normal, hearing is at least moderately decreased and shoulder shrug normal, facial sensation normal. Shoulder shrug normal. On muscle strength testing, there is no pronator drift and the strength is normal in arms distally and proximally. In the lower limbs, (right/left) patient's hip flexion is 3+/4+, ankle dorsiflexion 4/5. Deep tendon reflexes are symmetric, 2 in the upper limbs, 2 at the knees 1 ankles and plantars downgoing. Sensory to touch is equal with no neglect. Cerebellar function showed no ataxia for [id number] testing. Tone and bulk of muscles normal. Gait not checked. Patient is wheelchair bound. On general examination, there is no carotid bruit or murmur, S1-S2 audible. Abdomen is soft nontender. Chest is clear. Peripheral pulses are present. Patient has mild peripheral edema. Results - Laboratory Findings CBC and BMP: 01/01/22 10:12 01/01/22 14:18 Abnormal Lab Findings: Abnormal Labs 01/01/22 01/01/22 01/01/22 10:12 14:18 21:26 RBC 4.25 L BUN 26 H POC Glucose (mg/dL) 151 H Assessment and Plan Assessment: * Episode of altered mental status, with blank stare and unresponsiveness wi thout any convulsive activity. Rule out TIA versus focal seizure. * Dementia, at least moderate degree. * Diabetes * CAD * Hypertension Plan: * CTA of head and neck revealed multiple areas of vascular stenosis, raising concern for possible TIA. Patient takes aspirin 81 mg daily. Patient will be started on dual antiplatelet medication to prevent recurrent stroke/TIA based upon cerebro-vascular disease. After 21 days, may stop aspirin and continue Plavix 75 mg daily. * 2-D echo to rule out embolic source. * Hemoglobin A1c, fasting lipid panel. * EEG to rule out any epileptiform activity. We will consider antiepileptic agent, only if EEG shows any epileptiform activity. * Telemetry monitoring to rule out arrhythmia. * B12, folate. * Discussed with patient's daughter in detail. * Thank you for the consult
[2022-01-02 06:36] LABS: Glucose,Whole Blood 149 mg/dL (75-99)
[2022-01-02] MEDS: tiZANidine 4 MG TAB PO SCH (06:43)
[2022-01-02] MEDS: ASCORBIC ACID 500 MG TAB PO SCH (06:43)
[2022-01-02] MEDS: INSULIN ASPART (NovoLOG) 100 UNIT/ML VIAL SQ SCH ×3 (06:44→18:35)
[2022-01-02] MEDS: INSULN ASP PRT/INSULIN ASPART 100 UNIT/ML 10 ML VIAL SQ SCH ×2 (06:44→17:12)
[2022-01-02] MEDS: PANTOPRAZOLE 40 MG TABLET PO SCH (06:44)
[2022-01-02] MEDS: CHOLECALCIFEROL 125 MCG (5000 IU) TABLET PO SCH (06:44)
--- NOTE | 2022-01-02 07:56 | ECHOF ---
Referral Reason:AMS, seizure vs TIA MEASUREMENTS -------- HEIGHT: 160.0 cm WEIGHT: 53.1 kg BP: RVIDd: 1.9 cm (< 3.3) IVSd: 1.2 cm (0.6 - 1.1) LVIDd: 4.3 cm (3.9 - 5.3) LVPWd: 1.6 cm (0.6 - 1.1) IVSs: 1.6 cm LVIDs: 3.5 cm LVPWs: 1.1 cm LA Diam: 3.8 cm (2.7 - 3.8) LAESV Index (A-L): 31.39 ml/m Ao Diam: 3.2 cm (2.0 - 3.7) AV Cusp: 1.5 cm (1.5 - 2.6) LA Diam: 4.7 cm (2.7 - 3.8) MV EXCURSION: 18.739 mm (> 18.000) MV EF SLOPE: 110 mm/s (70 - 150) EPSS: 1.7 cm MV E Haroldo: 0.43 m/s MV DecT: 165 ms MV A Haroldo: 0.65 m/s MV E/A Ratio: 0.66 RAP: 5.00 mmHg RVSP: 14.07 mmHg FINDINGS -------- Undetermined rhythm. This was a technically good study. The left ventricular size is normal. There is mild concentric left ventricular hypertrophy. Overa ll left ventricular systolic function is low-normal with, an EF between 50 - 55 %. The right ventricle is normal in size. Paradoxical motion of the right ventricular septum is consis tent with post operative status. LA is midly dilated 29-33ml/m2. The right atrial size is normal. The aortic valve is trileaflet, and appears structurally normal. No aortic stenosis or regurgitation. Moderate mitral regurgitation is present. Mild tricuspid regurgitation present. Right ventricular systolic pressure is normal at < 35 mmHg. There is no pulmonic regurgitation present. There is no pericardial effusion. CONCLUSIONS -------- 1. The left ventricular size is normal. 2. There is mild concentric left ventricular hypertrophy. 3. Overall left ventricular systolic function is low-normal with, an EF between 50 - 55 %. 4. The right ventricle is normal in size. 5. Paradoxical motion of the right ventricular septum is consistent with post operative status. 6. LA is midly dilated 29-33ml/m2. 7. The right atrial size is normal. 8. The aortic valve is trileaflet, and appears structurally normal. No aortic stenosis or regurgitati on. 9. Moderate mitral regurgitation is present. 10. Mild tricuspid regurgitation present. 11. There is no pulmonic regurgitation present. 12. There is no pericardial effusion. MANAGER VAN: Carly Strauss RDCS
[2022-01-02] MEDS: traMADol-ACETAMINOP 37.5-325MG 1 EACH TAB PO SCH ×2 (08:11→17:12)
[2022-01-02] MEDS: CLOPIDOGREL 75 MG TAB PO SCH (08:11)
[2022-01-02] MEDS: ENOXAPARIN 40 MG/0.4 ML SYRINGE SQ SCH (08:12)
[2022-01-02 09:04] LABS: Chol/HDL Ratio 2.63 Ratio; LDL Cholesterol,Calculated 53.1 mg/dL (0.0-131.0)
[2022-01-02] MEDS: SODIUM CHLORIDE 0.9% 1,000 ML IV SCH ×2 (12:13→18:35)
[2022-01-02 12:20] LABS: Glucose,Whole Blood 69 mg/dL (75-99)
[2022-01-02 12:20] LABS: Glucose,Whole Blood 68 mg/dL (75-99)
[2022-01-02 12:30] LABS: Glucose,Whole Blood 72 mg/dL (75-99)
--- NOTE | 2022-01-02 12:42 | EEG ---
ELECTROENCEPHALOGRAM REPORT DATE OF SERVICE: 01/02/2022 PREAMBLE: 81-year-old male with episode of possible TIA versus seizure. EEG FINDINGS: 21 channel digital EEG recording with video component, utilizing 10/20 international system with referential and bipolar montages. Background consists of moderately well- developed and regulated mixed frequencies of 8-9 hertz alpha, intermixed with some theta and some delta activity seen in bihemispheric region. Background does not seem to be clearly reactive to eye opening or closing. Photic driving response was not seen. Drowsiness was seen with appearance of bilaterally symmetric theta frequency rhythm. Deeper stages of sleep were not seen. No focal or generalized epileptiform activity was seen. IMPRESSION: This is a mildly abnormal EEG due to intermittent background slowing. This is suggestive of mild cerebral dysfunction as can be seen with encephalopathy of metabolic, vascular or medication effect. No epileptiform activity was seen. MMODL / IJN: [id number] /
--- NOTE | 2022-01-02 15:23 | P.DS ---
Providers Date of admission: 01/01/22 12:42 Expected date of discharge: 01/02/22 Attending physician: Surya Hardy Consults: 01/01/22 12:44 Consult Physician Routine Consulting Provider: Chong Macias Consult Reason/Comments: AMS. aphasia Do you want consulting provider notified?: Yes Primary care physician: [facility] Course: Chief Complaint: Decreased responsiveness This is a pleasant 81-year-old patient who follows with Dr. Tavarez. Chronic stable medical conditions include COPD, dementia, diabetes, GERD, hypertension and prior history of coronary bypass., Baseline tremors History is obtained by daughterJosé Antonio Buchanan at the bedside. Resident of [facility]. Has a walker but normally uses a wheelchair. At her baseline he does recognize his daughter and the caregivers. Able to feed himself. Does have a diaper. Today while having breakfast patient became less responsive started stating out. No shaking episode was noted. No frothing. Patient does get these episodes occasionally but this tends more protracted period lasted for a few more minutes. Had a baseline patient is incontinent. Patient able to answer simple questions for me. No prior history of seizure or head injury. January 02: Daughter the bedside. EEG negative for epilepsy. Discussed with Dr. Cristina from neurology. We will overlap 3 weeks of aspirin and Plavix and then continue Plavix. In this is in view of his computed tomography scan findings. Given patient's advanced age prognosis guarded. Past medical history to include: CAD with bypass, dementia, diabetes, GERD, hypertension, does use a wheelchair Social history: Does use a wheelchair. No history of smoking or alcohol. Lives at [facility]. Family history: Reviewed, noncontributory to presentation Physical examination: VITAL SIGNS: 98.5, 70, 18, 126/72, 97% room air GENERAL: Reclining in bed, comfortable EYES: Pupils equal. Conjunctiva normal. HEENT: External appearance of nose and ears normal, oral cavity grossly normal. NECK: JVD not raised; masses not palpable. HEART: First and second heart sounds are normal; no edema. LUNGS: Respiratory rate normal; clear to auscultation. ABDOMEN: Soft, nontender, liver spleen not palpable, no masses palpable. PSYCH: Patient able to answer only very simple questionsl. MUSCULOSKELETAL:No Clubbing/cyanosis;muscles-grossly intact. Evidence of OA in the joints NEUROLOGICAL: Cranial nerves grossly intact; no facial asymmetry, power and sensation grossly intact. Tremors INVESTIGATIONS, reviewed in the clinical context: 2-D echocardiogram: EF 50-55%. Moderate MR. EEG: Negative for epilepsy White count 6.2 hemoglobin 13.4 platelets 245 UA: Negative EKG tracing personally reviewed by me-normal sinus rhythm. Rate [address] segment changes Chest x-ray film personally reviewed by me-lung atkins clear CT angiography of the brain: Multiple segments of atherosclerotic changes and arterial stenosis in the neck and intracranial arteries. Small acute/hyperacute infarct cannot be excluded. Computed tomography scan of the brain: Age-related changes. Nothing acute reported Assessment and plan: -Probable TIA Aspirin Plavix for 3 weeks. Didn't continue Plavix -CAD with a prior history of coronary bypass Aspirin 81 mg daily at bedtime. -Diabetes mellitus type 2 chronically on insulin Continue with Novolin 70/30. 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 No significant stenosis of the internal carotid. Disposition: Home Plan - Discharge Summary Discharge Rx Participant: No New Discharge Prescriptions: No Action Aspirin EC [Ecotrin Low Dose] 81 mg PO HS@1600 amLODIPine [Norvasc] 10 mg PO DAILY PRN PRN Reason: SBP> 160 Omeprazole [PriLOSEC] 20 mg PO DAILY@0700 Sucralfate [Carafate] 1 gm PO BID@0700,1600 Insulin NPH Hum/Reg Insulin Hm [humuLIN 70/30 Kwikpen] 18 unit SQ AC- SUPPER@1600 Insulin NPH Hum/Reg Insulin Hm [humuLIN 70/30 Kwikpen] 10 unit SQ AC- BRKFST@0700 Ascorbic Acid [Vitamin C] 500 mg PO DAILY@0700 guaiFENesin [guaiFENesin Oral Solution] 2 - 4 tsp PO Q4H PRN PRN Reason: Cold Symptoms tiZANidine [Zanaflex] 2 mg PO DAILY@0700 traMADol-ACETAMINOP 37.5-325MG [Ultracet] 2 tab PO BID@0700,1600 Acetaminophen Tab [Tylenol Tab] 500 mg PO Q4H PRN PRN Reason: Pain Or Fever > 100.5 Cholecalciferol (Vitamin D3) [Vitamin D3 (125 MCG = 5,000 IU)] 125 mcg PO DAILY@0700 metFORMIN HCL 500 mg PO HS@1600 Zinc Sulfate [Orazinc] 220 mg PO DAILY@0700 Discharge Medication List Aspirin EC [Ecotrin Low Dose] 81 mg PO HS@1600 01/30/18 [History] amLODIPine [Norvasc] 10 mg PO DAILY PRN 04/02/19 [History] Insulin NPH Hum/Reg Insulin Hm [humuLIN 70/30 Kwikpen] 10 unit SQ AC-BRKFST@0700 10/14/19 [History] Insulin NPH Hum/Reg Insulin Hm [humuLIN 70/30 Kwikpen] 18 unit SQ AC-SUPPER@159910/14/19 [History] Omeprazole [PriLOSEC] 20 mg PO DAILY@0700 10/14/19 [History] Sucralfate [Carafate] 1 gm PO BID@0700,159910/14/19 [History] Acetaminophen Tab [Tylenol Tab] 500 mg PO Q4H PRN 01/01/22 [History] Ascorbic Acid [Vitamin C] 500 mg PO DAILY@0701/01/22 [History] Cholecalciferol (Vitamin D3) [Vitamin D3 (125 MCG = 5,000 IU)] 125 mcg PO DAILY@0700 01/01/22 [History] Zinc Sulfate [Orazinc] 220 mg PO DAILY@0700 01/01/22 [History] guaiFENesin [guaiFENesin Oral Solution] 2 - 4 tsp PO Q4H PRN 01/01/22 [History] metFORMIN HCL 500 mg PO HS@1600 01/01/22 [History] tiZANidine [Zanaflex] 2 mg PO DAILY@69901/01/22 [History] traMADol-ACETAMINOP 37.5-325MG [Ultracet] 2 tab PO BID@0700,1600 01/01/22 [History] Follow up Appointment(s)/Referral(s): Hari Tavarez MD [Primary Care Provider] - 1-2 days Activity/Diet/Wound Care/Special Instructions: Patient will need a WC van right back to [facility], daughter is aware of cost and agreeable to this transport back.
[2022-01-02 16:38] LABS: Glucose,Whole Blood 197 mg/dL (75-99)
[2022-01-02] MEDS: metFORMIN 500 MG TAB PO SCH (17:12)
[2022-01-02 20:38] LABS: Glucose,Whole Blood 135 mg/dL (75-99)
[2022-01-03 04:08] VITALS: RESP 16
[2022-01-03 05:47] LABS: Glucose,Whole Blood 104 mg/dL (75-99)
[2022-01-03] MEDS: SODIUM CHLORIDE 0.9% 1,000 ML IV SCH (06:01)
[2022-01-03] MEDS: INSULIN ASPART (NovoLOG) 100 UNIT/ML VIAL SQ SCH (06:02)
[2022-01-03] MEDS: traMADol-ACETAMINOP 37.5-325MG 1 EACH TAB PO SCH (06:10)
[2022-01-03] MEDS: PANTOPRAZOLE 40 MG TABLET PO SCH (06:10)
[2022-01-03] MEDS: tiZANidine 4 MG TAB PO SCH (06:10)
[2022-01-03] MEDS: ASCORBIC ACID 500 MG TAB PO SCH (06:11)
[2022-01-03] MEDS: CHOLECALCIFEROL 125 MCG (5000 IU) TABLET PO SCH (06:11)
[2022-01-03] MEDS: CLOPIDOGREL 75 MG TAB PO SCH (08:52)
[2022-01-03] MEDS: ENOXAPARIN 40 MG/0.4 ML SYRINGE SQ SCH (08:52)
[2022-01-03 08:53] VITALS: BP 91/54; PULSE 70; TEMP 97
[2022-01-03] MEDS: INSULN ASP PRT/INSULIN ASPART 100 UNIT/ML 10 ML VIAL SQ SCH (09:30)
--- NOTE | 2022-01-03 09:37 | P.PN ---
Subjective Progress Note Date: 01/02/22 Patient was seen for a follow-up. Patient's daughters were present today. They feel patient is back to baseline. No new concerns. Objective - Vital Signs Vital signs: Vital Signs Temp 97.0 F L 01/03/22 08:00 Pulse 70 01/03/22 08:00 Resp 16 01/03/22 08:00 BP 91/54 01/03/22 08:00 Pulse Ox 96 01/03/22 08:00 Intake & Output 01/02/22 01/03/22 01/03/22 18:59 06:59 18:59 Intake Total 1010 120 Output Total 300 500 250 Balance 710 -380 -250 Intake: Oral 1010 120 Output: Urine 300 500 250 Other: Voiding Method External Catheter External Catheter External Catheter # Bowel Movements 1 1 - Exam Patient is laying comfortably in the bed. His examination is essentially unchanged. - Labs CBC & Chem 7: 01/01/22 10:12 01/01/22 14:18 Labs: Abnormal Lab Results - Last 24 Hours (Table) 01/02/22 01/02/22 01/02/22 Range/Units 12:00 12:17 12:28 POC Glucose (mg/dL) 69 L 68 L 72 L (75-99) mg/dL 01/02/22 01/02/22 01/03/22 Range/Units 16:36 20:37 05:46 POC Glucose (mg/dL) 197 H 135 H 104 H (75-99) mg/dL Assessment and Plan Assessment: * Episode of altered mental status, with blank stare and unresponsiveness without any convulsive activity. Probable TIA. Seizure very unlikely with negative EEG. * Dementia, at least moderate degree. * Diabetes * CAD * Hypertension Plan: * CTA of head and neck revealed multiple areas of vascular stenosis, raising concern for possible TIA. Patient takes aspirin 81 mg daily. Patient will be started on dual antiplatelet medication to prevent recurrent stroke/TIA based upon cerebro-vascular disease. After 21 days, may stop aspirin and continue Plavix 75 mg daily. * 2-D echo revealed normal left-ventricular size. Mild concentric LVH. EF is low normal between 50-55%. Paradoxical motion of the right ventricular septum is consistent with postoperative status. LA is mildly dilated. Moderate MR. * Hemoglobin A1c 6.2, fasting lipid panel with cholesterol 124, LDL 53, HDL 47, triglycerides 119. No indications for statins because LDL is < 70. * EEG was mildly abnormal due to intermittent background slowing. This is suggestive of mild cerebral dysfunction as can be seen with encephalopathy of metabolic, vascular or medication effect. No epileptiform activity was seen. No indication for AED. * B12 395, folate 14.1. We will start B12 1000 g orally daily. May consider adding cognitive enhancing medication as an outpatient. This can be addressed as an outpatient with a neurologist. * Discussed with patient's daughter in detail. Neurologically clear.
[2022-01-03] MEDS ORDERED: ASPIRIN 81 MG PO SCH (09:45)
[2022-01-03] MEDS ORDERED: CYANOCOBALAMIN 500 MCG TAB PO SCH (09:45)
--- NOTE | 2022-01-03 14:28 | P.DS ---
Providers Date of admission: 01/01/22 12:42 Expected date of discharge: 01/03/22 Attending physician: Surya Hardy Consults: 01/01/22 12:44 Consult Physician Routine Consulting Provider: Chong Macias Consult Reason/Comments: AMS. aphasia Do you want consulting provider notified?: Yes Primary care physician: [facility] Course: Chief Complaint: Decreased responsiveness This is a pleasant 81-year-old patient who follows with Dr. Tavarez. Chronic stable medical conditions include COPD, dementia, diabetes, GERD, hypertension and prior history of coronary bypass., Baseline tremors History is obtained by daughterJosé Antonio Buchanan at the bedside. Resident of [facility]. Has a walker but normally uses a wheelchair. At her baseline he does recognize his daughter and the caregivers. Able to feed himself. Does have a diaper. Today while having breakfast patient became less responsive started stating out. No shaking episode was noted. No frothing. Patient does get these episodes occasionally but this tends more protracted period lasted for a few more minutes. Had a baseline patient is incontinent. Patient able to answer simple questions for me. No prior history of seizure or head injury. January 02: Daughter the bedside. EEG negative for epilepsy. Discussed with Dr. Cristina from neurology. We will overlap 3 weeks of aspirin and Plavix and then continue Plavix. In this is in view of his computed tomography scan findings. Given patient's advanced age prognosis guarded. January 03: Stable. No new issues. He'll be discharged today. Transport arranged. Oral intake fair. Past medical history to include: CAD with bypass, dementia, diabetes, GERD, hypertension, does use a wheelchair Social history: Does use a wheelchair. No history of smoking or alcohol. Lives at [facility]. Family history: Reviewed, noncontributory to presentation Physical examination: VITAL SIGNS: 97, 70, 16, 91/54 GENERAL: comfortable EYES: Pupils equal. Conjunctiva normal. HEENT: External appearance of nose and ears normal, oral cavity grossly normal. NECK: JVD not raised; masses not palpable. HEART: First and second heart sounds are normal; no edema. LUNGS: Respiratory rate normal; clear to auscultation. ABDOMEN: Soft, nontender, liver spleen not palpable, no masses palpable. PSYCH: Patient able to answer only very simple questionsl. MUSCULOSKELETAL:No Clubbing/cyanosis;muscles-grossly intact. Evidence of OA in the joints NEUROLOGICAL: Cranial nerves grossly intact; no facial asymmetry, power and sensation grossly intact. Tremors INVESTIGATIONS, reviewed in the clinical context: 2-D echocardiogram: EF 50-55%. Moderate MR. EEG: Negative for epilepsy White count 6.2 hemoglobin 13.4 platelets 245 UA: Negative EKG tracing personally reviewed by me-normal sinus rhythm. Rate [address] segment changes Chest x-ray film personally reviewed by me-lung atkins clear CT angiography of the brain: Multiple segments of atherosclerotic changes and arterial stenosis in the neck and intracranial arteries. Small acute/hyperacute infarct cannot be excluded. Computed tomography scan of the brain: Age-related changes. Nothing acute reported Assessment and plan: -Probable TIA Overlap Aspirin and Plavix for 3 weeks. Then continue Plavix -CAD with a prior history of coronary bypass Aspirin 81 mg daily at bedtime. -Diabetes mellitus type 2 chronically on insulin Continue with Novolin 70/30. 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 No significant stenosis of the internal carotid. Disposition: Home Plan - Discharge Summary Discharge Rx Participant: No New Discharge Prescriptions: New INSULIN ASPART (NovoLOG) [NovoLOG (formulary)] 0 unit SQ AC-TID ml Clopidogrel [Plavix] 75 mg PO DAILY #30 tab Continue amLODIPine [Norvasc] 10 mg PO DAILY PRN PRN Reason: SBP> 160 Omeprazole [PriLOSEC] 20 mg PO DAILY@0700 Insulin NPH Hum/Reg Insulin Hm [humuLIN 70/30 Kwikpen] 18 unit SQ AC- SUPPER@1600 Insulin NPH Hum/Reg Insulin Hm [humuLIN 70/30 Kwikpen] 10 unit SQ AC- BRKFST@0700 Ascorbic Acid [Vitamin C] 500 mg PO DAILY@0700 guaiFENesin [guaiFENesin Oral Solution] 2 - 4 tsp PO Q4H PRN PRN Reason: Cold Symptoms tiZANidine [Zanaflex] 2 mg PO DAILY@0700 traMADol-ACETAMINOP 37.5-325MG [Ultracet] 2 tab PO BID@0700,1600 Acetaminophen Tab [Tylenol] 500 mg PO Q4H PRN PRN Reason: Pain Or Fever > 100.5 Cholecalciferol (Vitamin D3) [Vitamin D3 (125 MCG = 5,000 IU)] 125 mcg PO DAILY@0700 metFORMIN HCL 500 mg PO HS@1600 Aspirin EC [Ecotrin Low Dose] 81 mg PO HS@1600 #21 tab Discontinued Sucralfate [Carafate] 1 gm PO BID@0700,1600 Zinc Sulfate [Orazinc] 220 mg PO DAILY@0700 Discharge Medication List amLODIPine [Norvasc] 10 mg PO DAILY PRN 04/02/19 [History] Insulin NPH Hum/Reg Insulin Hm [humuLIN 70/30 Kwikpen] 10 unit SQ AC-BRKFST@0700 10/14/19 [History] Insulin NPH Hum/Reg Insulin Hm [humuLIN 70/30 Kwikpen] 18 unit SQ AC-SUPPER@1600 10/14/19 [History] Omeprazole [PriLOSEC] 20 mg PO DAILY@0700 10/14/19 [History] Acetaminophen Tab [Tylenol] 500 mg PO Q4H PRN 01/01/22 [History] Ascorbic Acid [Vitamin C] 500 mg PO DAILY@0700 01/01/22 [History] Cholecalciferol (Vitamin D3) [Vitamin D3 (125 MCG = 5,000 IU)] 125 mcg PO DAILY@0700 01/01/22 [History] guaiFENesin [guaiFENesin Oral Solution] 2 - 4 tsp PO Q4H PRN 01/01/22 [History] metFORMIN HCL 500 mg PO HS@1600 01/01/22 [History] tiZANidine [Zanaflex] 2 mg PO DAILY@0700 01/01/22 [History] traMADol-ACETAMINOP 37.5-325MG [Ultracet] 2 tab PO BID@0700,1600 01/01/22 [History] Aspirin EC [Ecotrin Low Dose] 81 mg PO HS@1600 #21 tab 01/02/22 [Rx] Clopidogrel [Plavix] 75 mg PO DAILY #30 tab 01/02/22 [Rx] INSULIN ASPART (NovoLOG) [NovoLOG (formulary)] 0 unit SQ AC-TID ml 01/02/22 [Rx] Follow up Appointment(s)/Referral(s): Hari Tavarez MD [Primary Care Provider] - 01/06/22 (will call the home with a time the physician will be there) Patient Instructions/Handouts: Altered Mental Status (GEN) Activity/Diet/Wound Care/Special Instructions: Patient will need a WC van ride back to [facility], daughter is aware of cost and agreeable to this transport back. Continue both aspirin and Plavix for 3 weeks then stop aspirin and continue Plavix Discharge Disposition: HOME SELF-CARE
== END 2022-01-03 11:36 | disposition home or self-care (01) | DRG 69 ==
LOC: EC 09:33 → EEVIPCON 12:42 → 3SCARD 12:42
PROVIDERS: ADMIT Hospitalist; ATTEND Hospitalist
DX: G45.9 Transient cerebral ischemic attack, unspecified (principal); R47.01 Aphasia; E11.9 Type 2 diabetes mellitus without complications; F02.80 Dementia in other diseases classified elsewhere, unspecified severity, without behavioral disturbance, psychotic disturbance, mood disturbance, and anxiety; G30.1 Alzheimer's disease with late onset; I10 Essential (primary) hypertension; I25.10 Atherosclerotic heart disease of native coronary artery without angina pectoris; I65.01 Occlusion and stenosis of right vertebral artery; I77.1 Stricture of artery; J44.9 Chronic obstructive pulmonary disease, unspecified; R25.1 Tremor, unspecified; K21.9 Gastro-esophageal reflux disease without esophagitis; M47.816 Spondylosis without myelopathy or radiculopathy, lumbar region; R32 Unspecified urinary incontinence; Z79.02 Long term (current) use of antithrombotics/antiplatelets; Z79.4 Long term (current) use of insulin; Z79.82 Long term (current) use of aspirin; Z79.899 Other long term (current) drug therapy; Z95.1 Presence of aortocoronary bypass graft; Z99.3 Dependence on wheelchair
CPT/HCPCS: 36415; 70450; 70496; 70498; 71045; 80053; 80061; 81003; 82607; 82746; 83036; 84484; 85025; 85610; 85730; 93005; 93306; 95816; 96360; 99285